=== PATIENT | male | born 1935 | race Caucasian/White ===

== ENCOUNTER 2016-05-17 15:45 | Inpatient (IN) | payer OTHER ==
[2016-05-19] MEDS ORDERED: Nitroglycerin 0.4 MG Tab.SL *PTOM SL PRN (10:35)
[2016-05-19] MEDS ORDERED: HALOPERIDOL 0.5 MG PO PRN (10:50)
[2016-05-19] MEDS ORDERED: Morphine Oral Concentrate 20 MG/ML 30 ML Bottle PO PRN (10:51)
[2016-05-19] MEDS ORDERED: Hyoscyamine 0.125 MG Tab.SL *PTOM PO PRN (10:53)
[2016-05-19] MEDS ORDERED: Scopolamine 1.5 MG Transdermal Patch *PTOM TOP PRN (10:55)
[2016-05-19] MEDS ORDERED: LORAZEPAM 0.5 MG PO PRN (10:56)
[2016-05-19] MEDS ORDERED: Codeine/guaiFENesin 100-10 MG/5 ML Syrup 5 ML Cup PO PRN (11:02)
[2016-05-19] MEDS: GLYBURIDE 5 MG PO SCH ×2 (12:16→18:48)
[2016-05-19] MEDS: Losartan 100 MG Tab *PTOM PO SCH (12:17)
[2016-05-19] MEDS ORDERED: Loperamide 2 MG Cap PO PRN (15:21)
[2016-05-19] MEDS: ACETAMINOPHEN 325 MG PO PRN ×2 (16:26→22:34)
[2016-05-19] MEDS: Simvastatin 20 MG Tab *PTOM PO SCH (20:50)
[2016-05-19] MEDS: ZANTAC 150 MG PO PRN (21:32)
[2016-05-19] MEDS: SIMETHICONE 180 MG PO PRN (21:33)
[2016-05-19] MEDS: ATENOLOL 100 MG PO SCH (21:38)
[2016-05-20] MEDS: Isosorbide Mononitrate 60 MG Tab.ER *PTOM PO SCH (08:48)
[2016-05-20] MEDS: ATROPINE PO SCH (08:48)
[2016-05-20] MEDS: [UNRECOGNIZED DRUG - OTHER] PO SCH (08:48)
[2016-05-20] MEDS: DIPHENOXYLATE PO SCH (08:48)
[2016-05-20] MEDS: LORATADINE 10 MG PO SCH (08:49)
[2016-05-20] MEDS: Furosemide 40 MG Tab *PTOM PO SCH (08:49)
[2016-05-20] MEDS: Clopidogrel 75 MG Tab *PTOM PO SCH (08:50)
[2016-05-20] MEDS ORDERED: ATENOLOL 100 MG PO SCH (09:00)
[2016-05-20] MEDS: Albuterol 8 GM Inhaler *PTOM INH PRN (09:46)
[2016-05-20] MEDS: GLYBURIDE 5 MG PO SCH ×3 (10:33→17:43)
[2016-05-20] MEDS: Losartan 100 MG Tab *PTOM PO SCH ×2 (11:44→11:45)
[2016-05-20] MEDS: ZANTAC 150 MG PO PRN ×2 (13:40→23:44)
[2016-05-20] MEDS: SIMETHICONE 180 MG PO PRN ×2 (13:41→21:20)
[2016-05-20] MEDS: Simvastatin 20 MG Tab *PTOM PO SCH (21:19)
[2016-05-20] MEDS: ATENOLOL 100 MG PO SCH (21:23)
[2016-05-20] MEDS ORDERED: Dicyclomine 20 MG Tab PO PRN (21:50)
[2016-05-20] MEDS: ACETAMINOPHEN 325 MG PO PRN (22:50)
[2016-05-21] MEDS: Albuterol 8 GM Inhaler *PTOM INH PRN (07:54)
[2016-05-21] MEDS ORDERED: Loperamide 2 MG Cap PO PRN (08:42)
[2016-05-21] MEDS: Isosorbide Mononitrate 60 MG Tab.ER *PTOM PO SCH (08:50)
[2016-05-21] MEDS: LORATADINE 10 MG PO SCH (08:50)
[2016-05-21] MEDS: Furosemide 40 MG Tab *PTOM PO SCH (08:51)
[2016-05-21] MEDS: [UNRECOGNIZED DRUG - OTHER] PO SCH (08:51)
[2016-05-21] MEDS: Clopidogrel 75 MG Tab *PTOM PO SCH (08:52)
[2016-05-21] MEDS: ATROPINE PO SCH (08:52)
[2016-05-21] MEDS: DIPHENOXYLATE PO SCH (08:52)
[2016-05-21] MEDS: Losartan 100 MG Tab *PTOM PO SCH (13:11)
[2016-05-21] MEDS: GLYBURIDE 5 MG PO SCH ×2 (13:12→19:38)
[2016-05-21] MEDS: Simvastatin 20 MG Tab *PTOM PO SCH (21:09)
[2016-05-21] MEDS: ATENOLOL 100 MG PO SCH (21:10)
[2016-05-21] MEDS: ZANTAC 150 MG PO PRN (21:21)
[2016-05-21] MEDS: ACETAMINOPHEN 325 MG PO PRN (22:46)
[2016-05-22] MEDS: ZANTAC 150 MG PO PRN (03:03)
[2016-05-22] MEDS: LORATADINE 10 MG PO SCH (09:48)
[2016-05-22] MEDS: Isosorbide Mononitrate 60 MG Tab.ER *PTOM PO SCH (09:49)
[2016-05-22] MEDS: [UNRECOGNIZED DRUG - OTHER] PO SCH (09:49)
[2016-05-22] MEDS: ATROPINE PO SCH (09:50)
[2016-05-22] MEDS: DIPHENOXYLATE PO SCH (09:50)
[2016-05-22] MEDS: Furosemide 40 MG Tab *PTOM PO SCH (09:50)
[2016-05-22] MEDS: Clopidogrel 75 MG Tab *PTOM PO SCH (09:53)
[2016-05-22 10:37] VITALS: BP 146/58
[2016-05-22] MEDS: SIMETHICONE 180 MG PO PRN (11:30)
[2016-05-22] MEDS: GLYBURIDE 5 MG PO SCH (11:31)
[2016-05-22] MEDS: Losartan 100 MG Tab *PTOM PO SCH (11:31)
--- NOTE | 2016-07-09 12:55 | HP ---
ADMISSION DATE: 05/19/2016 Scott Payan is an elderly gentleman, had a recent respite care at [place]. Clinical indications include complicated congestive failure and failure to thrive. Interval care and management was appropriate at time of his discharge, comfortable with improvement and progress. /[id number] DELICIA/FLOYD
== END 2016-05-22 13:00 | disposition hospice, home (50) | DRG 951 ==
LOC: FB.MS 05-19 10:06
PROVIDERS: ADMIT Family Medicine; ATTEND Family Medicine
DX: Z75.5 Holiday relief care (principal); I25.2 Old myocardial infarction; I50.9 Heart failure, unspecified; J44.9 Chronic obstructive pulmonary disease, unspecified; N18.9 Chronic kidney disease, unspecified; Z66 Do not resuscitate; Z51.5 Encounter for palliative care
CPT/HCPCS: 82962; A9270-GY; Q5005

== ENCOUNTER 2016-07-06 10:52 | Inpatient (IN) | payer OTHER ==
[2016-07-06] MEDS ORDERED: Nitroglycerin 0.4 MG Tab.SL *PTOM SL PRN (13:01)
[2016-07-06] MEDS ORDERED: Albuterol 8 GM Inhaler *PTOM INH PRN (13:02)
[2016-07-06] MEDS ORDERED: HALOPERIDOL 0.5 MG PO PRN (13:09)
[2016-07-06] MEDS ORDERED: Morphine Oral Concentrate 20 MG/ML 30 ML Bottle *PTOM PO PRN (13:10)
[2016-07-06] MEDS ORDERED: Hyoscyamine 0.125 MG Tab.SL PO PRN (13:11)
[2016-07-06] MEDS ORDERED: Scopolamine 1.5 MG Transdermal Patch *PTOM TOP PRN (13:12)
[2016-07-06] MEDS ORDERED: LORAZEPAM 0.5 MG PO PRN (13:13)
[2016-07-06] MEDS ORDERED: ACETAMINOPHEN 325 MG PO PRN (13:20)
[2016-07-06] MEDS ORDERED: SIMETHICONE 180 MG PO PRN (13:21)
[2016-07-06] MEDS ORDERED: GUAIFENESIN PO PRN (13:22)
[2016-07-06] MEDS ORDERED: CODEINE PO PRN (13:22)
[2016-07-06] MEDS ORDERED: ZANTAC 150MG PO PRN (13:23)
[2016-07-06] MEDS ORDERED: LORATADINE 10 MG PO PRN (13:24)
[2016-07-06] MEDS ORDERED: Cocoa Butter/Phenylephrine Rectal Supp RECTAL PRN (13:24)
[2016-07-06] MEDS ORDERED: Diclofenac Sodium 1% Gel 100 GM Tube TOP PRN (13:26)
[2016-07-06] MEDS ORDERED: DICYCLOMINE 20 MG PO PRN (13:30)
[2016-07-06] MEDS ORDERED: CALCIUM CARBONATE 750 MG PO PRN (13:32)
[2016-07-06] MEDS ORDERED: Codeine/guaiFENesin 100-10 MG/5 ML Syrup 5 ML Cup PO PRN (13:54)
[2016-07-06] MEDS ORDERED: CALCIUM CARBONATE 1000 MG PO PRN (16:00)
[2016-07-06] MEDS: Sucralfate 1 GM Tab *PTOM PO SCH ×2 (17:36→21:09)
[2016-07-06] MEDS: DICYCLOMINE 20 MG PO SCH (17:37)
[2016-07-06] MEDS: METOCLOPRAMIDE 5 MG PO SCH (17:39)
[2016-07-06] MEDS: ATENOLOL 100 MG PO SCH (18:58)
[2016-07-06] MEDS: GLYBURIDE 5 MG PO SCH (19:02)
[2016-07-06] MEDS: OXAZEPAM 15 MG PO SCH (21:11)
[2016-07-06] MEDS: ACETAMINOPHEN 325 MG PO SCH (21:12)
[2016-07-06] MEDS: Simvastatin 20 MG Tab *PTOM PO SCH (21:13)
[2016-07-07] MEDS: Sucralfate 1 GM Tab *PTOM PO SCH ×4 (08:34→20:40)
[2016-07-07] MEDS: METOCLOPRAMIDE 5 MG PO SCH ×3 (08:34→17:39)
[2016-07-07] MEDS: DICYCLOMINE 20 MG PO SCH ×3 (08:36→17:38)
[2016-07-07] MEDS: Aspirin 81 MG Tab.EC *PTOM PO SCH (08:38)
[2016-07-07] MEDS: Furosemide 40 MG Tab *PTOM PO SCH (08:39)
[2016-07-07] MEDS: Isosorbide Mononitrate 60 MG Tab.ER *PTOM PO SCH (08:40)
[2016-07-07] MEDS: Clopidogrel 75 MG Tab *PTOM PO SCH (08:44)
[2016-07-07] MEDS: ATROPINE PO SCH (08:45)
[2016-07-07] MEDS: DIPHENOXYLATE PO SCH (08:45)
[2016-07-07] MEDS: ASCORBIC ACID 500 MG PO SCH (08:46)
[2016-07-07] MEDS: Losartan 100 MG Tab *PTOM PO SCH (12:07)
[2016-07-07] MEDS: GLYBURIDE 5 MG PO SCH ×2 (12:08→19:27)
[2016-07-07] MEDS: ATENOLOL 100 MG PO SCH (19:27)
[2016-07-07] MEDS: Simvastatin 20 MG Tab *PTOM PO SCH (20:41)
[2016-07-07] MEDS: OXAZEPAM 15 MG PO SCH (23:02)
[2016-07-07] MEDS: ACETAMINOPHEN 325 MG PO SCH (23:02)
[2016-07-08] MEDS: Sucralfate 1 GM Tab *PTOM PO SCH ×4 (07:51→20:53)
[2016-07-08] MEDS: METOCLOPRAMIDE 5 MG PO SCH ×3 (07:52→17:39)
[2016-07-08] MEDS: DICYCLOMINE 20 MG PO SCH ×3 (07:53→17:38)
[2016-07-08] MEDS: ASCORBIC ACID 500 MG PO SCH (08:02)
[2016-07-08] MEDS: Furosemide 40 MG Tab *PTOM PO SCH (08:02)
[2016-07-08] MEDS: Aspirin 81 MG Tab.EC *PTOM PO SCH (08:03)
[2016-07-08] MEDS: Isosorbide Mononitrate 60 MG Tab.ER *PTOM PO SCH (08:03)
[2016-07-08] MEDS: Clopidogrel 75 MG Tab *PTOM PO SCH (08:03)
[2016-07-08] MEDS: ATROPINE PO SCH (08:09)
[2016-07-08] MEDS: DIPHENOXYLATE PO SCH (08:09)
[2016-07-08] MEDS: Losartan 100 MG Tab *PTOM PO SCH (12:09)
[2016-07-08] MEDS: GLYBURIDE 5 MG PO SCH ×2 (12:10→17:38)
[2016-07-08] MEDS: ATENOLOL 100 MG PO SCH (17:40)
[2016-07-08] MEDS: ACETAMINOPHEN 325 MG PO SCH (20:53)
[2016-07-08] MEDS: Simvastatin 20 MG Tab *PTOM PO SCH (20:54)
[2016-07-08] MEDS: OXAZEPAM 15 MG PO SCH (20:56)
[2016-07-09] MEDS: DICYCLOMINE 20 MG PO SCH (07:34)
[2016-07-09] MEDS: METOCLOPRAMIDE 5 MG PO SCH (07:35)
[2016-07-09] MEDS: Sucralfate 1 GM Tab *PTOM PO SCH (07:36)
[2016-07-09] MEDS: ASCORBIC ACID 500 MG PO SCH (07:59)
[2016-07-09] MEDS: DIPHENOXYLATE PO SCH (08:00)
[2016-07-09] MEDS: Aspirin 81 MG Tab.EC *PTOM PO SCH (08:00)
[2016-07-09] MEDS: Clopidogrel 75 MG Tab *PTOM PO SCH (08:00)
[2016-07-09] MEDS: Furosemide 40 MG Tab *PTOM PO SCH (08:00)
[2016-07-09] MEDS: Isosorbide Mononitrate 60 MG Tab.ER *PTOM PO SCH (08:00)
[2016-07-09] MEDS: ATROPINE PO SCH (08:00)
[2016-07-09 08:32] VITALS: BP 191/76
--- NOTE | 2016-07-18 09:31 | PN ---
DATE SEEN: 07/09/2016 Scott Payan is an elderly gentleman admitted through hospice for respite care at [facility]. End-stage cardiovascular disease, congestive heart failure, and poor compensation to his underlying heart disease. Respite care timing appropriate. /[id number] DELICIA/FLOYD
== END 2016-07-09 10:30 | disposition hospice, home (50) | DRG 639 ==
LOC: FB.MS 11:56
PROVIDERS: ADMIT Family Medicine; ATTEND Family Medicine
DX: E11.9 Type 2 diabetes mellitus without complications (principal); Z75.5 Holiday relief care; Z51.5 Encounter for palliative care; Z66 Do not resuscitate; Z88.0 Allergy status to penicillin; Z88.8 Allergy status to other drugs, medicaments and biological substances
CPT/HCPCS: 82962; A9270-GY; Q5005

== ENCOUNTER 2016-08-17 20:59 | Observation (INO) | payer MEDICARE, OTHER ==
[2016-08-17] MEDS ORDERED: Ondansetron 4 MG/2 ML SDV ONE (21:40)
[2016-08-17] MEDS ORDERED: Sodium Chloride 0.9% 1,000 ML IV ONE (21:43)
[2016-08-17] MEDS ORDERED: Ondansetron 4 MG/2 ML SDV IVPUSH ONE (21:44)
[2016-08-18] MEDS: Sodium Chloride 0.9% 1,000 ML IV SCH ×2 (00:25→08:25)
[2016-08-18] MEDS ORDERED: MORPHINE SULFATE PO PRN (08:19)
[2016-08-18] MEDS ORDERED: Non-Formulary Medication 1 Each (Ranitidine Hcl [Zantac] 150 MG) PO PRN (08:19)
[2016-08-18] MEDS ORDERED: NITROGLYCERIN 0.4 MG SL PRN (08:19)
--- NOTE | 2016-08-18 08:26 | PCM.HP ---
H&P History of Present Illness - General Date of Service: 08/18/16 Admit Problem/Dx: Admission Diagnosis/Problem Admission Diagnosis/Problem Diarrhea Source of Information: Patient History Limitations: Reports: No Limitations - History of Present Illness Initial Comments - Free Text/Narative: This is an 80-year-old male patient with multiple medical problems. He started having diarrhea night at 7:30. He states he had a diarrhea stool and it was watery he had a stool every hour for 24 hours. He felt he was getting dehydrated so he was went to the walk-in clinic. He was found to have a creatinine of 2.0 and was admitted. He denies fevers, chills, nausea, vomiting , abdominal pain, melena, hematochezia. He denies any exposures to any gastroenteritis. He does take Lomotil half a pill a day for loose stools. - Related Data Allergies/Adverse Reactions: Allergies Allergy/AdvReac Type Severity Reaction Status Date / Time hydromorphone [From Dilaudid] Allergy Lethargy Verified 08/18/16 03:41 penicillin Allergy Cannot Verified 08/18/16 03:41 Remember Sulfa (Sulfonamide Allergy Cannot Verified 08/18/16 03:41 Antibiotics) Remember Home Medications: Home Meds Albuterol [Ventolin HFA] 2 puff INH Q4H PRN 08/18/16 [History] Ascorbate Calcium [Vitamin C] 500 mg PO DAILY 08/18/16 [History] Aspirin 81 mg PO DAILY 08/18/16 [History] Atenolol 100 mg PO WITHDINNER 08/18/16 [History] Clopidogrel [Plavix] 75 mg PO DAILY 08/18/16 [History] Diphenoxylate HCl/Atropine [Diphenoxylate-Atrop 2.5-0.025] 2 tab PO DAILY [History] Furosemide [Lasix] 40 mg PO DAILY 08/18/16 [History] Isosorbide Mononitrate [Isosorbide Mononitrate ER] 60 mg PO DAILY 08/18/16 [ History] Losartan [Cozaar] 50 mg PO DAILY@1200 08/18/16 [History] Morphine Sulfate [Morphine Sulfate ER] 10 mg PO DAILY PRN 08/18/16 [History] Nitroglycerin 0.4 mg SL Q5M PRN 08/18/16 [History] Oxazepam [Oxazepam] 15 mg PO BEDTIME PRN 08/18/16 [History] Pantoprazole Sodium 40 mg PO DAILY 08/18/16 [History] Ranitidine HCl [Zantac] 150 mg PO BID PRN 08/18/16 [History] Simvastatin [Zocor] 10 mg PO BEDTIME 08/18/16 [History] Sucralfate [Carafate] 1 gm PO QIDACANDBED 08/18/16 [History] glyBURIDE [Glyburide] 10 mg PO BID@12,18 08/18/16 [History] Past Medical History HEENT History: Reports: Impaired Vision Cardiovascular History: Reports: CAD, Heart Failure, High Cholesterol, Hypertension, [place], SOB on Exertion Respiratory History: Reports: COPD, Pneumonia, Recurrent, SOB Gastrointestinal History: Reports: Chronic Diarrhea, Hemorrhoids Genitourinary History: Reports: Prostate Disorder, Renal Calculus Musculoskeletal History: Reports: Amputation, RA Neurological History: Reports: None Psychiatric History: Reports: Anxiety Endocrine/Metabolic History: Reports: Diabetes, Type II Dermatologic History: Reports: Seborrheic Dermatitis - Infectious Disease History Infectious Disease History: Reports: Chicken Pox, Measles, Mumps - Past Surgical History HEENT Surgical History: Reports: Cataract Surgery Male Surgical History: Reports: TURP-Transurethral Resection of Prostate Neurological Surgical History: Reports: None Musculoskeletal Surgical History: Reports: Amputation Dermatological Surgical History: Reports: Skin Biopsy Social & Family History - Family History Family Medical History: Noncontributory - Tobacco Use Smoking Status *Q: Unknown Ever Smoked Years of Tobacco use: 30 Packs/Tins Daily: 1 Used Tobacco, but Quit: No Month Tobacco Last Used: 4-5 yrs Second Hand Smoke Exposure: No - Caffeine Use Caffeine Use: Reports: Coffee Other Caffeine Use: 2 cups a day - Recreational Drug Use Recreational Drug Use: No H&P Review of Systems - Review of Systems: Review Of Systems: See Below General: Reports: No Symptoms HEENT: Reports: No Symptoms Pulmonary: Reports: No Symptoms Cardiovascular: Reports: No Symptoms Gastrointestinal: Reports: Diarrhea. Denies: Abdominal Pain, Bloody Stool, Hematemesis, Hematochezia, Nausea Genitourinary: Reports: No Symptoms Musculoskeletal: Reports: No Symptoms Skin: Reports: No Symptoms Psychiatric: Reports: No Symptoms Neurological: Reports: No Symptoms Hematologic/Lymphatic: Reports: No Symptoms Immunologic: Reports: No Symptoms Exam - Exam Exam: See Below - Vital Signs Vital Signs: Last Vital Signs Temp 98.4 F 08/18/16 06:30 Pulse 60 08/18/16 06:30 Resp 16 08/18/16 06:30 BP 139/66 08/18/16 06:30 Pulse Ox 95 08/18/16 06:30 Weight: 168 lb 11.2 oz - Exam General: Alert, Oriented, Cooperative HEENT: Hearing Intact, Mucosa Moist & [place], Posterior Pharynx Clear, TMs Clear Neck: Supple, Trachea Midline. No: Carotid Bruit Lungs: Clear to Auscultation, Normal Respiratory Effort. No: Crackles, Rales, Rhonchi Cardiovascular: Regular Rate, Regular Rhythm. No: Systolic Murmur Abdomen: Soft, Hyperactive Bowel Sounds. No: Organomegaly, Peritoneal Signs, Distention Back Exam: Normal Inspection Extremities: Other (Left BKA) Skin: Warm, Dry, Intact Neurological: Normal Tone Neuro Extensive - Mental Status: Alert, Oriented x3, Normal Mood/Affect, Normal Cognition Psychiatric: Alert, Normal Affect, Normal Mood - Patient Data Lab Results last 24 hrs: Laboratory Results - last 24 hr 08/18/16 Range/Units 06:30 POC Glucose 74 L (80-116) mg/dL *Q Meaningful Use (ADM) - VTE *Q VTE Criteria *Q: - Stroke *Q Stroke Criteria *Q: - AMI *Q AMI Criteria *Q: - Problem List (1) Gastroenteritis SNOMED Code(s): 18347791 ICD Code: K52.9 - NONINFECTIVE GASTROENTERITIS AND COLITIS, UNSPECIFIED Status: Acute Current Visit: Yes (2) Dehydration SNOMED Code(s): 75779111 ICD Code: E86.0 - DEHYDRATION Status: Acute Current Visit: Yes (3) Chronic renal failure, stage 3 (moderate) SNOMED Code(s): 09697813, 008035471 ICD Code: N18.3 - CHRONIC KIDNEY DISEASE, STAGE 3 (MODERATE) Status: Acute Current Visit: Yes Problem List Initiated/Reviewed/Updated: Yes Orders Last 24hrs: Active Orders 24 hr Category Date Time Status Admission Status [Patient Status] [ADT] Routine ADT 08/17/16 21:05 Active Patient Status [ADT] Routine ADT 08/17/16 21:05 Active Blood Glucose Check, Bedside [RC] QIDACANDBED Care 08/18/16 06:30 Active Oxygen Therapy [RC] PRN Care 08/18/16 00:04 Active Supplemental O2 [Oxygen Therapy] [RC] ASDIRECTED Care 08/18/16 00:18 Active Up ad Nelly [RC] ASDIRECTED Care 08/18/16 08:13 Ordered VTE/DVT Education [RC] Per Unit Routine Care 08/18/16 00:04 Active Vital Signs [RC] 00,04,08,12,16,20 Care 08/18/16 00:04 Active Consistent Carbohydrate Diet [DIET] Diet 08/18/16 Lunch Ordered CBC WITH AUTO DIFF [HEME] Routine Lab 08/18/16 08:11 Ordered COMPREHENSIVE METABOLIC PN,CMP [CHEM] Routine Lab 08/18/16 08:11 Ordered Albuterol [Ventolin HFA] Med 08/18/16 08:19 Ordered 2 puff INH Q4H PRN Aspirin [Aspirin] Med 08/18/16 09:00 Ordered 81 mg PO DAILY Atenolol [Atenolol] Med 08/18/16 18:00 Ordered 100 mg PO WITHDINNER Clopidogrel [Plavix] Med 08/18/16 09:00 Ordered 75 mg PO DAILY Diphenoxylate HCl/Atropine [Diphenoxylate-Atrop 2.5-0. Med 08/18/16 09:00 Ordered 025] 2 tab PO DAILY Furosemide [Lasix] Med 08/18/16 09:00 Ordered 40 mg PO DAILY Isosorbide Mononitrate [Isosorbide Mononitrate ER] Med 08/18/16 09:00 Ordered 60 mg PO DAILY Losartan [Cozaar] Med 08/18/16 12:00 Ordered 50 mg PO DAILY@1200 Morphine Sulfate [Morphine Sulfate ER] Med 08/18/16 08:19 Ordered 1 cap PO DAILY PRN Nitroglycerin [Nitroglycerin] Med 08/18/16 08:19 Ordered 0.4 mg SL Q5M PRN Pantoprazole Sodium [Pantoprazole Sodium] Med 08/18/16 09:00 Ordered 40 mg PO DAILY Ranitidine HCl [Zantac] Med 08/18/16 08:19 Ordered 150 mg PO BID PRN glyBURIDE [Glyburide] Med 08/18/16 12:00 Ordered 10 mg PO BID@12,18 Convert IV to Saline Lock [OM.PC] Routine Oth 08/18/16 08:13 Ordered Resuscitation Status Routine Resus Stat 08/18/16 00:04 Ordered Assessment/Plan Comment:: 1. Admit the patient for rehydration for observation care 2. Discussed resuscitation status. He wants to be DO NOT RESUSCITATE/DO NOT INTUBATE. 3 diabetic diet with Accu-Cheks with each meal and at at bedtime. 4. His home medications will be restarted. He can take his home medications because his observation care. 5. Up ad nelly. and in the chair when necessary. 6. I looked at his chart etc. He does have chronic renal failure.
[2016-08-18] MEDS ORDERED: Atropine/Diphenoxylate 0.025-2.5 MG Tab PO SCH (09:00)
[2016-08-18] MEDS ORDERED: ISOSORBIDE MONONITRATE 60 MG PO SCH (09:00)
[2016-08-18] MEDS ORDERED: PANTOPRAZOLE SODIUM 40 MG PO SCH (09:00)
[2016-08-18] MEDS ORDERED: Non-Formulary Medication 1 Each (Clopidogrel [Plavix] 75 MG) PO SCH (09:00)
[2016-08-18] MEDS ORDERED: Non-Formulary Medication 1 Each (Aspirin [Aspirin] 81 MG) PO SCH (09:00)
[2016-08-18] MEDS ORDERED: Non-Formulary Medication 1 Each (Furosemide [Lasix] 40 MG) PO SCH (09:00)
[2016-08-18] MEDS ORDERED: Sucralfate 1 GM Tab *PTOM PO SCH (11:30)
[2016-08-18] MEDS ORDERED: Losartan 100 MG Tab *PTOM PO SCH (12:00)
[2016-08-18] MEDS ORDERED: GLYBURIDE 5 MG PO SCH (12:00)
[2016-08-18 15:38] VITALS: BP 138/62
--- NOTE | 2016-08-18 16:22 | PCM.SN ---
- Free Text/Narrative Note: Patient did well today. He tolerated 2 meals without nausea, vomiting. One diarrheal stool this morning but none overnight or the rest of the day. Will discharge to home on same medications.
--- NOTE | 2016-08-18 16:26 | PCM.DCSUM1 ---
Discharge Summary - Hospital Course Free Text/Narrative:: Hospital course-patient was given normal saline at 125 mL an hour. He had no stools overnight. He had breakfast in the morning and 1 large diarrhea stool. We observed until the afternoon and he had no further stools. He never had fevers, chills, nausea, vomiting or abdominal pain. His creatinine went from 2.0 to 1.5. We'll discharge him to home. Brief History: This is an 80-year-old male patient with multiple medical problems. He started having diarrhea night at 7:30. He states he had a diarrhea stool and it was watery he had a stool every hour for 24 hours. He felt he was getting dehydrated so he was went to the walk-in clinic. He was found to have a creatinine of 2.0 and was admitted. He denies fevers, chills, nausea, vomiting, abdominal pain, melena, hematochezia. He denies any exposures to any gastroenteritis. He does take Lomotil half a pill a day for loose stools. - Discharge Data Discharge Date: 08/18/16 Discharge Disposition: Home, Self-Care 01 Condition: Good - Discharge Diagnosis/Problem(s) (1) Gastroenteritis SNOMED Code(s): 00982067 ICD Code: K52.9 - NONINFECTIVE GASTROENTERITIS AND COLITIS, UNSPECIFIED Status: Acute Current Visit: Yes (2) Dehydration SNOMED Code(s): 40937959 ICD Code: E86.0 - DEHYDRATION Status: Acute Current Visit: Yes (3) Chronic renal failure, stage 3 (moderate) SNOMED Code(s): 28999238, 021112155 ICD Code: N18.3 - CHRONIC KIDNEY DISEASE, STAGE 3 (MODERATE) Status: Acute Current Visit: Yes - Patient Instructions Diet: Diabetic Diet Activity: As Tolerated Driving: May Drive Today Showering/Bathing: May Shower Notify Provider of: Fever, Increased Pain, Swelling and Redness, Drainage, Nausea and/or Vomiting Other/Special Instructions: 1. Recheck with Dr. Freire 7-10 days. - Discharge Plan Home Medications: Home Meds Acetaminophen [Q-Pap] 650 mg PO Q4H PRN 08/18/16 [History] Acetaminophen [Tylenol] 325 mg PO BEDTIME 08/18/16 [History] Albuterol [Ventolin HFA] 2 puff INH Q4H PRN 08/18/16 [History] Ascorbate Calcium [Vitamin C] 500 mg PO DAILY 08/18/16 [History] Aspirin 81 mg PO DAILY 08/18/16 [History] Atenolol 100 mg PO DAILY@19008/18/16 [History] Clopidogrel [Plavix] 75 mg PO DAILY 08/18/16 [History] Diphenoxylate HCl/Atropine [Diphenoxylate-Atrop 2.5-0.025] 1 tab PO DAILY [History] Ergocalciferol (Vitamin D2) [Vitamin D] 400 unit PO DAILY 08/18/16 [History] Furosemide [Lasix] 40 mg PO DAILY 08/18/16 [History] Isosorbide Mononitrate [Isosorbide Mononitrate ER] 60 mg PO DAILY 08/18/16 [ History] LORazepam 0.5 mg PO Q2H PRN 08/18/16 [History] Loperamide [Imodium AD] 2 mg PO ASDIRECTED PRN 08/18/16 [History] Loratadine [Claritin] 10 mg PO DAILY PRN 08/18/16 [History] Losartan [Cozaar] 50 mg PO DAILY@1200 08/18/16 [History] Morphine Sulfate [Morphine Sulfate ER] 10 mg PO DAILY 08/18/16 [History] Nitroglycerin 0.4 mg SL Q5M PRN 08/18/16 [History] Oxazepam 15 mg PO BEDTIME 08/18/16 [History] Pantoprazole Sodium 40 mg PO DAILY 08/18/16 [History] Ranitidine HCl [Zantac] 300 mg PO BEDTIME PRN 08/18/16 [History] Simethicone 180 mg PO TID PRN 08/18/16 [History] Simvastatin [Zocor] 10 mg PO DAILY@19008/18/16 [History] Sucralfate [Carafate] 1 gm PO QIDACANDBED 08/18/16 [History] glyBURIDE [Glyburide] 10 mg PO BID@12,18 08/18/16 [History] - Discharge Summary/Plan Comment DC Time >30 min.: No - Patient Data Vitals - Most Recent: Last Vital Signs Temp 98.6 F 08/18/16 15:37 Pulse 61 08/18/16 15:37 Resp 16 08/18/16 15:37 BP 138/62 08/18/16 15:37 Pulse Ox 95 08/18/16 15:37 Weight - Most Recent: 168 lb 11.2 oz I&O - Last 24 hours: Intake & Output 08/18/16 08/18/16 08/18/16 06:59 14:59 22:59 Intake Total 1863 1181 Output Total 500 Balance 1363 1181 Lab Results - Last 24 hrs: Laboratory Results - last 24 hr 08/18/16 08/18/16 08/18/16 Range/Units 06:30 08:45 08:45 WBC 5.9 (4.5-12.0) X10-3/uL RBC 4.17 L (4.30-5.75) x10(6)uL Hgb 12.1 (11.5-15.5) g/dL Hct 36.1 (30.0-51.3) % MCV 86.6 (80-96) fL MCH 29.0 (27.7-33.6) pg MCHC 33.5 (32.2-35.4) g/dL RDW 13.8 (11.5-15.5) % Plt Count 157 (125-369) X10(3)uL MPV 9.3 (7.4-10.4) fL Neut % (Auto) 71.1 (46-82) % Lymph % (Auto) 13.9 (13-37) % Warren % (Auto) 7.2 (4-12) % Eos % (Auto) 7 H (1.0-5.0) % Baso % (Auto) 1 (0-2) % Neut # (Auto) 4.3 (1.6-8.3) # Lymph # (Auto) 0.8 (0.6-5.0) # Warren # (Auto) 0.4 (0.0-1.3) # Eos # (Auto) 0.4 (0.0-0.8) # Baso # (Auto) 0.0 (0.0-0.2) # Sodium 140 (135-145) mmol/L Potassium 4.2 (3.5-5.3) mmol/L Chloride 110 D (100-110) mmol/L Carbon Dioxide 24 (23-29) mmol/L BUN 32 H (8-23) mg/dL Creatinine 1.5 H (0.6-1.3) mg/dL Est Cr Clr Drug Dosing 41.14 mL/min Estimated GFR (MDRD) 45 L (>60) BUN/Creatinine Ratio 21.3 H (9-20) Glucose 120 H D (80-116) mg/dL POC Glucose 74 L (80-116) mg/dL Calcium 8.9 (8.6-10.2) mg/dL Total Bilirubin 0.5 (0.1-1.3) mg/dL AST 13 (5-27) IU/L ALT 11 L D (14-26) IU/L Alkaline Phosphatase 77 (56-112) IU/L Total Protein 6.8 (6.0-8.0) g/dL Albumin 3.8 (3.2-4.6) g/dL Globulin 3.0 g/dL Albumin/Globulin Ratio 1.3 06/10/17 Range/Units 12:23 WBC (4.5-12.0) X10-3/uL RBC (4.30-5.75) x10(6)uL Hgb (11.5-15.5) g/dL Hct (30.0-51.3) % MCV (80-96) fL MCH (27.7-33.6) pg MCHC (32.2-35.4) g/dL RDW (11.5-15.5) % Plt Count (125-369) X10(3)uL MPV (7.4-10.4) fL Neut % (Auto) (46-82) % Lymph % (Auto) (13-37) % Warren % (Auto) (4-12) % Eos % (Auto) (1.0-5.0) % Baso % (Auto) (0-2) % Neut # (Auto) (1.6-8.3) # Lymph # (Auto) (0.6-5.0) # Warren # (Auto) (0.0-1.3) # Eos # (Auto) (0.0-0.8) # Baso # (Auto) (0.0-0.2) # Sodium (135-145) mmol/L Potassium (3.5-5.3) mmol/L Chloride (100-110) mmol/L Carbon Dioxide (23-29) mmol/L BUN (8-23) mg/dL Creatinine (0.6-1.3) mg/dL Est Cr Clr Drug Dosing mL/min Estimated GFR (MDRD) (>60) BUN/Creatinine Ratio (9-20) Glucose (80-116) mg/dL POC Glucose 251 H D (80-116) mg/dL Calcium (8.6-10.2) mg/dL Total Bilirubin (0.1-1.3) mg/dL AST (5-27) IU/L ALT (14-26) IU/L Alkaline Phosphatase (56-112) IU/L Total Protein (6.0-8.0) g/dL Albumin (3.2-4.6) g/dL Globulin g/dL Albumin/Globulin Ratio Med Orders - Current: Current Medications Diphenoxylate HCl/Atropine (Lomotil 0.025-2.5 Mg) 2 tab PO DAILY [facility] Last Admin: 08/18/16 13:33 Dose: Not Given Glyburide (Micronase) 10 mg PO DAILY@1200,1900 [facility] Last Admin: 08/18/16 12:27 Dose: 10 mg Losartan Potassium (Cozaar) 50 mg PO DAILY@1200 [facility] Last Admin: 08/18/16 12:26 Dose: 50 mg Non-Formulary Medication (Albuterol [Ventolin Hfa]) 2 puff INH Q4H PRN PRN Reason: Shortness of Breath Non-Formulary Medication (Aspirin [Aspirin]) 81 mg PO DAILY [facility] Non-Formulary Medication (Atenolol [Atenolol]) 100 mg PO WITHDINNER [facility] Non-Formulary Medication (Clopidogrel [Plavix]) 75 mg PO DAILY [facility] Non-Formulary Medication (Furosemide [Lasix]) 40 mg PO DAILY [facility] Non-Formulary Medication (Isosorbide Mononitrate [Isosorbide Mononitrate Er]) 60 mg PO DAILY [facility] Non-Formulary Medication (Morphine Sulfate [Morphine Sulfate Er]) 1 cap PO DAILY PRN PRN Reason: Pain Non-Formulary Medication (Nitroglycerin [Nitroglycerin]) 0.4 mg SL Q5M PRN PRN Reason: Chest Pain Non-Formulary Medication (Pantoprazole Sodium [Pantoprazole Sodium]) 40 mg PO DAILY [facility] Non-Formulary Medication (Ranitidine Hcl [Zantac]) 150 mg PO BID PRN PRN Reason: Heartburn Sucralfate (Carafate) 1 gm PO QIDACANDBED [facility] Last Admin: 08/18/16 12:26 Dose: 1 gm Discontinued Medications Sodium Chloride (Normal Saline) 1,000 mls @ 999 mls/hr IV .BOLUS ONE Stop: 08/17/16 22:43 Last Admin: 08/17/16 22:00 Dose: 999 mls/hr Sodium Chloride (Normal Saline) 1,000 mls @ 125 mls/hr IV ASDIRECTED [facility] Last Infusion: 08/18/16 08:25 Dose: 125 mls/hr Ondansetron HCl (Zofran) Confirm Administered Dose 4 mg .ROUTE .STK-MED ONE Stop: 08/17/16 21:41 Last Admin: 08/17/16 22:43 Dose: Not Given Ondansetron HCl (Zofran) 4 mg IVPUSH ONETIME ONE Stop: 08/17/16 21:45 Last Admin: 08/17/16 22:43 Dose: Not Given *Q Meaningful Use (DIS) - VTE *Q VTE Criteria *Q: - Stroke *Q Stroke Criteria *Q: - AMI *Q AMI Criteria *Q:
[2016-08-18] MEDS ORDERED: Non-Formulary Medication 1 Each (Atenolol [Atenolol] 100 MG) PO SCH (18:00)
--- NOTE | 2016-08-20 13:34 | ER ---
DATE SEEN: HISTORY OF PRESENT ILLNESS: The patient is an 80-year-old gentleman who saw the nurse practitioner for diarrhea he has had for the last couple of days. He was concerned because he had elevated creatinine which is new for him that he might be dehydrated. The patient states he has no abdominal pain. Mild nausea. No fever. States his diarrhea is watery. MEDICATIONS: Please see nurse's note. ALLERGIES: Dilaudid, penicillin and sulfa. PAST MEDICAL HISTORY: A hospice patient recently. REVIEW OF SYSTEMS: CONSTITUTIONAL: No fever. RESPIRATORY: No shortness of breath. PHYSICAL EXAMINATION: VITALS: He is afebrile. Vitally stable. LUNGS: Clear to auscultation bilaterally. HEART: Regular rhythm. ABDOMEN: Soft. Positive bowel sounds. No guarding. No rebounding. No costovertebral angle tenderness. EXTREMITIES: No cyanosis, clubbing or edema. DERMATOLOGIC: No rashes. LABORATORY DATA: His creatinine was 2.1 CBC within normal limits. ASSESSMENT: 1. Diarrhea. 2. Dehydration. PLAN: We will admit him for observation, rehydrate him. Give him Zofran as needed for nausea. /[id number] TYLER/FLOYD
== END 2016-08-18 17:00 | disposition home or self-care (01) ==
LOC: FB.MS 20:59
PROVIDERS: ADMIT Physical Medicine & Rehabilitation Sports Medicine; ATTEND Physical Medicine & Rehabilitation Sports Medicine
DX: K52.9 Noninfective gastroenteritis and colitis, unspecified (principal); E86.0 Dehydration; N18.3 Chronic kidney disease, stage 3 (moderate); Z79.82 Long term (current) use of aspirin; Z79.899 Other long term (current) drug therapy; Z88.0 Allergy status to penicillin; Z88.2 Allergy status to sulfonamides; Z88.8 Allergy status to other drugs, medicaments and biological substances; R19.7 Diarrhea, unspecified
CPT/HCPCS: 36415; 80053; 82962; 85025; 96360; 96361; A9270; G0378; G0379; J7040; 99217; 99219

== ENCOUNTER 2019-04-11 16:57 | Emergency (ER) | payer MEDICARE, OTHER ==
[2019-04-11] MEDS ORDERED: Ondansetron 4 MG/2 ML SDV IVPUSH ONE (17:45)
[2019-04-11] MEDS ORDERED: Pantoprazole 40 MG Vial IVPUSH ONE (17:45)
[2019-04-11] MEDS ORDERED: Ketorolac 30 MG/ML SDV IVPUSH ONE (17:45)
[2019-04-11] MEDS ORDERED: Sodium Chloride 0.9% 10 ML Syringe FLUSH PRN (17:45)
--- NOTE | 2019-04-11 17:54 | EDM.PDOC ---
ED HPI GENERAL MEDICAL PROBLEM - General Chief Complaint: Abdominal Pain Stated Complaint: DIZZY, DEHYDRATED Time Seen by Provider: 04/11/19 17:50 Source of Information: Reports: Patient History Limitations: Reports: No Limitations - History of Present Illness INITIAL COMMENTS - FREE TEXT/NARRATIVE: Scott is a 83 yo male with diarrhea,dyspepsia for 1.5 weeks. Has been seen 3 times in that period of time. Also complains of diffuse abdominal pain,poorly localized. Has had this episodes before,with no definitive diagnosis. He is currently on Cipro/Flagyl for a presumptive diagnosis of Acute Diverticulitis.Scott has a h/o HTN,CHF,CKD,previously all well controlled. - Related Data Allergies Allergy/AdvReac Type Severity Reaction Status Date / Time hydromorphone [From Dilaudid] Allergy Lethargy Verified 08/18/16 03:41 penicillin Allergy Cannot Verified 08/18/16 03:41 Remember Sulfa (Sulfonamide Allergy Cannot Verified 08/18/16 03:41 Antibiotics) Remember Home Meds: Home Meds Acetaminophen [Q-Pap] 650 mg PO Q4H PRN 08/18/16 [History] Acetaminophen [Tylenol] 325 mg PO BEDTIME 08/18/16 [History] Albuterol [Ventolin HFA] 2 puff INH Q4H PRN 08/18/16 [History] Ascorbate Calcium [Vitamin C] 500 mg PO DAILY 08/18/16 [History] Aspirin 81 mg PO DAILY 08/18/16 [History] Clopidogrel [Plavix] 75 mg PO DAILY 08/18/16 [History] Diphenoxylate HCl/Atropine [Diphenoxylate-Atrop 2.5-0.025] 1 tab PO DAILY [History] Ergocalciferol (Vitamin D2) [Vitamin D] 400 unit PO DAILY 08/18/16 [History] Furosemide [Lasix] 40 mg PO DAILY 08/18/16 [History] Isosorbide Mononitrate [Isosorbide Mononitrate ER] 60 mg PO DAILY 08/18/16 [ History] LORazepam 0.5 mg PO Q2H PRN 08/18/16 [History] Loperamide [Imodium AD] 2 mg PO ASDIRECTED PRN 08/18/16 [History] Loratadine [Claritin] 10 mg PO DAILY PRN 08/18/16 [History] Losartan [Cozaar] 50 mg PO DAILY@1200 08/18/16 [History] Morphine Sulfate [Morphine Sulfate ER] 10 mg PO DAILY 08/18/16 [History] Nitroglycerin 0.4 mg SL Q5M PRN 08/18/16 [History] Oxazepam 15 mg PO BEDTIME 08/18/16 [History] Pantoprazole Sodium 40 mg PO DAILY 08/18/16 [History] Ranitidine HCl [Zantac] 300 mg PO BEDTIME PRN 08/18/16 [History] Simethicone 180 mg PO TID PRN 08/18/16 [History] Simvastatin [Zocor] 10 mg PO DAILY@19008/18/16 [History] Sucralfate [Carafate] 1 gm PO QIDACANDBED 08/18/16 [History] atenoloL [Atenolol] 100 mg PO DAILY@189908/18/16 [History] glyBURIDE [Glyburide] 10 mg PO BID@,18 08/18/16 [History] Past Medical History HEENT History: Reports: Impaired Vision Cardiovascular History: Reports: CAD, Heart Failure, High Cholesterol, Hypertension, [place], SOB on Exertion Respiratory History: Reports: COPD, Pneumonia, Recurrent, SOB Gastrointestinal History: Reports: Chronic Diarrhea, Hemorrhoids Genitourinary History: Reports: Prostate Disorder, Renal Calculus Musculoskeletal History: Reports: Amputation, RA Neurological History: Reports: None Psychiatric History: Reports: Anxiety Endocrine/Metabolic History: Reports: Diabetes, Type II Dermatologic History: Reports: Seborrheic Dermatitis - Infectious Disease History Infectious Disease History: Reports: Chicken Pox, Measles, Mumps - Past Surgical History HEENT Surgical History: Reports: Cataract Surgery Male Surgical History: Reports: TURP-Transurethral Resection of Prostate Neurological Surgical History: Reports: None Musculoskeletal Surgical History: Reports: Amputation Dermatological Surgical History: Reports: Skin Biopsy Social & Family History - Family History Family Medical History: Noncontributory - Caffeine Use Caffeine Use: Reports: Coffee Other Caffeine Use: 2 cups a day ED ROS GENERAL - Review of Systems Review Of Systems: Comprehensive ROS is negative, except as noted in HPI. ED EXAM, GI/ABD - Physical Exam Exam: See Below Exam Limited By: No Limitations General Appearance: Alert, WD/WN Eyes: Bilateral: Normal Appearance, EOMI Ears: Normal External Exam, Normal Canal, Hearing Grossly Normal, Normal TMs Nose: Normal Inspection, Normal Mucosa, No Blood Throat/Mouth: Normal Inspection, Normal Lips, Normal Teeth, Normal Gums, Normal Oropharynx, Normal Voice, No Airway Compromise Neck: Normal Inspection, Supple, Non-Tender, Full Range of Motion Respiratory/Chest: No Respiratory Distress, Lungs Clear Cardiovascular: Normal Peripheral Pulses GI/Abdominal Exam: Normal Bowel Sounds, Soft, Non-Tender, No Organomegaly Extremities: Normal Inspection Neurological: Alert, Oriented, CN II-XII Intact Psychiatric: Anxious Skin Exam: Dry Course - Vital Signs Last Recorded V/S: Last Vital Signs Temp 97.2 F 04/11/19 16:57 Pulse 68 04/11/19 20:30 Resp 18 04/11/19 20:30 BP 175/60 H 04/11/19 20:30 Pulse Ox 98 04/11/19 20:30 - Orders/Labs/Meds Orders: Active Orders 24 hr Category Date Time Status EKG Documentation Completion [RC] ASDIRECTED Care 04/11/19 17:46 Active Abdomen Pelvis w Cont [CT] Stat Exams 04/11/19 17:45 Taken C DIFFICILE AG/TOXIN W/REFLEX [RM] Stat Lab 04/11/19 17:47 Ordered UA W/MICROSCOPIC [URIN] Stat Lab 04/11/19 17:48 Ordered Sodium Chloride 0.9% [Normal Saline] 1,000 ml Med 04/11/19 18:00 Active IV ASDIRECTED Sodium Chloride 0.9% [Saline Flush] Med 04/11/19 17:45 Active 10 ml FLUSH ASDIRECTED PRN Peripheral IV Insertion Adult [OM.PC] Routine Oth 04/11/19 17:45 Ordered EKG 12 Lead [EK] Routine Ther 04/11/19 17:45 Ordered Medication Orders Sodium Chloride (Normal Saline) 1,000 mls @ 75 mls/hr IV ASDIRECTED JAVON Last Admin: 04/11/19 17:54 Dose: 75 mls/hr Sodium Chloride (Saline Flush) 10 ml FLUSH ASDIRECTED PRN PRN Reason: Keep Vein Open Labs: Laboratory Tests 04/11/19 04/11/19 04/11/19 Range/Units 17:40 17:40 17:40 WBC 7.0 (4.5-12.0) X10-3/uL RBC 4.53 (4.30-5.75) x10(6)uL Hgb 13.6 (13.5-17.8) g/dL Hct 41.3 (30.0-51.3) % MCV 91.1 (80-96) fL MCH 30.0 (27.7-33.6) pg MCHC 32.9 (32.2-35.4) g/dL RDW 15.0 (11.5-15.5) % Plt Count 189 (125-369) X10(3)uL MPV 8.5 (7.4-10.4) fL Neut % (Auto) 76.5 (46-82) % Lymph % (Auto) 11.4 L (13-37) % [place] % (Auto) 7.0 (4-12) % Eos % (Auto) 5 (1.0-5.0) % Baso % (Auto) 1 (0-2) % Neut # (Auto) 5.4 (1.6-8.3) # Lymph # (Auto) 0.8 (0.6-5.0) # [place] # (Auto) 0.5 (0.0-1.3) # Eos # (Auto) 0.3 (0.0-0.8) # Baso # (Auto) 0.0 (0.0-0.2) # Sodium 142 (135-145) mmol/L Potassium 3.8 (3.5-5.3) mmol/L Chloride 105 (100-110) mmol/L Carbon Dioxide 29 (21-32) mmol/L BUN 24 H (7-18) mg/dL Creatinine 1.5 H (0.70-1.30) mg/dL Est Cr Clr Drug Dosing 37.63 mL/min Estimated GFR (MDRD) 45 L (>60) BUN/Creatinine Ratio 16.0 (9-20) Glucose 176 H (80-116) mg/dL Calcium 9.1 (8.6-10.2) mg/dL Total Bilirubin 0.4 (0.1-1.3) mg/dL AST 31 H (5-25) IU/L ALT 26 (12-36) U/L Alkaline Phosphatase 72 (56-112) IU/L Troponin I 22.0 (4.0-60.3) pg/mL C-Reactive Protein (0.5-0.9) mg/dL Total Protein 6.8 (6.0-8.0) g/dL Albumin 3.7 (3.2-4.6) g/dL Globulin 3.1 g/dL Albumin/Globulin Ratio 1.2 Amylase 54 (25-115) U/L 04/11/19 Range/Units 18:54 WBC (4.5-12.0) X10-3/uL RBC (4.30-5.75) x10(6)uL Hgb (13.5-17.8) g/dL Hct (30.0-51.3) % MCV (80-96) fL MCH (27.7-33.6) pg MCHC (32.2-35.4) g/dL RDW (11.5-15.5) % Plt Count (125-369) X10(3)uL MPV (7.4-10.4) fL Neut % (Auto) (46-82) % Lymph % (Auto) (13-37) % [place] % (Auto) (4-12) % Eos % (Auto) (1.0-5.0) % Baso % (Auto) (0-2) % Neut # (Auto) (1.6-8.3) # Lymph # (Auto) (0.6-5.0) # [place] # (Auto) (0.0-1.3) # Eos # (Auto) (0.0-0.8) # Baso # (Auto) (0.0-0.2) # Sodium (135-145) mmol/L Potassium (3.5-5.3) mmol/L Chloride (100-110) mmol/L Carbon Dioxide (21-32) mmol/L BUN (7-18) mg/dL Creatinine (0.70-1.30) mg/dL Est Cr Clr Drug Dosing mL/min Estimated GFR (MDRD) (>60) BUN/Creatinine Ratio (9-20) Glucose (80-116) mg/dL Calcium (8.6-10.2) mg/dL Total Bilirubin (0.1-1.3) mg/dL AST (5-25) IU/L ALT (12-36) U/L Alkaline Phosphatase (56-112) IU/L Troponin I (4.0-60.3) pg/mL C-Reactive Protein 0.2 L (0.5-0.9) mg/dL Total Protein (6.0-8.0) g/dL Albumin (3.2-4.6) g/dL Globulin g/dL Albumin/Globulin Ratio Amylase (25-115) U/L Meds: Medications Generic Name Dose Route Start Last Admin Trade Name Freq PRN Reason Stop Dose Admin Sodium Chloride 1,000 mls @ 75 mls/hr 04/11/19 18:00 04/11/19 17:54 Normal Saline IV 75 mls/hr ASDIRECTED JAVON Administration Sodium Chloride 10 ml 04/11/19 17:45 Saline Flush FLUSH ASDIRECTED PRN Keep Vein Open Discontinued Medications Generic Name Dose Route Start Last Admin Trade Name Freq PRN Reason Stop Dose Admin Diatrizoate Meglum/Diatrizoate Sod 30 ml 04/11/19 18:17 04/11/19 19:28 Gastrografin 37% PO 04/11/19 18:18 30 ml . DIRECTED ONE Administration Iopamidol 100 ml 04/11/19 18:17 04/11/19 19:28 Isovue-370 (76%) IV 04/11/19 18:18 80 ml . DIRECTED ONE Administration Ketorolac Tromethamine 15 mg 04/11/19 17:45 04/11/19 17:54 Toradol IVPUSH 04/11/19 17:46 15 mg ONETIME ONE Administration Ondansetron HCl 4 mg 04/11/19 17:45 04/11/19 17:59 Zofran IVPUSH 04/11/19 17:46 4 mg ONETIME ONE Administration Pantoprazole Sodium 40 mg 04/11/19 17:45 04/11/19 17:58 Protonix Iv IVPUSH 04/11/19 17:46 40 mg ONETIME ONE Administration Departure - Departure Time of Disposition: 21:22 Disposition: Home, Self-Care 01 Condition: Good Clinical Impression: Pancreatic cancer - Discharge Information Referrals: Brandyn Freire MD [Primary Care Provider] - Forms: ED Department Discharge Sepsis Event Note - Evaluation Sepsis Screening Result: No Definite Risk - Focused Exam Vital Signs: Vital Signs Temp Pulse Resp BP Pulse Ox 04/11/19 20:30 68 18 175/60 H 98 04/11/19 16:57 97.2 F 72 16 197/68 H 98 Date Exam was Performed: 04/11/19 Time Exam was Performed: 21:20 - Problem List & Annotations (1) Dyspepsia SNOMED Code(s): 834477738 Code(s): R10.13 - EPIGASTRIC PAIN Status: Acute Current Visit: Yes (2) CKD (chronic kidney disease) SNOMED Code(s): 445203397 Code(s): N18.9 - CHRONIC KIDNEY DISEASE, UNSPECIFIED Status: Acute Current Visit: Yes (3) Diarrhea SNOMED Code(s): 71095172 Code(s): R19.7 - DIARRHEA, UNSPECIFIED Status: Acute Current Visit: Yes (4) Anxiety SNOMED Code(s): 76673917 Code(s): F41.9 - ANXIETY DISORDER, UNSPECIFIED Status: Acute Current Visit: Yes (5) Colon adenocarcinoma SNOMED Code(s): 314425730 Code(s): C18.9 - MALIGNANT NEOPLASM OF COLON, UNSPECIFIED Status: Acute Current Visit: Yes (6) Pancreatic cancer SNOMED Code(s): 356119118 Code(s): C25.9 - MALIGNANT NEOPLASM OF PANCREAS, UNSPECIFIED Status: Acute Current Visit: Yes Qualifiers: Pancreatic malignancy location: unspecified Qualified Code(s): C25.9 - Malignant neoplasm of pancreas, unspecified - Problem List Review Problem List Initiated/Reviewed/Updated: Yes - My Orders Last 24 Hours: My Active Orders 04/11/19 17:45 Abdomen Pelvis w Cont [CT] Stat Sodium Chloride 0.9% [Saline Flush] 10 ml FLUSH ASDIRECTED PRN Peripheral IV Insertion Adult [OM.PC] Routine EKG 12 Lead [EK] Routine 04/11/19 17:46 EKG Documentation Completion [RC] ASDIRECTED 04/11/19 17:47 C DIFFICILE AG/TOXIN W/REFLEX [RM] Stat 04/11/19 17:48 UA W/MICROSCOPIC [URIN] Stat 04/11/19 18:00 Sodium Chloride 0.9% [Normal Saline] 1,000 ml IV ASDIRECTED - Assessment/Plan Last 24 Hours: My Active Orders 04/11/19 17:45 Abdomen Pelvis w Cont [CT] Stat Sodium Chloride 0.9% [Saline Flush] 10 ml FLUSH ASDIRECTED PRN Peripheral IV Insertion Adult [OM.PC] Routine EKG 12 Lead [EK] Routine 04/11/19 17:46 EKG Documentation Completion [RC] ASDIRECTED 04/11/19 17:47 C DIFFICILE AG/TOXIN W/REFLEX [RM] Stat 04/11/19 17:48 UA W/MICROSCOPIC [URIN] Stat 04/11/19 18:00 Sodium Chloride 0.9% [Normal Saline] 1,000 ml IV ASDIRECTED Plan: CT showed malignancy of the Colon and Pancreas. I discussed options,offered admission and he declined. Will go to the office to discuss with PCP on options of treatment,if any.
[2019-04-11] MEDS ORDERED: Sodium Chloride 0.9% 1,000 ML IV SCH (18:00)
[2019-04-11] MEDS ORDERED: Iopamidol 755 Mg/ML 100 ML Bottle IV ONE (18:17)
[2019-04-11] MEDS ORDERED: Diatrizoate Meglumine/Diatrizoate Sodium 37% 30 ML Bottle PO ONE (18:17)
[2019-04-12 03:23] VITALS: BP 195/96; PULSE 72
== END 2019-04-11 21:35 | disposition home or self-care (01) ==
LOC: FB.ED 16:57
DX: C25.9 Malignant neoplasm of pancreas, unspecified (principal); I11.0 Hypertensive heart disease with heart failure; I50.9 Heart failure, unspecified; E78.00 Pure hypercholesterolemia, unspecified; I25.2 Old myocardial infarction; I25.10 Atherosclerotic heart disease of native coronary artery without angina pectoris; J44.9 Chronic obstructive pulmonary disease, unspecified; E11.9 Type 2 diabetes mellitus without complications; Z88.0 Allergy status to penicillin; Z88.2 Allergy status to sulfonamides; Z88.5 Allergy status to narcotic agent; Z79.82 Long term (current) use of aspirin; Z79.899 Other long term (current) drug therapy; Z79.02 Long term (current) use of antithrombotics/antiplatelets
CPT/HCPCS: 36415; 74177; 80053; 82150; 84484; 85025; 93005; 96361; 96374; 96375; 99284; 99284-25; C9113; J1885; J2405; J7030; Q9963; Q9967

== ENCOUNTER 2019-06-09 16:00 | Emergency (ER) | payer MEDICARE, OTHER ==
[2019-06-09] MEDS ORDERED: Sodium Chloride 0.9% 10 ML Syringe FLUSH PRN (17:33)
[2019-06-09] MEDS ORDERED: Acetaminophen/HYDROcodone 325-5 MG Tab PO ONE (17:33)
--- NOTE | 2019-06-09 17:40 | EDM.PDOC ---
ED HPI GENERAL MEDICAL PROBLEM - General Chief Complaint: Abdominal Pain Stated Complaint: UPPER ABDOMINAL PAIN Time Seen by Provider: 06/09/19 16:35 Source of Information: Reports: Patient, Old Records History Limitations: Reports: No Limitations - History of Present Illness INITIAL COMMENTS - FREE TEXT/NARRATIVE: Scott comes into [facility] ED with a 26 hr hx of upper abdominal pains, intermittent, and nonradiating. There is no abdominal distention, nausea, vomiting, diarrhea, or constipation. There is no cough, chest pain, SOB, fever, chills, or voiding sxs. He was diagnosed with pancreatic CA and colon CA earlier this month, and is awaiting further diagnostic testing this Spring. He does not want surgery, further diagnositic imaging, or chemotherapy. He has Hydrocodone at home, and took some last pm and this early am with some improvement. left side abd Pain Score (Numeric/FACES): 7 - Related Data Allergies Allergy/AdvReac Type Severity Reaction Status Date / Time hydromorphone [From Dilaudid] Allergy Lethargy Verified 06/09/19 16:59 penicillin Allergy Cannot Verified 06/09/19 16:59 Remember Sulfa (Sulfonamide Allergy Cannot Verified 06/09/19 16:59 Antibiotics) Remember Home Meds: Home Meds Nitroglycerin 0.4 mg SL Q5M PRN 08/18/16 [History] Oxazepam 15 mg PO BEDTIME 08/18/16 [History] Omeprazole 20 mg PO DAILY 06/09/19 [History] guaiFENesin/Codeine Phosphate [Guaiatussin AC Liquid] 5 ml PO Q4H PRN 06/09/19 [ History] Past Medical History HEENT History: Reports: Impaired Vision Cardiovascular History: Reports: CAD, Heart Failure, High Cholesterol, Hypertension, [place], SOB on Exertion Respiratory History: Reports: COPD, Pneumonia, Recurrent, SOB Gastrointestinal History: Reports: Chronic Diarrhea, Hemorrhoids Genitourinary History: Reports: Prostate Disorder, Renal Calculus Musculoskeletal History: Reports: Amputation, RA Neurological History: Reports: None Psychiatric History: Reports: Anxiety Endocrine/Metabolic History: Reports: Diabetes, Type II Oncologic (Cancer) History: Reports: Colon, Pancreatic Dermatologic History: Reports: Seborrheic Dermatitis - Infectious Disease History Infectious Disease History: Reports: Chicken Pox, Measles, Mumps - Past Surgical History HEENT Surgical History: Reports: Cataract Surgery Male Surgical History: Reports: TURP-Transurethral Resection of Prostate Neurological Surgical History: Reports: None Musculoskeletal Surgical History: Reports: Amputation Dermatological Surgical History: Reports: Skin Biopsy Social & Family History - Family History Family Medical History: Noncontributory - Tobacco Use Smoking Status *Q: Never Smoker - Caffeine Use Caffeine Use: Reports: Coffee, Tea Other Caffeine Use: 2 cups a day - Recreational Drug Use Recreational Drug Use: No ED ROS GENERAL - Review of Systems Review Of Systems: See Below Constitutional: Reports: Malaise, Weakness, Fatigue, Decreased Appetite, Weight Loss HEENT: Reports: No Symptoms, Vertigo Cardiovascular: Reports: No Symptoms Endocrine: Reports: No Symptoms GI/Abdominal: Reports: Abdominal Pain, Decreased Appetite : Reports: No Symptoms Musculoskeletal: Reports: No Symptoms Skin: Reports: No Symptoms Neurological: Reports: No Symptoms Psychiatric: Reports: No Symptoms Hematologic/Lymphatic: Reports: No Symptoms Immunologic: Reports: No Symptoms ED EXAM, GI/ABD - Physical Exam Exam: See Below Exam Limited By: No Limitations General Appearance: Alert, WD/WN, No Apparent Distress, Anxious Eyes: Bilateral: Normal Appearance, EOMI Ears: Normal External Exam Nose: Normal Inspection Throat/Mouth: Normal Inspection, Normal Oropharynx Head: Normocephalic Neck: Normal Inspection Respiratory/Chest: Lungs Clear Cardiovascular: Regular Rate, Rhythm GI/Abdominal Exam: Normal Bowel Sounds, Soft, Non-Tender, No Organomegaly, No Distention, No Mass (Male) Exam: Deferred Rectal (Males) Exam: Deferred Back Exam: Normal Inspection Extremities: Normal Inspection Neurological: Alert, Oriented, CN II-XII Intact, Normal Cognition, No Motor/ Sensory Deficits Psychiatric: Normal Affect, Anxious Skin Exam: Warm, Dry, Intact, Normal Color, No Rash Lymphatic: No Adenopathy Course - Vital Signs Text/Narrative:: Following assessment, I started an IV in the LUE and administered 2L D5LR and Hydrocodone 5/325 tab for sxs relief. He was clinically improved at time of discharge. Last Recorded V/S: Last Vital Signs Temp 36.3 C 06/09/19 16:00 Pulse 64 06/09/19 16:00 Resp 18 06/09/19 16:00 BP 115/45 L 06/09/19 16:00 Pulse Ox 97 06/09/19 16:00 - Orders/Labs/Meds Orders: Active Orders 24 hr Category Date Time Status Dextrose 5%-Lactated Ringers 2,000 ml Med 06/09/19 17:45 Active IV ASDIRECTED Sodium Chloride 0.9% [Saline Flush] Med 06/09/19 17:33 Active 10 ml FLUSH ASDIRECTED PRN Peripheral IV Insertion Adult [OM.PC] Routine Oth 06/09/19 17:33 Ordered Medication Orders Dextrose/Lactated Ringer's (Dextrose 5%-Lactated Ringers) 2,000 mls @ 999 mls/ hr IV ASDIRECTED JAVON Last Admin: 06/09/19 17:56 Dose: 999 mls/hr Sodium Chloride (Saline Flush) 10 ml FLUSH ASDIRECTED PRN PRN Reason: Keep Vein Open Last Admin: 06/09/19 17:57 Dose: 10 ml Labs: Laboratory Tests 06/09/19 06/09/19 06/09/19 Range/Units 16:40 16:40 16:40 WBC 10.9 (4.5-12.0) X10-3/uL RBC 4.87 (4.30-5.75) x10(6)uL Hgb 14.6 (13.5-17.8) g/dL Hct 44.2 (30.0-51.3) % MCV 90.7 (80-96) fL MCH 30.0 (27.7-33.6) pg MCHC 33.1 (32.2-35.4) g/dL RDW 15.0 (11.5-15.5) % Plt Count 196 (125-369) X10(3)uL MPV 9.0 (7.4-10.4) fL Neut % (Auto) 84.8 H (46-82) % Lymph % (Auto) 7.6 L (13-37) % [place] % (Auto) 5.1 (4-12) % Eos % (Auto) 2 (1.0-5.0) % Baso % (Auto) 1 (0-2) % Neut # (Auto) 9.2 H (1.6-8.3) # Lymph # (Auto) 0.8 (0.6-5.0) # [place] # (Auto) 0.6 (0.0-1.3) # Eos # (Auto) 0.2 (0.0-0.8) # Baso # (Auto) 0.1 (0.0-0.2) # Sodium 139 (135-145) mmol/L Potassium 5.5 H D (3.5-5.3) mmol/L Chloride 101 (100-110) mmol/L Carbon Dioxide 30 (21-32) mmol/L BUN 33 H (7-18) mg/dL Creatinine 1.9 H (0.70-1.30) mg/dL Est Cr Clr Drug Dosing 27.30 mL/min Estimated GFR (MDRD) 34 L (>60) BUN/Creatinine Ratio 17.4 (9-20) Glucose 286 H D (80-116) mg/dL Lactic Acid 1.0 (0.4-2.0) mmol/L Calcium 9.1 (8.6-10.2) mg/dL Total Bilirubin 0.6 (0.1-1.3) mg/dL AST 14 D (5-25) IU/L ALT 12 D (12-36) U/L Alkaline Phosphatase 89 (56-112) IU/L Total Protein 7.1 (6.0-8.0) g/dL Albumin 3.5 (3.2-4.6) g/dL Globulin 3.6 g/dL Albumin/Globulin Ratio 1.0 Amylase 43 (25-115) U/L Urine Color (YELLOW) Urine Appearance (CLEAR) Urine pH (5.0-6.5) Ur Specific [place] (1.010-1.025) Urine Protein (NEGATIVE) mg/dL Urine Glucose (UA) (NORMAL) mg/dL Urine Ketones (NEGATIVE) mg/dL Urine Occult Blood (NEGATIVE) Urine Nitrite (NEGATIVE) Urine Bilirubin (NEGATIVE) Urine Urobilinogen (NEGATIVE) mg/dL Ur Leukocyte Esterase (NEGATIVE) Urine RBC (0-5) Urine WBC (0-5) Ur Squamous Epith Cells (NS,R,O) Urine Bacteria (NS) 06/09/19 Range/Units 16:47 WBC (4.5-12.0) X10-3/uL RBC (4.30-5.75) x10(6)uL Hgb (13.5-17.8) g/dL Hct (30.0-51.3) % MCV (80-96) fL MCH (27.7-33.6) pg MCHC (32.2-35.4) g/dL RDW (11.5-15.5) % Plt Count (125-369) X10(3)uL MPV (7.4-10.4) fL Neut % (Auto) (46-82) % Lymph % (Auto) (13-37) % [place] % (Auto) (4-12) % Eos % (Auto) (1.0-5.0) % Baso % (Auto) (0-2) % Neut # (Auto) (1.6-8.3) # Lymph # (Auto) (0.6-5.0) # [place] # (Auto) (0.0-1.3) # Eos # (Auto) (0.0-0.8) # Baso # (Auto) (0.0-0.2) # Sodium (135-145) mmol/L Potassium (3.5-5.3) mmol/L Chloride (100-110) mmol/L Carbon Dioxide (21-32) mmol/L BUN (7-18) mg/dL Creatinine (0.70-1.30) mg/dL Est Cr Clr Drug Dosing mL/min Estimated GFR (MDRD) (>60) BUN/Creatinine Ratio (9-20) Glucose (80-116) mg/dL Lactic Acid (0.4-2.0) mmol/L Calcium (8.6-10.2) mg/dL Total Bilirubin (0.1-1.3) mg/dL AST (5-25) IU/L ALT (12-36) U/L Alkaline Phosphatase (56-112) IU/L Total Protein (6.0-8.0) g/dL Albumin (3.2-4.6) g/dL Globulin g/dL Albumin/Globulin Ratio Amylase (25-115) U/L Urine Color Yellow (YELLOW) Urine Appearance Clear (CLEAR) Urine pH 6.0 (5.0-6.5) Ur Specific [place] 1.020 (1.010-1.025) Urine Protein 30 H (NEGATIVE) mg/dL Urine Glucose (UA) 50 H (NORMAL) mg/dL Urine Ketones Negative (NEGATIVE) mg/dL Urine Occult Blood Negative (NEGATIVE) Urine Nitrite Negative (NEGATIVE) Urine Bilirubin Negative (NEGATIVE) Urine Urobilinogen Normal (NEGATIVE) mg/dL Ur Leukocyte Esterase Negative (NEGATIVE) Urine RBC 0-5 (0-5) Urine WBC 0-5 (0-5) Ur Squamous Epith Cells Occasional (NS,R,O) Urine Bacteria Few H (NS) Meds: Medications Generic Name Dose Route Start Last Admin Trade Name Freq PRN Reason Stop Dose Admin Dextrose/Lactated Ringer's 2,000 mls @ 999 mls/hr 06/09/19 17:45 06/09/19 17: 56 Dextrose 5%-Lactated Ringers IV 999 mls/hr ASDIRECTED JAVON Administration Sodium Chloride 10 ml 06/09/19 17:33 06/09/19 17:57 Saline Flush FLUSH 10 ml ASDIRECTED PRN Administration Keep Vein Open Discontinued Medications Generic Name Dose Route Start Last Admin Trade Name Freq PRN Reason Stop Dose Admin Hydrocodone Bitart/Acetaminophen 1 tab 06/09/19 17:33 06/09/19 17:39 [place] 325-5 Mg PO 06/09/19 17:34 1 tab ONETIME ONE Administration Departure - Departure Time of Disposition: 19:51 Disposition: Home, Self-Care 01 Condition: Fair Clinical Impression: Abdominal pain Qualifiers: Abdominal location: generalized Qualified Code(s): R10.84 - Generalized abdominal pain - Discharge Information *PRESCRIPTION DRUG MONITORING PROGRAM REVIEWED*: Not Applicable *COPY OF PRESCRIPTION DRUG MONITORING REPORT IN PATIENT [place]: Not Applicable Referrals: Brandyn Freire MD [Primary Care Provider] - Forms: ED Department Discharge Additional Instructions: Follw up as planned. You had a pain pill at 6 pm you may have another at 10 pm Sepsis Event Note - Evaluation Sepsis Screening Result: No Definite Risk - Focused Exam Vital Signs: Vital Signs Temp Pulse Resp BP Pulse Ox 06/09/19 16:00 36.3 C 64 18 115/45 L 97 Date Exam was Performed: 06/09/19 Time Exam was Performed: 19:51 - Problem List & Annotations (1) Abdominal pain SNOMED Code(s): 72964674 Code(s): R10.9 - UNSPECIFIED ABDOMINAL PAIN Status: Acute Current Visit: Yes Annotation/Comment:: Abdominal pain related to Gi malignancies, without clinical evidence of infection, bleeding or obstruction. He is clinically improved. He did experience some angina near discharge, improved with Nitrostat SL. Qualifiers: Abdominal location: generalized Qualified Code(s): R10.84 - Generalized abdominal pain - Problem List Review Problem List Initiated/Reviewed/Updated: Yes - My Orders Last 24 Hours: My Active Orders 06/09/19 17:33 Sodium Chloride 0.9% [Saline Flush] 10 ml FLUSH ASDIRECTED PRN Peripheral IV Insertion Adult [OM.PC] Routine 06/09/19 17:45 Dextrose 5%-Lactated Ringers 2,000 ml IV ASDIRECTED - Assessment/Plan Last 24 Hours: My Active Orders 06/09/19 17:33 Sodium Chloride 0.9% [Saline Flush] 10 ml FLUSH ASDIRECTED PRN Peripheral IV Insertion Adult [OM.PC] Routine 06/09/19 17:45 Dextrose 5%-Lactated Ringers 2,000 ml IV ASDIRECTED Plan: Follow up with PCP.
[2019-06-09 20:11] VITALS: BP 136/75; PULSE 80
== END 2019-06-09 20:00 | disposition home or self-care (01) ==
LOC: FB.ED 16:00
DX: R10.10 Upper abdominal pain, unspecified (principal); I25.10 Atherosclerotic heart disease of native coronary artery without angina pectoris; I50.9 Heart failure, unspecified; I11.0 Hypertensive heart disease with heart failure; I25.2 Old myocardial infarction; J44.9 Chronic obstructive pulmonary disease, unspecified; E11.9 Type 2 diabetes mellitus without complications; Z88.5 Allergy status to narcotic agent; Z88.0 Allergy status to penicillin; Z88.2 Allergy status to sulfonamides; Z79.899 Other long term (current) drug therapy; Z85.07 Personal history of malignant neoplasm of pancreas; Z85.038 Personal history of other malignant neoplasm of large intestine
CPT/HCPCS: 36415; 80053; 81001; 82150; 83605; 85025; 96360; 96361; 99283; 99284; A9270; J7121

== ENCOUNTER 2019-06-10 | Observation (INO) | payer MEDICARE, OTHER ==
[2019-06-10] MEDS ORDERED: Sodium Chloride 0.9% 10 ML Syringe FLUSH PRN (00:19)
[2019-06-10] MEDS: Sodium Chloride 0.9% 1,000 ML IV SCH ×4 (00:20→20:30)
--- NOTE | 2019-06-10 00:25 | EDM.PDOC ---
ED HPI GENERAL MEDICAL PROBLEM - General Chief Complaint: General Stated Complaint: Vomiting, Abd Pain Time Seen by Provider: 06/10/19 00:05 Source of Information: Reports: Patient, Family, Old Records History Limitations: Reports: No Limitations - History of Present Illness INITIAL COMMENTS - FREE TEXT/NARRATIVE: Scott returns to [facility] ED with recurrent emesis at home, abdominal pain, and malaise. He was seen earlier at the ED for pain managment and IV rehydration, having refused diagnostic imaging. He now consents to imaging to further clarify current GI issues. There is no fever, chills, sweats, diarrhea or voiding sxs. He had emesis x 2 of gastric appearing fluid. His pain improved upon arrrival to the ED. His daughter is in attendance. - Related Data Allergies Allergy/AdvReac Type Severity Reaction Status Date / Time hydromorphone [From Dilaudid] Allergy Lethargy Verified 06/09/19 16:59 penicillin Allergy Cannot Verified 06/09/19 16:59 Remember Sulfa (Sulfonamide Allergy Cannot Verified 06/09/19 16:59 Antibiotics) Remember Home Meds: Home Meds Nitroglycerin 0.4 mg SL Q5M PRN 08/18/16 [History] Oxazepam 15 mg PO BEDTIME 08/18/16 [History] Cholecalciferol (Vitamin D3) [Vitamin D3] 25 mg PO DAILY 06/09/19 [History] Furosemide 80 mg PO DAILY 06/09/19 [History] Hydrocodone/Acetaminophen [Hydrocodon-Acetaminophen 5-325] 1 each PO Q6HR PRN [History] Omeprazole 20 mg PO DAILY 06/09/19 [History] atenoloL [Tenormin] 100 mg PO DAILY 06/09/19 [History] fentaNYL [Duragesic] 12 mcg TOP Q72H 06/09/19 [History] glyBURIDE [Micronase] 5 mg PO BID 06/09/19 [History] guaiFENesin/Codeine Phosphate [Guaiatussin AC Liquid] 5 ml PO Q4H PRN 06/09/19 [ History] Past Medical History HEENT History: Reports: Impaired Vision Cardiovascular History: Reports: CAD, Heart Failure, High Cholesterol, Hypertension, [place], SOB on Exertion Respiratory History: Reports: COPD, Pneumonia, Recurrent, SOB Gastrointestinal History: Reports: Chronic Diarrhea, Hemorrhoids Genitourinary History: Reports: Prostate Disorder, Renal Calculus Musculoskeletal History: Reports: Amputation, RA Neurological History: Reports: None Psychiatric History: Reports: Anxiety Endocrine/Metabolic History: Reports: Diabetes, Type II Oncologic (Cancer) History: Reports: Colon, Pancreatic Dermatologic History: Reports: Seborrheic Dermatitis - Infectious Disease History Infectious Disease History: Reports: Chicken Pox, Measles, Mumps - Past Surgical History HEENT Surgical History: Reports: Cataract Surgery Male Surgical History: Reports: TURP-Transurethral Resection of Prostate Neurological Surgical History: Reports: None Musculoskeletal Surgical History: Reports: Amputation Dermatological Surgical History: Reports: Skin Biopsy Social & Family History - Family History Family Medical History: Noncontributory - Caffeine Use Caffeine Use: Reports: Coffee, Tea Other Caffeine Use: 2 cups a day ED ROS GENERAL - Review of Systems Review Of Systems: Comprehensive ROS is negative, except as noted in HPI. ED EXAM, GENERAL - Physical Exam Exam: See Below Exam Limited By: No Limitations General Appearance: Alert, WD/WN, Anxious, Mild Distress Head: Normocephalic Neck: Normal Inspection Respiratory/Chest: Lungs Clear Cardiovascular: Regular Rate, Rhythm, No Edema, No JVD, No Murmur GI/Abdominal: Normal Bowel Sounds, Soft, Non-Tender, No Organomegaly, No Distention, No Mass (Male) Exam: Deferred Rectal (Males) Exam: Deferred Back Exam: Normal Inspection Extremities: Normal Inspection Neurological: Alert, Oriented, CN II-XII Intact, Normal Cognition, No Motor/ Sensory Deficits Psychiatric: Normal Affect, Anxious Skin Exam: Warm, Dry, Intact Lymphatic: No Adenopathy Course - Vital Signs Text/Narrative:: Following assessment, Scott underwent an Abd-Pelvic CT wo contrast, which revealed a small bowel obstruction at the level of the ileocecal valve, in addition to distention of the pancreatric duct. He will be admitted to Observation. - Orders/Labs/Meds Orders: Active Orders 24 hr Category Date Time Status Abdomen Pelvis wo Cont [CT] Stat Exams 06/10/19 00:19 Taken Sodium Chloride 0.9% [Normal Saline] 1,000 ml Med 06/10/19 00:30 Active IV ASDIRECTED Sodium Chloride 0.9% [Saline Flush] Med 06/10/19 00:19 Active 10 ml FLUSH ASDIRECTED PRN Peripheral IV Insertion Adult [OM.PC] Routine Oth 06/10/19 00:19 Ordered Medication Orders Sodium Chloride (Normal Saline) 1,000 mls @ 150 mls/hr IV ASDIRECTED JAVON Last Admin: 06/10/19 00:20 Dose: 150 mls/hr Sodium Chloride (Saline Flush) 10 ml FLUSH ASDIRECTED PRN PRN Reason: Keep Vein Open Last Admin: 06/10/19 00:20 Dose: 10 ml Labs: Laboratory Tests 06/10/19 06/10/19 Range/Units 00:27 00:27 WBC 11.7 (4.5-12.0) X10-3/uL RBC 4.66 (4.30-5.75) x10(6)uL Hgb 13.8 (13.5-17.8) g/dL Hct 42.4 (30.0-51.3) % MCV 91.1 (80-96) fL MCH 29.7 (27.7-33.6) pg MCHC 32.6 (32.2-35.4) g/dL RDW 14.9 (11.5-15.5) % Plt Count 175 (125-369) X10(3)uL MPV 9.8 (7.4-10.4) fL Add Manual Diff Yes Neutrophils % (Manual) 92 H (46-82) % Band Neutrophils % 1 (0-6) % Lymphocytes % (Manual) 5 L (13-37) % Monocytes % (Manual) 1 L (4-12) % Eosinophils % (Manual) 1 (0-5) % Sodium 137 (135-145) mmol/L Potassium 4.9 (3.5-5.3) mmol/L Chloride 100 (100-110) mmol/L Carbon Dioxide 31 (21-32) mmol/L BUN 34 H (7-18) mg/dL Creatinine 1.8 H (0.70-1.30) mg/dL Est Cr Clr Drug Dosing TNP Estimated GFR (MDRD) 36 L (>60) BUN/Creatinine Ratio 18.9 (9-20) Glucose 459 H* D (80-116) mg/dL Calcium 8.9 (8.6-10.2) mg/dL Meds: Medications Generic Name Dose Route Start Last Admin Trade Name Freq PRN Reason Stop Dose Admin Sodium Chloride 1,000 mls @ 150 mls/hr 06/10/19 00:30 06/10/19 00:20 Normal Saline IV 150 mls/hr ASDIRECTED JAVON Administration Sodium Chloride 10 ml 06/10/19 00:19 06/10/19 00:20 Saline Flush FLUSH 10 ml ASDIRECTED PRN Administration Keep Vein Open Discontinued Medications Generic Name Dose Route Start Last Admin Trade Name Freq PRN Reason Stop Dose Admin Insulin Human Regular 1 unit 06/10/19 01:25 06/10/19 01:10 Humulin R IV 06/10/19 01:26 10 units ONETIME ONE Administration Departure - Departure Time of Disposition: 02:23 Disposition: Refer to Observation Condition: Poor Clinical Impression: Small bowel obstruction - Discharge Information *PRESCRIPTION DRUG MONITORING PROGRAM REVIEWED*: Not Applicable *COPY OF PRESCRIPTION DRUG MONITORING REPORT IN PATIENT [place]: Not Applicable Referrals: Brandyn Freire MD [Primary Care Provider] - Forms: ED Department Discharge Sepsis Event Note - Focused Exam Date Exam was Performed: 06/10/19 Time Exam was Performed: :20 - Problem List & Annotations (1) Colon adenocarcinoma SNOMED Code(s): 606308612 Code(s): C18.9 - MALIGNANT NEOPLASM OF COLON, UNSPECIFIED Status: Acute Current Visit: No Annotation/Comment:: admit to observation. (2) Pancreatic cancer SNOMED Code(s): 696584510 Code(s): C25.9 - MALIGNANT NEOPLASM OF PANCREAS, UNSPECIFIED Status: Acute Current Visit: No Annotation/Comment:: admit to observation. Qualifiers: Pancreatic malignancy location: unspecified Qualified Code(s): C25.9 - Malignant neoplasm of pancreas, unspecified (3) Small bowel obstruction SNOMED Code(s): 002075848 Code(s): K56.609 - UNSP INTESTNL OBST, UNSP TO PARTIAL VERSUS COMPLETE OBST Status: Acute Current Visit: Yes Annotation/Comment:: admit to observation, general surgery to see in am. - Problem List Review Problem List Initiated/Reviewed/Updated: Yes - My Orders Last 24 Hours: My Active Orders 06/10/19 00:19 Abdomen Pelvis wo Cont [CT] Stat Sodium Chloride 0.9% [Saline Flush] 10 ml FLUSH ASDIRECTED PRN Peripheral IV Insertion Adult [OM.PC] Routine 06/10/19 00:30 Sodium Chloride 0.9% [Normal Saline] 1,000 ml IV ASDIRECTED - Assessment/Plan Last 24 Hours: My Active Orders 06/10/19 00:19 Abdomen Pelvis wo Cont [CT] Stat Sodium Chloride 0.9% [Saline Flush] 10 ml FLUSH ASDIRECTED PRN Peripheral IV Insertion Adult [OM.PC] Routine 06/10/19 00:30 Sodium Chloride 0.9% [Normal Saline] 1,000 ml IV ASDIRECTED Plan: admit to Observation, hospitalist to see in am.
[2019-06-10] MEDS ORDERED: Insulin Regular, Human 100 Units/ML 3 ML Vial IV ONE (01:25)
[2019-06-10] MEDS ORDERED: HYDROmorphone 2 MG/ML SDV IVPUSH PRN (09:57)
[2019-06-10] MEDS ORDERED: Nitroglycerin 0.4 MG Tab.SL SL PRN (10:00)
[2019-06-10] MEDS ORDERED: fentaNYL 25 MCG/HR Transdermal Patch TRDERM SCH (10:15)
[2019-06-10] MEDS ORDERED: Ketorolac 15 MG/ML SDV IVPUSH PRN (10:36)
--- NOTE | 2019-06-10 13:05 | HP ---
ADMISSION DATE: 06/10/2019 CHIEF COMPLAINT: Abdominal pain, suspect bowel obstruction. HISTORY OF PRESENT ILLNESS: Scott Payan is an 83-year-old male admitted through [facility] ER. Presented back in March with some vague, but problematic abdominal pain. CT revealed a measurably sized lesion in the mid to tail of the pancreas, and a definable lesion in the proximal cecum area. C antigen was greater than 50, and suspicion for cancer. Had been scheduled for an upper endoscopy and biopsy of his pancreatic lesion and colonoscopy, but deferred due to COVID testing and delay in nondiagnostic study. Scheduled for sometime in June. Increasing pains and vomiting. CT without contrast suggested bowel obstruction. He was admitted to the hospital for treatment and intervention. DAILY MEDICATIONS: Include: 1. Atenolol 100 mg 1 p.o. daily, blood pressure. 2. Vitamin D3 one p.o. daily, nutrition. 3. Fentanyl 12 mcg patch q.72 hours. 4. Furosemide 80 mg daily, edema, CHF. 5. Glyburide 5 mg 1 p.o. daily, diabetes. 6. Hydrocodone 5/325 one q.i.d. p.r.n. for pain. 7. Prilosec 20 mg 1 p.o. daily, GERD. 8. P.r.n. nitroglycerin. 9. Oxazepam 15 mg at bedtime, sleep enhancement. ALLERGIES: Hydromorphone due to lethargy, penicillin, and sulfa. PAST MEDICAL HISTORY: Significant for longstanding coronary artery disease, congestive heart failure, and hypertension. PAST SURGICAL HISTORY: He has had a previous bilateral cataract surgery, transurethral prostate resection for benign disease. No other major operative procedures, hospitalizations, unusual childhood diseases, major injuries, or fractures. SOCIAL HISTORY: Lives alone, but with the assistance of family. Retired. Previous smoker. No alcohol. No illicit drug use. FAMILY HISTORY: Negative for early heart disease, diabetes mellitus, or inheritable cancer. REVIEW OF SYSTEMS: CONSTITUTIONAL: Feeling poorly. EYES: Sees well. EARS: Difficulty in crowds. Poor hearing. OROPHARYNX: Eats well generally. GI: Please see HPI. : Please see HPI. CV: No chest pain. No chest pain this morning. RESPIRATORY: Chronic cough. PHYSICAL EXAMINATION: VITAL SIGNS: 66.8 kg, 36.7, 166/83, 18, 95% on room air, pulse 80. GENERAL: Appears comfortable. Pain 4/10. Speech is fluent. Thought content appropriate. Oriented. HEENT: Funduscopic benign. Bright TMs. Clear nasal discharge. Mouth and oropharynx clear, dry. NECK: Benign. Thyroid small. No adenopathy. No JVD. No carotid bruits. CHEST: Decreased breath sounds. Coarse rhonchi. HEART: Sounds distant with occasional ectopy. ABDOMEN: Benign. No hepatomegaly. It is a little tender diffusely in lower abdomen with mild distention. Decreased bowel sounds. GENITOURINARY: Normal male genitalia. RECTAL: Deferred. EXTREMITIES: Unremarkable and well perfused. NEUROMUSCULAR: Intact. LABORATORY STUDIES: On admission, white count 11,100, repeat 10,300; hemoglobin 13.8 and 13.3; electrolytes satisfactory; BUN 34 and 32; creatinine 1.8 and 1.5; GFR 36 and 45; glucose elevated at 495, 319, and 219.. ASSESSMENT: Suspect bowel obstruction, major pathology, pancreas and colon cancer. PLAN: Bowel rest, pain control, intervention, and treatment. Surgical consultation to be considered. /[id number] DELICIA/FLOYD NGUYEN
[2019-06-11] MEDS: Sodium Chloride 0.9% 1,000 ML IV SCH (03:08)
[2019-06-11] MEDS ORDERED: Sodium Chloride 0.9% 1,000 ML IV SCH (09:30)
--- NOTE | 2019-06-11 10:58 | PN ---
DATE SEEN: 06/11/2019 SUBJECTIVE: Scott Payan is an 83-year-old male, admitted with small bowel obstruction. Radiographically CT proven. Had a good day yesterday. Pain effervescent, passing gas throughout the day, had a good quality, incontinence stool today. Feeling much better. LABORATORY STUDIES: Not indicated. OBJECTIVE: GENERAL: Appears comfortable. NECK: Benign. Thyroid small. CHEST: Clear in all lung cornejo. HEART: No ectopy or murmur. ABDOMEN: Benign. ASSESSMENT: Resolving small bowel obstruction. PLAN: We will increase diet slowly, wean IV fluids if comfortable. Discharge home this evening. Expectation and plan. /[id number] DELICIA/FLOYD
[2019-06-11 17:28] VITALS: BP 168/79; PULSE 77
--- NOTE | 2019-06-11 19:01 | DISCH ---
DISCHARGE DATE: 06/11/2019 HISTORY OF PRESENT ILLNESS: Scott Payan is an 83-year-old male, admitted with complicated abdominal pain. CT revealed small bowel obstruction. Origin uncertain. Has undiagnosed suspicion for cancer of pancreas and colon. On admission, he was found to be in significant pain. He was placed on IV fluids, analgesics for pain, and bowel rest. GI system; awakened, began to pass flatus, had good quality of stool in the morning of 06/11/2019. Diet was advanced. Pain resolved. He is otherwise in good spirits. LABORATORY STUDIES: CT report noted, electrolytes were satisfactory. OBJECTIVE: VITAL SIGNS: 36.1, 168/79, 20, and 94. GENERAL: Appears comfortable in good spirits. NECK: Benign. Thyroid small. No JVD. CHEST: Clear in all lung cornejo. HEART: No ectopy or murmur. ABDOMEN: Perfectly benign. Good bowel sounds. ASSESSMENT: Small bowel obstruction, resolved. PLAN: Discharged home, care and intervention as appropriate. We will follow up on a timely basis. Endoscopic evaluation of the pancreas and colonoscopy have been deferred due to the COVID issues till middle or end of June. DISCHARGE MEDICATIONS: Please see med recon list. /[id number] DELICIA/FLOYD
== END 2019-06-11 18:15 | disposition home or self-care (01) ==
LOC: FB.ED → FB.MS 02:30
PROVIDERS: ADMIT Family Medicine; ATTEND Family Medicine
DX: K56.609 Unspecified intestinal obstruction, unspecified as to partial versus complete obstruction (principal); C18.9 Malignant neoplasm of colon, unspecified; C25.9 Malignant neoplasm of pancreas, unspecified; E78.00 Pure hypercholesterolemia, unspecified; I11.0 Hypertensive heart disease with heart failure; I50.9 Heart failure, unspecified; J44.9 Chronic obstructive pulmonary disease, unspecified; E11.9 Type 2 diabetes mellitus without complications; F41.9 Anxiety disorder, unspecified; Z88.0 Allergy status to penicillin; Z88.2 Allergy status to sulfonamides; Z88.6 Allergy status to analgesic agent; Z79.84 Long term (current) use of oral hypoglycemic drugs; Z87.891 Personal history of nicotine dependence
CPT/HCPCS: 36415; 74176; 80048; 82962; 85025; 85027; 99285; A9270; J1885; J7030; 96360; 96361; 96374; 99217; 99218; 99284; G0378; J1815-GY

== ENCOUNTER 2019-06-18 22:21 | Inpatient (IN) | payer MEDICARE, OTHER ==
[2019-06-18] MEDS ORDERED: HYDROmorphone 2 MG/ML SDV IVPUSH ONE ×2 (22:31→23:53)
[2019-06-18] MEDS ORDERED: Simethicone Drops 40 MG/0.6 ML 30 ML Bottle PO ONE (22:31)
[2019-06-18] MEDS ORDERED: Sodium Chloride 0.9% 1,000 ML IV SCH (22:45)
[2019-06-18] MEDS: Sodium Chloride 0.9% 10 ML Syringe FLUSH PRN (22:51)
[2019-06-18] MEDS ORDERED: Simethicone 80 MG Tab.Chew ONE (22:56)
[2019-06-18] MEDS: Simethicone 80 MG Tab.Chew PO SCH (23:06)
[2019-06-18] MEDS ORDERED: Ondansetron 4 MG/2 ML SDV IVPUSH ONE (23:22)
[2019-06-18] MEDS ORDERED: Naloxone 0.4 MG/ML SDV IVPUSH STA (23:40)
[2019-06-19] MEDS ORDERED: Metoclopramide 10 MG/2 ML SDV IV STA (00:23)
[2019-06-19] MEDS ORDERED: Ondansetron 4 MG/2 ML SDV IVPUSH ONE ×2 (00:23→00:58)
--- NOTE | 2019-06-19 00:39 | EDM.PDOC ---
ED HPI GENERAL MEDICAL PROBLEM - General Chief Complaint: Abdominal Pain Stated Complaint: Abdominal Pain Time Seen by Provider: 06/18/19 23:00 Source of Information: Reports: Patient History Limitations: Reports: No Limitations - History of Present Illness INITIAL COMMENTS - FREE TEXT/NARRATIVE: Patient presented to the ED because of increasing abdominal pain and nausea. 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 Endoscopy and biopsy will be done on July 14, 2019 due to the covid pandemic. His pain is treated with duragesic patch and norco which usually brings his abdominal pain down to a tolerable level but tonight it didn't. The pain is sharp and cramping, intermittent with associated nausea but no vomiting. He had a normal bowel movement yesterday. There is no urinary symptoms. No cough or cold,fever or chills. - Related Data Allergies Allergy/AdvReac Type Severity Reaction Status Date / Time hydromorphone [From Dilaudid] Allergy Lethargy Verified 06/18/19 23:18 penicillin Allergy Cannot Verified 06/18/19 23:18 Remember Sulfa (Sulfonamide Allergy Cannot Verified 06/18/19 23:18 Antibiotics) Remember Home Meds: Home Meds Nitroglycerin 0.4 mg SL Q5M PRN 08/18/16 [History] Oxazepam 15 mg PO BEDTIME 08/18/16 [History] Cholecalciferol (Vitamin D3) [Vitamin D3] 25 mg PO DAILY 06/09/19 [History] Omeprazole 20 mg PO DAILY 06/09/19 [History] atenoloL [Tenormin] 100 mg PO BEDTIME 06/09/19 [History] fentaNYL [Duragesic] 12 mcg TOP Q72H 06/09/19 [History] glyBURIDE [Micronase] 10 mg PO BID 06/09/19 [History] Acetaminophen [Tylenol] 325 mg PO Q6H PRN 06/10/19 [History] Ascorbate Calcium [Vitamin C] 500 mg PO DAILY 06/10/19 [History] Aspirin [Halfprin] 81 mg PO DAILY 06/10/19 [History] Clopidogrel [Plavix] 75 mg PO DAILY 06/10/19 [History] Furosemide [Lasix] 40 mg PO DAILY 06/10/19 [History] LORazepam [Lorazepam] 0.5 mg PO DAILY PRN 06/10/19 [History] Loperamide [Imodium] 2 mg PO ASDIRECTED PRN 06/10/19 [History] Losartan [Cozaar] 50 mg PO DAILY 06/10/19 [History] [place]-3/DHA/Epa/Fish Oil [[place] 3 500 Softgel] 520 mg PO DAILY 06/10/19 [History ] Simethicone [Anti-Gas] 180 mg PO ASDIRECTED PRN 06/10/19 [History] Simvastatin [Zocor] 10 mg PO BEDTIME 06/10/19 [History] SitaGLIPtin [Januvia] 50 mg PO DAILY 06/10/19 [History] fentaNYL [Duragesic] 25 mcg TRDERM Q72H patch 06/11/19 [Rx] Albuterol Sulfate [Proair Hfa] 2 puff INH Q6H PRN 06/19/19 [History] Isosorbide Mononitrate [Imdur] 30 mg PO BEDTIME 06/19/19 [History] Isosorbide Mononitrate [Imdur] 60 mg PO DAILY 06/19/19 [History] Past Medical History HEENT History: Reports: Impaired Vision Cardiovascular History: Reports: CAD, Heart Failure, High Cholesterol, Hypertension, [place], SOB on Exertion Respiratory History: Reports: COPD, Pneumonia, Recurrent, SOB Gastrointestinal History: Reports: Chronic Diarrhea, Hemorrhoids Genitourinary History: Reports: Prostate Disorder, Renal Calculus Musculoskeletal History: Reports: Amputation, RA Neurological History: Reports: None Psychiatric History: Reports: Anxiety Endocrine/Metabolic History: Reports: Diabetes, Type II Oncologic (Cancer) History: Reports: Colon, Pancreatic Dermatologic History: Reports: Seborrheic Dermatitis - Infectious Disease History Infectious Disease History: Reports: Chicken Pox, Measles, Mumps - Past Surgical History HEENT Surgical History: Reports: Cataract Surgery Male Surgical History: Reports: TURP-Transurethral Resection of Prostate Musculoskeletal Surgical History: Reports: Amputation Dermatological Surgical History: Reports: Skin Biopsy Social & Family History - Family History Family Medical History: Noncontributory - Caffeine Use Caffeine Use: Reports: Coffee Other Caffeine Use: one or two cups daily ED ROS GENERAL - Review of Systems Review Of Systems: See Below Constitutional: Reports: No Symptoms HEENT: Reports: No Symptoms Respiratory: Reports: No Symptoms Cardiovascular: Reports: No Symptoms Endocrine: Reports: No Symptoms GI/Abdominal: Reports: Abdominal Pain, Nausea, Vomiting Musculoskeletal: Reports: No Symptoms Skin: Reports: No Symptoms Neurological: Reports: No Symptoms Psychiatric: Reports: No Symptoms Hematologic/Lymphatic: Reports: No Symptoms ED EXAM, GI/ABD - Physical Exam Exam: See Below Exam Limited By: No Limitations General Appearance: Alert, No Apparent Distress Ears: Normal External Exam, Normal Canal Nose: Normal Inspection, Normal Mucosa Throat/Mouth: Normal Inspection, Normal Lips Head: Atraumatic, Normocephalic Neck: Normal Inspection, Supple Respiratory/Chest: No Respiratory Distress, Lungs Clear Cardiovascular: Normal Peripheral Pulses, Regular Rate, Rhythm, No Edema GI/Abdominal Exam: Normal Bowel Sounds, Soft, No Organomegaly, Other ( tenderness over the RLQ and suprapubic acrea) Back Exam: Normal Inspection, Full Range of Motion Extremities: Normal Inspection, Normal Range of Motion, Non-Tender, No Pedal Edema, Normal Capillary Refill Neurological: Alert, Oriented, CN II-XII Intact, Normal Cognition Course - Vital Signs Text/Narrative:: Labs reviewed and discussed with patient and verbalized understanding NS 1 L bolus dilaudid 1 mg x2 doses narcan 0.2 mg iv to revere the opioid because he became drowsy and feels dizzy zofran 4 mg IV x1 reglan 5 mg IV x1 patient refused to have any xray and ct scan done tonight Last Recorded V/S: Last Vital Signs Temp 36.6 C 06/18/19 22:55 Pulse 69 06/18/19 22:55 Resp 20 06/18/19 22:55 BP 143/57 H 06/18/19 22:55 Pulse Ox 91 L 06/18/19 22:55 - Orders/Labs/Meds Orders: Active Orders 24 hr Category Date Time Status Abdomen 2V AP Flat Upright [CR] Stat Exams 06/18/19 22:32 Ordered UA W/MICROSCOPIC [URIN] Stat Lab 06/18/19 22:30 Ordered Simethicone Med 06/19/19 09:00 Active 80 mg PO TIDPC Sodium Chloride 0.9% [Normal Saline] 1,000 ml Med 06/18/19 22:45 Active IV ASDIRECTED Sodium Chloride 0.9% [Normal Saline] 1,000 ml Med 06/19/19 00:30 Active IV ASDIRECTED Sodium Chloride 0.9% [Saline Flush] Med 06/18/19 22:30 Active 10 ml FLUSH ASDIRECTED PRN Saline Lock Insert [OM.PC] Routine Oth 06/18/19 22:30 Ordered Medication Orders Sodium Chloride (Normal Saline) 1,000 mls @ 999 mls/hr IV ASDIRECTED JAVON Last Admin: 06/18/19 23:00 Dose: 999 mls/hr Sodium Chloride (Normal Saline) 1,000 mls @ 100 mls/hr IV ASDIRECTED JAVON Simethicone (Simethicone) 80 mg PO TIDPC JAVON Last Admin: 06/18/19 23:06 Dose: 80 mg Sodium Chloride (Saline Flush) 10 ml FLUSH ASDIRECTED PRN PRN Reason: Keep Vein Open Last Admin: 06/18/19 22:51 Dose: 10 ml Labs: Laboratory Tests 06/18/19 06/18/19 06/18/19 Range/Units 22:36 22:36 22:36 WBC 10.0 (4.5-12.0) X10-3/uL RBC 4.80 (4.30-5.75) x10(6)uL Hgb 14.3 (13.5-17.8) g/dL Hct 43.3 (30.0-51.3) % MCV 90.2 (80-96) fL MCH 29.8 (27.7-33.6) pg MCHC 33.1 (32.2-35.4) g/dL RDW 14.9 (11.5-15.5) % Plt Count 179 (125-369) X10(3)uL MPV 8.9 (7.4-10.4) fL Neut % (Auto) 81.4 (46-82) % Lymph % (Auto) 8.3 L (13-37) % Stephens % (Auto) 6.3 (4-12) % Eos % (Auto) 3 (1.0-5.0) % Baso % (Auto) 1 (0-2) % Neut # (Auto) 8.1 (1.6-8.3) # Lymph # (Auto) 0.8 (0.6-5.0) # Stephens # (Auto) 0.6 (0.0-1.3) # Eos # (Auto) 0.3 (0.0-0.8) # Baso # (Auto) 0.1 (0.0-0.2) # Sodium 139 (135-145) mmol/L Potassium 4.4 (3.5-5.3) mmol/L Chloride 100 (100-110) mmol/L Carbon Dioxide 33 H (21-32) mmol/L BUN 24 H (7-18) mg/dL Creatinine 1.8 H (0.70-1.30) mg/dL Est Cr Clr Drug Dosing TNP Estimated GFR (MDRD) 36 L (>60) BUN/Creatinine Ratio 13.3 (9-20) Glucose 384 H (80-116) mg/dL Calcium 8.9 (8.6-10.2) mg/dL Total Bilirubin 0.4 (0.1-1.3) mg/dL AST 15 (5-25) IU/L ALT 16 D (12-36) U/L Alkaline Phosphatase 91 (56-112) IU/L Total Protein 7.4 (6.0-8.0) g/dL Albumin 3.6 (3.2-4.6) g/dL Globulin 3.8 g/dL Albumin/Globulin Ratio 1.0 Amylase 39 (25-115) U/L Lipase 263 (73-393) U/L Meds: Medications Generic Name Dose Route Start Last Admin Trade Name Freq PRN Reason Stop Dose Admin Sodium Chloride 1,000 mls @ 999 mls/hr 06/18/19 22:45 06/18/19 23:00 Normal Saline IV 999 mls/hr ASDIRECTED JAVON Administration Sodium Chloride 1,000 mls @ 100 mls/hr 06/19/19 00:30 Normal Saline IV ASDIRECTED JAVON Simethicone 80 mg 06/19/19 09:00 06/18/19 23:06 Simethicone PO 80 mg TIDPC JAVON Administration Sodium Chloride 10 ml 06/18/19 22:30 06/18/19 22:51 Saline Flush FLUSH 10 ml ASDIRECTED PRN Administration Keep Vein Open Discontinued Medications Generic Name Dose Route Start Last Admin Trade Name Freq PRN Reason Stop Dose Admin Hydromorphone HCl 2 mg 06/18/19 22:31 06/18/19 22:50 Dilaudid IVPUSH 06/18/19 22:32 2 mg ONETIME ONE Administration Hydromorphone HCl 1 mg 06/18/19 23:53 06/18/19 23:56 Dilaudid IVPUSH 06/18/19 23:54 1 mg ONETIME ONE Administration Metoclopramide HCl 5 mg 06/19/19 00:23 Reglan IV 06/19/19 00:24 NOW STA Naloxone HCl 0.2 mg 06/18/19 23:40 06/18/19 23:44 Narcan IVPUSH 06/18/19 23:41 0.2 mg NOW STA Administration Ondansetron HCl 4 mg 06/18/19 23:22 06/18/19 23:30 Zofran IVPUSH 06/18/19 23:23 4 mg ONETIME ONE Administration Ondansetron HCl 4 mg 06/19/19 00:23 Zofran IVPUSH 06/19/19 00:24 ONETIME ONE Simethicone 80 mg 06/18/19 22:31 06/18/19 23:11 Infants' Gas Relief PO 06/18/19 22:32 Not Given ONETIME ONE Simethicone Confirm 06/18/19 22:56 06/18/19 23:07 Simethicone Administered 06/18/19 22:57 Not Given Dose 80 mg .ROUTE .STK-MED ONE Departure - Departure Time of Disposition: 23:00 Disposition: Refer to Observation Condition: Good Clinical Impression: Abdominal pain Qualifiers: Abdominal location: generalized Qualified Code(s): R10.84 - Generalized abdominal pain - Discharge Information Referrals: Brandyn Freire MD [Primary Care Provider] - Forms: ED Department Discharge Sepsis Event Note - Evaluation Sepsis Screening Result: No Definite Risk - Focused Exam Vital Signs: Vital Signs Temp Pulse Resp BP Pulse Ox 06/18/19 22:55 36.6 C 69 20 143/57 H 91 L Date Exam was Performed: 06/19/19 Time Exam was Performed: 00:41 - My Orders Last 24 Hours: My Active Orders 06/18/19 22:30 UA W/MICROSCOPIC [URIN] Stat Sodium Chloride 0.9% [Saline Flush] 10 ml FLUSH ASDIRECTED PRN Saline Lock Insert [OM.PC] Routine 06/18/19 22:32 Abdomen 2V AP Flat Upright [CR] Stat 06/18/19 22:45 Sodium Chloride 0.9% [Normal Saline] 1,000 ml IV ASDIRECTED 06/19/19 00:30 Sodium Chloride 0.9% [Normal Saline] 1,000 ml IV ASDIRECTED 06/19/19 09:00 Simethicone 80 mg PO TIDPC - Assessment/Plan Last 24 Hours: My Active Orders 06/18/19 22:30 UA W/MICROSCOPIC [URIN] Stat Sodium Chloride 0.9% [Saline Flush] 10 ml FLUSH ASDIRECTED PRN Saline Lock Insert [OM.PC] Routine 06/18/19 22:32 Abdomen 2V AP Flat Upright [CR] Stat 06/18/19 22:45 Sodium Chloride 0.9% [Normal Saline] 1,000 ml IV ASDIRECTED 06/19/19 00:30 Sodium Chloride 0.9% [Normal Saline] 1,000 ml IV ASDIRECTED 06/19/19 09:00 Simethicone 80 mg PO TIDPC
[2019-06-19] MEDS ORDERED: Enoxaparin 30 MG/0.3 ML Syringe SUBCUT SCH (01:00)
[2019-06-19] MEDS: Sodium Chloride 0.9% 1,000 ML IV SCH ×3 (01:12→23:42)
[2019-06-19] MEDS: LORazepam 2 MG/ML SDV IVPUSH PRN ×2 (03:42→19:24)
[2019-06-19] MEDS ORDERED: Ondansetron 4 MG/2 ML SDV IVPUSH PRN (09:33)
[2019-06-19] MEDS: Simethicone 80 MG Tab.Chew PO SCH ×3 (09:46→19:15)
[2019-06-19] MEDS: HYDROmorphone 2 MG/ML SDV IVPUSH PRN (11:18)
[2019-06-19] MEDS ORDERED: Diatrizoate Meglumine/Diatrizoate Sodium 37% 30 ML Bottle PO ONE (12:12)
--- NOTE | 2019-06-19 13:44 | CT ---
INDICATION: Abnormal findings on CT of the abdomen and pelvis, history of pancreatic and colon CA. CT CHEST WITHOUT CONTRAST: Spiral 3.75 mm axial sections were obtained through the chest without contrast due to creatinine of 2.0. Calcifications are noted in brachiocephalic vessels, the arch of the aorta, descending aorta, and coronary arteries. The heart did not appear grossly enlarged. No pericardial effusion was seen. Relatively minimal mediastinal lymphadenopathy is noted which is nonspecific. No mediastinal mass was seen. A 9.2 mm well-defined rounded nodule is noted in the left upper lobe axial image #15. Several areas of focal ground-glass infiltration are noted in the superior segment of the right lower lobe beginning on axial image 36 through axial image 46. Additional ground-glass areas of infiltration are noted extending into the posterior basilar segment of the right lower lobe. A nodular density is seen anterior to the major fissure in the right upper lobe, axial image #47 which measured approximately 24 mm. This relatively low- density mass may represent a pseudotumor of the fissure - fluid collection that is loculated or possibly an abscess formation. Additional more tiny nodularity is noted in the right upper lobe on axial image 44. Additional nodularity and minimal infiltration is noted in the middle lobe just above the diaphragm on axial images 50 through 56. These changes in the basilar lung cornejo are new compared with 06/10/19 and subsequently are felt to be most likely to be on the basis of inflammatory disease rather than neoplasia. No gross consolidating pneumonia or significant effusion could be identified although there does appear to be some pleural reaction in the areas of subpulmonic infiltration most notable in the right lower lobe. IMPRESSION: 1. Findings are felt to be most compatible with areas of pneumonia and possibly focal abscess formation, followup is recommended to clearing. 2. ASHD/ASD. INDICATION: Diffuse abdominal pain. CT ABDOMEN AND PELVIS WITHOUT CONTRAST: Spiral 3.75 mm axial sections were obtained through the abdomen and pelvis without contrast with sagittal and coronal reconstructions 06/19/19 and compared with 06/10/19. Total exam DLP was 694.50 mGy-cm. Small gallstones were noted of small to moderate number, gallbladder was mildly distended, no wall thickening or pericholecystic fluid was seen. No liver lesions were identified. The spleen appeared normal except to note some very minimal fluid extending into the paracolic gutter below it which did not appear to be present to the same extent on the previous study - is slightly increased. There also appears to be a small amount of free fluid along the anterior aspect of the liver at the lung base which may represent a focal area of ascites appearing to be partially present on the previous study. There is a low-density abnormality at the tail of the pancreas which remains suspicious for other than benign disease. The common bile duct most likely is normal in caliber. However, at the pancreatic head there is a low-density area which was present previously and may represent a pancreatic cyst, possibly a pseudocyst but should be correlated clinically, other than benign disease is difficult to entirely exclude without IV contrast. The pancreas was otherwise unremarkable. The adrenal glands appeared normal. Renal cortical scarring is noted with several renal calculi suggested in the lower middle pole of the left kidney. A calculus is noted in the upper pole area of the right kidney which could actually be arterial calcification. There is also a calcification in the upper pole of the left kidney which could represent renal calcinosis. No significant obstructive nephropathy was identified. No definite retroperitoneal mass was otherwise suggested. Fairly extensive arterial calcifications were noted in the abdominal aorta, renal arteries, gastric and splenic arteries, superior mesenteric artery, inferior mesenteric artery, iliac and femoral arteries. Minimal calcification is noted in the prostate. Urinary bladder was grossly normal. A minimal amount of pelvic fluid present on the previous study is not visualized on today's exam. The appendix is not definitely visualized. There is, however, noted thickening of the wall of the cecum seen previously with dilatation of small bowel loops which appears to be more prominent on today 's examination compatible with a partial small bowel obstruction or possibly an early complete obstruction, since there is gas and stool in the more distant colon including the sigmoid and rectosigmoid and rectum. The obstructive process may be at the level of the terminal ileum and cecum - neoplastic process difficult to exclude in the cecum with this appearance, as previously. No evidence of free air was identified. There may be some thickening of the gastric antral wall which could be on the basis of peptic ulcer disease, but should be correlated clinically, it did not appear to be present previously, a contraction could also perhaps produce this appearance. No additional organomegaly, mass lesions or free fluid collections were identified in the abdomen or pelvis. No definite hernia is identified. Evidence of subcutaneous injection noted in the left upper pelvis area. IMPRESSION: 1. Increasing distention of small bowel loops which may be on the basis of a mechanically obstructive process at the level of the cecum - terminal ileum. There does appear to e loop of distal ileum that is normal in caliber suggesting that the obstruction lies in the distal small bowel - distal ileum. 2. Cholelithiasis. 3. ASD. 4. Renal calcinosis and renal scarring. 5. Bulbous area with low density at the tail of the pancreas raising question of neoplasia - correlate clinically - MRI may be helpful for further evaluation. 6. Thickening of the wall of the cecum could be on the basis of neoplastic process and should be correlated clinically. 7. Sclerotic lesion in the acetabular area on the right is stable - may represent a bone infarct. 8. Low-density abnormality in the area of the head of the pancreas of questionable significance, could represent a focal dilatation of the pancreatic duct - MRI may be helpful in that regard as well as the tail of the pancreas. 9. Increase in minimal fluid along the anterior lateral aspect of the right lobe of the liver and inferior to the spleen in the left paracolic gutter - minimal areas of fluid, etiology indeterminate. Report was called to the voice mail of Dr. Bowen at approximately [address] [facility]
[2019-06-19] MEDS: cefTRIAXone 1 GM Vial IVPUSH SCH (16:26)
[2019-06-19] MEDS: Azithromycin 500 MG in Sodium Chloride 0.9% 250 ML IV SCH (16:31)
--- NOTE | 2019-06-19 18:50 | PCM.HP.2 ---
H&P History of Present Illness - General Date of Service: 06/19/19 Admit Problem/Dx: Admission Diagnosis/Problem Admission Diagnosis/Problem Abdominal pain Source of Information: Patient, Family, Provider - History of Present Illness Initial Comments - Free Text/Narative: ER NOTE: Patient presented to the ED because of increasing abdominal pain and nausea. 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 Endoscopy and biopsy will be done on July 14, 2019 due to the covid pandemic. His pain is treated with Duragesic patch and [place] which usually brings his abdominal pain down to a tolerable level but tonight it didn't. The pain is sharp and cramping, intermittent with associated nausea but no vomiting. He had a normal bowel movement yesterday. There is no urinary symptoms. No cough or cold,fever or chills Scott this morning developed cough, which he usually has in the morning due to his COPD but daughter Екатерина states that he was not coughing when she brought him into the ER last night. He states that he didn't sleep very well last night and is tired this morning. Complaining of dry mouth. Denies any chest pain, shortness of breath or wheezing. No sinus symptoms. Passing gas, nausea but no vomiting or diarrhea. Pain located in RUQ is the worst area but diffuse. No trouble urinating though has not given a sample yet. Family had contacted Hospice for consult but has not met with them yet. Patient does not want any surgeries, is willing to try bowel rest and pain control. Has living will and desires to be a DNR/DNI. - Related Data Allergies/Adverse Reactions: Allergies Allergy/AdvReac Type Severity Reaction Status Date / Time hydromorphone [From Dilaudid] Allergy Lethargy Verified 06/18/19 23:18 penicillin Allergy Cannot Verified 06/18/19 23:18 Remember Sulfa (Sulfonamide Allergy Cannot Verified 06/18/19 23:18 Antibiotics) Remember Home Medications: Home Meds Nitroglycerin 0.4 mg SL Q5M PRN 08/18/16 [History] Oxazepam 15 mg PO BEDTIME 08/18/16 [History] atenoloL [Tenormin] 100 mg PO BEDTIME 06/09/19 [History] fentaNYL [Duragesic] 2 patch TOP Q72H 06/09/19 [History] glyBURIDE [Micronase] 10 mg PO BID 06/09/19 [History] Acetaminophen [Tylenol] 650 mg PO Q6H PRN 06/10/19 [History] Ascorbate Calcium [Vitamin C] 500 mg PO DAILY 06/10/19 [History] Aspirin [Halfprin] 81 mg PO DAILY 06/10/19 [History] Clopidogrel [Plavix] 75 mg PO DAILY 06/10/19 [History] Furosemide [Lasix] 40 mg PO DAILY 06/10/19 [History] LORazepam [Lorazepam] 0.5 mg PO DAILY PRN 06/10/19 [History] Loperamide [Imodium] 2 mg PO ASDIRECTED PRN 06/10/19 [History] Losartan [Cozaar] 50 mg PO DAILY 06/10/19 [History] [place]-3/DHA/Epa/Fish Oil [[place] 3 500 Softgel] 520 mg PO DAILY 06/10/19 [History ] Simethicone [Anti-Gas] 180 mg PO DAILY 06/10/19 [History] Simvastatin [Zocor] 10 mg PO BEDTIME 06/10/19 [History] SitaGLIPtin [Januvia] 50 mg PO DAILY 06/10/19 [History] .Calcium Carbimide Citrated 2 - 3 tab CHEW DAILY PRN 06/19/19 [History] Acetaminophen/HYDROcodone [[place] 325-5 MG] 1 - 2 tab PO Q6H PRN 06/19/19 [ History] Albuterol Sulfate [Proair Hfa] 2 puff INH Q6H PRN 06/19/19 [History] Cholecalciferol (Vitamin D3) [Vitamin D3] 1,000 unit PO DAILY 06/19/19 [History] Isosorbide Mononitrate [Imdur] 30 mg PO BEDTIME 06/19/19 [History] Isosorbide Mononitrate [Imdur] 60 mg PO DAILY 06/19/19 [History] Ranitidine HCl [Ranitidine] 300 mg PO BID 06/19/19 [History] Past Medical History HEENT History: Reports: Impaired Vision Cardiovascular History: Reports: CAD, Heart Failure, High Cholesterol, Hypertension, CA, SOB on Exertion Respiratory History: Reports: COPD, Pneumonia, Recurrent, SOB Gastrointestinal History: Reports: Chronic Diarrhea, Hemorrhoids Genitourinary History: Reports: Prostate Disorder, Renal Calculus Musculoskeletal History: Reports: Amputation, RA Neurological History: Reports: None Psychiatric History: Reports: Anxiety Endocrine/Metabolic History: Reports: Diabetes, Type II Oncologic (Cancer) History: Reports: Colon, Pancreatic Dermatologic History: Reports: Seborrheic Dermatitis - Infectious Disease History Infectious Disease History: Reports: Chicken Pox, Measles, Mumps - Past Surgical History Head Surgeries/Procedures: Reports: None HEENT Surgical History: Reports: Cataract Surgery Cardiovascular Surgical History: Reports: None Respiratory Surgical History: Reports: None GI Surgical History: Reports: None Male Surgical History: Reports: None, TURP-Transurethral Resection of Prostate Musculoskeletal Surgical History: Reports: Amputation Oncologic Surgical History: Reports: None Dermatological Surgical History: Reports: Skin Biopsy Social & Family History - Family History Family Medical History: Noncontributory - Tobacco Use Smoking Status *Q: Never Smoker Used Tobacco, but Quit: No Second Hand Smoke Exposure: No - Caffeine Use Caffeine Use: Reports: Coffee Other Caffeine Use: one or two cups daily - Recreational Drug Use Recreational Drug Use: No H&P Review of Systems - Review of Systems: Review Of Systems: Comprehensive ROS is negative, except as noted in HPI. Exam - Exam Exam: See Below - Vital Signs Vital Signs: Last Vital Signs Temp 98.3 F 06/19/19 16:00 Pulse 90 06/19/19 16:00 Resp 18 06/19/19 16:00 BP 110/55 L 06/19/19 16:00 Pulse Ox 95 06/19/19 16:00 Weight: 147 lb 12.8 oz - Exam General: Alert, Oriented, Cooperative, Mild Distress HEENT: PERRLA, Conjunctiva Clear, Other (MM are dry) Neck: Supple, Trachea Midline Lungs: Clear to Auscultation, Normal Respiratory Effort, Decreased Breath Sounds (bibasilar). No: Crackles, Wheezing Cardiovascular: Regular Rate, Regular Rhythm GI/Abdominal Exam: Soft, No Distention, Guarding, Tender (throughout, most tender in RUQ), Abnormal Bowel Sounds (hypoactive x 4.). No: Rigid, Rebound (Male) Exam: Deferred Rectal (Males) Exam: Deferred Extremities: No Pedal Edema Skin: Warm, Dry, Intact Neuro Extensive - Mental Status: Alert, Oriented x3, Normal Mood/Affect - Patient Data Lab Results Last 24 hrs: Laboratory Results - last 24 hr 06/18/19 06/18/19 06/18/19 Range/Units 22:36 22:36 22:36 WBC 10.0 (4.5-12.0) X10-3/uL RBC 4.80 (4.30-5.75) x10(6)uL Hgb 14.3 (13.5-17.8) g/dL Hct 43.3 (30.0-51.3) % MCV 90.2 (80-96) fL MCH 29.8 (27.7-33.6) pg MCHC 33.1 (32.2-35.4) g/dL RDW 14.9 (11.5-15.5) % Plt Count 179 (125-369) X10(3)uL MPV 8.9 (7.4-10.4) fL Neut % (Auto) 81.4 (46-82) % Lymph % (Auto) 8.3 L (13-37) % [place] % (Auto) 6.3 (4-12) % Eos % (Auto) 3 (1.0-5.0) % Baso % (Auto) 1 (0-2) % Neut # (Auto) 8.1 (1.6-8.3) # Lymph # (Auto) 0.8 (0.6-5.0) # [place] # (Auto) 0.6 (0.0-1.3) # Eos # (Auto) 0.3 (0.0-0.8) # Baso # (Auto) 0.1 (0.0-0.2) # Add Manual Diff Neutrophils % (Manual) (46-82) % Band Neutrophils % (0-6) % Lymphocytes % (Manual) (13-37) % Monocytes % (Manual) (4-12) % Sodium 139 (135-145) mmol/L Potassium 4.4 (3.5-5.3) mmol/L Chloride 100 (100-110) mmol/L Carbon Dioxide 33 H (21-32) mmol/L BUN 24 H (7-18) mg/dL Creatinine 1.8 H (0.70-1.30) mg/dL Est Cr Clr Drug Dosing TNP Estimated GFR (MDRD) 36 L (>60) BUN/Creatinine Ratio 13.3 (9-20) Glucose 384 H (80-116) mg/dL Calcium 8.9 (8.6-10.2) mg/dL Total Bilirubin 0.4 (0.1-1.3) mg/dL AST 15 (5-25) IU/L ALT 16 D (12-36) U/L Alkaline Phosphatase 91 (56-112) IU/L Total Protein 7.4 (6.0-8.0) g/dL Albumin 3.6 (3.2-4.6) g/dL Globulin 3.8 g/dL Albumin/Globulin Ratio 1.0 Amylase 39 (25-115) U/L Lipase 263 (73-393) U/L Urine Color (YELLOW) Urine Appearance (CLEAR) Urine pH (5.0-6.5) Ur Specific [place] (1.010-1.025) Urine Protein (NEGATIVE) mg/dL Urine Glucose (UA) (NORMAL) mg/dL Urine Ketones (NEGATIVE) mg/dL Urine Occult Blood (NEGATIVE) Urine Nitrite (NEGATIVE) Urine Bilirubin (NEGATIVE) Urine Urobilinogen (NEGATIVE) mg/dL Ur Leukocyte Esterase (NEGATIVE) Urine RBC (0-5) Urine WBC (0-5) Ur Squamous Epith Cells (NS,R,O) Urine Bacteria (NS) Coarse Granular Casts (NS) 06/19/19 06/19/19 06/19/19 Range/Units 06:40 06:40 16:00 WBC 9.9 (4.5-12.0) X10-3/uL RBC 4.95 (4.30-5.75) x10(6)uL Hgb 14.9 (13.5-17.8) g/dL Hct 44.7 (30.0-51.3) % MCV 90.4 (80-96) fL MCH 30.2 (27.7-33.6) pg MCHC 33.4 (32.2-35.4) g/dL RDW 15.0 (11.5-15.5) % Plt Count 180 (125-369) X10(3)uL MPV 9.3 (7.4-10.4) fL Neut % (Auto) (46-82) % Lymph % (Auto) (13-37) % [place] % (Auto) (4-12) % Eos % (Auto) (1.0-5.0) % Baso % (Auto) (0-2) % Neut # (Auto) (1.6-8.3) # Lymph # (Auto) (0.6-5.0) # [place] # (Auto) (0.0-1.3) # Eos # (Auto) (0.0-0.8) # Baso # (Auto) (0.0-0.2) # Add Manual Diff Yes Neutrophils % (Manual) 70 (46-82) % Band Neutrophils % 20 H* (0-6) % Lymphocytes % (Manual) 6 L (13-37) % Monocytes % (Manual) 4 (4-12) % Sodium 141 (135-145) mmol/L Potassium 4.7 (3.5-5.3) mmol/L Chloride 103 (100-110) mmol/L Carbon Dioxide 30 (21-32) mmol/L BUN 30 H (7-18) mg/dL Creatinine 2.0 H* (0.70-1.30) mg/dL Est Cr Clr Drug Dosing 26.07 Estimated GFR (MDRD) 32 L (>60) BUN/Creatinine Ratio 15.0 (9-20) Glucose 346 H (80-116) mg/dL Calcium 8.4 L (8.6-10.2) mg/dL Total Bilirubin (0.1-1.3) mg/dL AST (5-25) IU/L ALT (12-36) U/L Alkaline Phosphatase (56-112) IU/L Total Protein (6.0-8.0) g/dL Albumin (3.2-4.6) g/dL Globulin g/dL Albumin/Globulin Ratio Amylase (25-115) U/L Lipase (73-393) U/L Urine Color Yellow (YELLOW) Urine Appearance Clear (CLEAR) Urine pH 5.0 (5.0-6.5) Ur Specific [place] 1.025 (1.010-1.025) Urine Protein 100 H (NEGATIVE) mg/dL Urine Glucose (UA) >1000 H (NORMAL) mg/dL Urine Ketones Negative (NEGATIVE) mg/dL Urine Occult Blood Moderate H (NEGATIVE) Urine Nitrite Negative (NEGATIVE) Urine Bilirubin Negative (NEGATIVE) Urine Urobilinogen Normal (NEGATIVE) mg/dL Ur Leukocyte Esterase Negative (NEGATIVE) Urine RBC 0-5 (0-5) Urine WBC 0-5 (0-5) Ur Squamous Epith Cells Occasional (NS,R,O) Urine Bacteria Few H (NS) Coarse Granular Casts Few H (NS) Result Diagrams: 06/19/19 06:40 06/19/19 06:40 Sepsis Event Note - Evaluation Sepsis Screening Result: No Definite Risk - Focused Exam Vital Signs: Vital Signs Temp Pulse Resp BP Pulse Ox 06/19/19 16:00 98.3 F 90 18 110/55 L 95 06/19/19 12:00 98.6 F 94 17 121/64 96 06/19/19 08:00 98.5 F 100 18 137/77 97 Date Exam was Performed: 06/19/19 Time Exam was Performed: 18:45 - Problem List (1) Partial bowel obstruction SNOMED Code(s): 11692580306347788 ICD Code: K56.600 - PARTIAL INTESTINAL OBSTRUCTION, UNSPECIFIED TO CAUSE Status: Acute Current Visit: Yes Problem Details: distal ileum (2) Pneumonia SNOMED Code(s): 081609329 ICD Code: J18.9 - PNEUMONIA, UNSPECIFIED ORGANISM Status: Acute Current Visit: Yes Problem Details: bilateral, bases, upper lobes with questionable abscess nodules. (3) Pancreatic mass Status: Acute Current Visit: Yes (4) Cecum mass SNOMED Code(s): 396707061, 304148364 ICD Code: K63.89 - OTHER SPECIFIED DISEASES OF INTESTINE Status: Acute Current Visit: Yes (5) Abdominal pain SNOMED Code(s): 07352309 ICD Code: R10.9 - UNSPECIFIED ABDOMINAL PAIN Status: Acute Current Visit : Yes Problem Details: Abdominal pain related to Gi malignancies, without clinical evidence of infection, bleeding or obstruction. He is clinically improved. He did experience some angina near discharge, improved with Nitrostat SL. Qualifiers: Abdominal location: generalized Qualified Code(s): R10.84 - Generalized abdominal pain (6) CKD (chronic kidney disease) SNOMED Code(s): 519087134 ICD Code: N18.9 - CHRONIC KIDNEY DISEASE, UNSPECIFIED Status: Acute Current Visit: No (7) Congestive heart failure (CHF) SNOMED Code(s): 71856040 ICD Code: I50.9 - HEART FAILURE, UNSPECIFIED Status: Acute Current Visit : No Qualifiers: Qualified Code(s): I50.21 - Acute systolic (congestive) heart failure Problem List Initiated/Reviewed/Updated: Yes Orders Last 24hrs: Active Orders 24 hr Category Date Time Status Patient Status [ADT] Routine ADT 06/19/19 15:40 Active Intake and Output [RC] QSHIFT Care 06/19/19 00:52 Active Oxygen Therapy [RC] 02 Care 06/19/19 00:49 Active Pulse Oximetry [RC] CONTINUOUS Care 06/19/19 00:54 Active Up With Assistance [RC] ASDIRECTED Care 06/19/19 00:49 Active VTE/DVT Education [RC] 08 Care 06/19/19 00:49 Active Vital Signs [RC] 08,12,16,20,00,04 Care 06/19/19 00:49 Active Nothing per Oral Now Diet [DIET] Diet 06/19/19 Breakfast Ordered BASIC METABOLIC PANEL,BMP [CHEM] Routine Lab 06/20/19 06:00 Ordered Albuterol [Ventolin HFA] Med 06/19/19 02:19 Active 0 gm INH Q6H PRN Azithromycin [Zithromax] 500 mg Med 06/19/19 16:30 Active Sodium Chloride 0.9% [Normal Saline] 250 ml IV Q24H Enoxaparin [Lovenox] Med 06/20/19 08:00 Active 30 mg SUBCUT Q24H HYDROmorphone [Dilaudid] Med 06/19/19 01:01 Active 1 mg IVPUSH Q4H PRN LORazepam [Ativan] Med 06/19/19 02:21 Active 1 mg IVPUSH Q8H PRN Metoclopramide [Reglan] Med 06/19/19 11:54 Active 5 mg PO Q8H PRN Simethicone Med 06/19/19 09:00 Active 80 mg PO TIDPC Sodium Chloride 0.9% [Normal Saline] 1,000 ml Med 06/19/19 00:30 Active IV ASDIRECTED Sodium Chloride 0.9% [Saline Flush] Med 06/18/19 22:30 Active 10 ml FLUSH ASDIRECTED PRN cefTRIAXone [Rocephin] Med 06/19/19 16:00 Active 1 gm IVPUSH Q24H fentaNYL [Duragesic] Med 06/21/19 16:00 Active 25 mcg TRDERM Q72H Saline Lock Insert [OM.PC] Routine Oth 06/18/19 22:30 Ordered Code Status [Resuscitation Status] Routine Resus Stat 06/19/19 15:45 Ordered Medication Orders Albuterol (Ventolin Hfa) 0 gm INH Q6H PRN PRN Reason: difficulty breathing Ceftriaxone Sodium (Rocephin) 1 gm IVPUSH Q24H [facility] Last Admin: 06/19/19 16:26 Dose: 1 gm Enoxaparin Sodium (Lovenox) 30 mg SUBCUT Q24H JAVON Fentanyl (Duragesic) 25 mcg TRDERM Q72H JAVON Hydromorphone HCl (Dilaudid) 1 mg IVPUSH Q4H PRN PRN Reason: Pain Last Admin: 06/19/19 11:18 Dose: 1 mg Sodium Chloride (Normal Saline) 1,000 mls @ 100 mls/hr IV ASDIRECTED [facility] Last Infusion: 06/19/19 11:30 Dose: 75 mls/hr Admin: 06/19/19 11:16 Dose: 100 mls/hr Infusion: 06/19/19 11:12 Dose: 100 mls/hr Admin: 06/19/19 01:12 Dose: 100 mls/hr Azithromycin 500 mg/ Sodium (Chloride) 250 mls @ 250 mls/hr IV Q24H [facility] Last Admin: 06/19/19 16:31 Dose: 250 mls/hr Lorazepam (Ativan) 1 mg IVPUSH Q8H PRN PRN Reason: Anxiety Last Admin: 06/19/19 03:42 Dose: 1 mg Metoclopramide HCl (Reglan) 5 mg PO Q8H PRN PRN Reason: Nausea Simethicone (Simethicone) 80 mg PO TIDPC [facility] Last Admin: 06/19/19 13:42 Dose: 80 mg Admin: 06/19/19 09:46 Dose: 80 mg Admin: 06/18/19 23:06 Dose: 80 mg Sodium Chloride (Saline Flush) 10 ml FLUSH ASDIRECTED PRN PRN Reason: Keep Vein Open Last Admin: 06/18/19 22:51 Dose: 10 ml Assessment/Plan Comment:: 1. Admit for abdominal pain, partial bowel obstruction secondary to cecal mass, pneumonia with questionable abscess nodules. 2. Rocephin 1 G IV q24 and Azithromycin 500 mg IV q24h, Florastor 250 mg bid. 3. Dilaudid 1 mg IV as needed, Ativan as needed anxiety, Fentanyl patch change to 25 mcg instead of 2 patches of 12 mcg q72hrs. 4. NPO with water/ice chips. 5. Simethicone as needed gas. 6. DVT prophylaxis: Lovenox 40 mg daily. 7. CODE STATUS: DNR/DNI per his living will. He does not want surgery, willing to treat pneumonia and try bowel rest, possible NG tube for decompression if needed. Family has already contacted Hospice, will continue to reassess over the weekend. If we can not get him to point where he can eat, then would need to make him comfort measures. Will keep daughter Екатерина updated at to his progress. - Mortality Measure Prognosis:: Poor
[2019-06-19] MEDS: Nitroglycerin 2% Oint 1 GM UD Packet TOP SCH (21:36)
[2019-06-20] MEDS: Nitroglycerin 2% Oint 1 GM UD Packet TOP SCH ×2 (00:25→03:45)
[2019-06-20] MEDS: Albuterol 8 GM Inhaler INH PRN (01:07)
[2019-06-20] MEDS: HYDROmorphone 2 MG/ML SDV IVPUSH PRN ×2 (05:34→16:58)
[2019-06-20] MEDS: Simethicone 80 MG Tab.Chew PO SCH ×3 (08:02→19:35)
[2019-06-20] MEDS: Enoxaparin 30 MG/0.3 ML Syringe SUBCUT SCH (08:02)
[2019-06-20] MEDS ORDERED: Isosorbide Mononitrate 60 MG Tab.ER PO SCH (09:00)
--- NOTE | 2019-06-20 10:36 | PCM.PN ---
- General Info Date of Service: 06/20/19 Admission Dx/Problem (Free Text): Scott had some loose stools overnight, had one incontinent stool. Urinating better. Pain is better controlled today. Belching and passing gas distally. No coughing or difficulty breathing today. Tolerated Nitro paste overnight. - Patient Data Vitals - Most Recent: Last Vital Signs Temp 97.8 F 06/20/19 05:00 Pulse 92 06/20/19 05:00 Resp 18 06/20/19 05:00 BP 112/63 06/20/19 05:00 Pulse Ox 99 06/20/19 05:00 Weight - Most Recent: 147 lb 12.8 oz I&O - Last 24 Hours: Intake & Output 06/19/19 06/20/19 06/20/19 22:59 06:59 14:59 Intake Total 2010 580 Output Total 350 Balance 2010 230 Lab Results Last 24 Hours: Laboratory Results - last 24 hr 06/19/19 06/20/19 Range/Units 16:00 06:10 Sodium 145 (135-145) mmol/L Potassium 4.1 (3.5-5.3) mmol/L Chloride 107 (100-110) mmol/L Carbon Dioxide 31 (21-32) mmol/L BUN 45 H D (7-18) mg/dL Creatinine 2.0 H* (0.70-1.30) mg/dL Est Cr Clr Drug Dosing 26.07 mL/min Estimated GFR (MDRD) 32 L (>60) BUN/Creatinine Ratio 22.5 H (9-20) Glucose 200 H D (80-116) mg/dL Calcium 7.5 L (8.6-10.2) mg/dL Urine Color Yellow (YELLOW) Urine Appearance Clear (CLEAR) Urine pH 5.0 (5.0-6.5) Ur Specific [place] 1.025 (1.010-1.025) Urine Protein 100 H (NEGATIVE) mg/dL Urine Glucose (UA) >1000 H (NORMAL) mg/dL Urine Ketones Negative (NEGATIVE) mg/dL Urine Occult Blood Moderate H (NEGATIVE) Urine Nitrite Negative (NEGATIVE) Urine Bilirubin Negative (NEGATIVE) Urine Urobilinogen Normal (NEGATIVE) mg/dL Ur Leukocyte Esterase Negative (NEGATIVE) Urine RBC 0-5 (0-5) Urine WBC 0-5 (0-5) Ur Squamous Epith Cells Occasional (NS,R,O) Urine Bacteria Few H (NS) Coarse Granular Casts Few H (NS) Med Orders - Current: Current Medications Albuterol (Ventolin Hfa) 0 gm INH Q6H PRN PRN Reason: difficulty breathing Last Admin: 06/20/19 01:07 Dose: 2 puff Ceftriaxone Sodium (Rocephin) 1 gm IVPUSH Q24H [facility] Last Admin: 06/19/19 16:26 Dose: 1 gm Enoxaparin Sodium (Lovenox) 30 mg SUBCUT Q24H [facility] Last Admin: 06/20/19 08:02 Dose: 30 mg Fentanyl (Duragesic) 25 mcg TRDERM Q72H [facility] Hydromorphone HCl (Dilaudid) 1 mg IVPUSH Q4H PRN PRN Reason: Pain Last Admin: 06/20/19 05:34 Dose: 1 mg Sodium Chloride (Normal Saline) 1,000 mls @ 75 mls/hr IV ASDIRECTED [facility] Last Admin: 06/19/19 23:42 Dose: 75 mls/hr Azithromycin 500 mg/ Sodium (Chloride) 250 mls @ 250 mls/hr IV Q24H [facility] Last Admin: 06/19/19 16:31 Dose: 250 mls/hr Isosorbide Mononitrate (Imdur) 60 mg PO DAILY [facility] Isosorbide Mononitrate (Imdur) 30 mg PO BEDTIME [facility] Lorazepam (Ativan) 1 mg IVPUSH Q8H PRN PRN Reason: Anxiety Last Admin: 06/19/19 19:24 Dose: 1 mg Lorazepam (Ativan) 1 mg PO Q4H PRN PRN Reason: air hunger Metoclopramide HCl (Reglan) 5 mg PO Q8H PRN PRN Reason: Nausea Simethicone (Simethicone) 80 mg PO TIDPC [facility] Last Admin: 06/20/19 08:02 Dose: 80 mg Sodium Chloride (Saline Flush) 10 ml FLUSH ASDIRECTED PRN PRN Reason: Keep Vein Open Last Admin: 06/18/19 22:51 Dose: 10 ml Discontinued Medications Diatrizoate Meglum/Diatrizoate Sod (Gastrografin 37%) 30 ml PO . DIRECTED ONE Stop: 06/19/19 12:13 Last Admin: 06/19/19 12:21 Dose: 30 ml Enoxaparin Sodium (Lovenox) 30 mg SUBCUT Q24H [facility] Last Admin: 06/19/19 02:20 Dose: 30 mg Hydromorphone HCl (Dilaudid) 2 mg IVPUSH ONETIME ONE Stop: 06/18/19 22:32 Last Admin: 06/18/19 22:50 Dose: 2 mg Hydromorphone HCl (Dilaudid) 1 mg IVPUSH ONETIME ONE Stop: 06/18/19 23:54 Last Admin: 06/18/19 23:56 Dose: 1 mg Sodium Chloride (Normal Saline) 1,000 mls @ 999 mls/hr IV ASDIRECTED [facility] Last Admin: 06/18/19 23:00 Dose: 999 mls/hr Metoclopramide HCl (Reglan) 5 mg IV NOW STA Stop: 06/19/19 00:24 Last Admin: 06/19/19 01:16 Dose: 5 mg Naloxone HCl (Narcan) 0.2 mg IVPUSH NOW STA Stop: 06/18/19 23:41 Last Admin: 06/18/19 23:44 Dose: 0.2 mg Nitroglycerin (Nitro-Bid 2%) 1 gm TOP Q8H [facility] Last Admin: 06/20/19 03:45 Dose: Not Given Ondansetron HCl (Zofran) 4 mg IVPUSH ONETIME ONE Stop: 06/18/19 23:23 Last Admin: 06/18/19 23:30 Dose: 4 mg Ondansetron HCl (Zofran) 4 mg IVPUSH ONETIME ONE Stop: 06/19/19 00:24 Last Admin: 06/19/19 01:16 Dose: 4 mg Ondansetron HCl (Zofran) 4 mg IVPUSH ONETIME ONE Stop: 06/19/19 00:59 Last Admin: 06/19/19 01:35 Dose: Not Given Ondansetron HCl (Zofran) 4 mg IVPUSH Q6H PRN PRN Reason: NAUSEA Last Admin: 06/19/19 09:46 Dose: 4 mg Simethicone (Infants' Gas Relief) 80 mg PO ONETIME ONE Stop: 06/18/19 22:32 Last Admin: 06/18/19 23:11 Dose: Not Given Simethicone (Simethicone) Confirm Administered Dose 80 mg .ROUTE .STK-MED ONE Stop: 06/18/19 22:57 Last Admin: 06/18/19 23:07 Dose: Not Given - Exam General: Alert, Oriented, Cooperative, No Acute Distress Lungs: Clear to Auscultation, Normal Respiratory Effort, Decreased Breath Sounds (LLL). No: Crackles, Wheezing Cardiovascular: Regular Rate, Irregular Rhythm GI/Abdominal Exam: Soft, Non-Tender, No Distention, Abnormal Bowel Sounds ( hyperactive BS X 3, hypoactive BS x 1(LLQ)). No: Guarding, Rigid, Rebound Extremities: No Pedal Edema Skin: Warm, Dry Wound/Incisions: No Drainage, Other (Scab on RLE came off in shower this morning , superficial ulcer present 1 cm on Right spencer). No: Erythema Psy/Mental Status: Alert, Normal Affect, Normal Mood Sepsis Event Note - Evaluation Sepsis Screening Result: No Definite Risk - Focused Exam Vital Signs: Vital Signs Temp Pulse Resp BP Pulse Ox 06/20/19 05:00 97.8 F 92 18 112/63 99 06/20/19 04:00 99 06/20/19 00:15 107/60 06/20/19 00:00 96 06/19/19 23:30 98.6 F 83 18 93/52 L 96 Date Exam was Performed: 06/20/19 Time Exam was Performed: 10:30 - Problem List & Annotations (1) Partial bowel obstruction SNOMED Code(s): 53797106651045947 Code(s): K56.600 - PARTIAL INTESTINAL OBSTRUCTION, UNSPECIFIED TO CAUSE Status: Acute Current Visit: Yes Annotation/Comment:: distal ileum, improving. (2) Pneumonia SNOMED Code(s): 790459421 Code(s): J18.9 - PNEUMONIA, UNSPECIFIED ORGANISM Status: Acute Current Visit: Yes Annotation/Comment:: bilateral, bases, upper lobes with questionable abscess nodules. (3) Pancreatic mass Status: Acute Current Visit: Yes (4) Cecum mass SNOMED Code(s): 577236083, 368531533 Code(s): K63.89 - OTHER SPECIFIED DISEASES OF INTESTINE Status: Acute Current Visit: Yes (5) Abdominal pain SNOMED Code(s): 41810343 Code(s): R10.9 - UNSPECIFIED ABDOMINAL PAIN Status: Acute Current Visit: Yes Qualifiers: Abdominal location: generalized Qualified Code(s): R10.84 - Generalized abdominal pain Annotation/Comment:: Improved with bowel rest and had some loose stools overnight. Continue pain management. Advance diet to clears, if tolerates will advance to bland diet. (6) CKD (chronic kidney disease) SNOMED Code(s): 200324489 Code(s): N18.9 - CHRONIC KIDNEY DISEASE, UNSPECIFIED Status: Acute Current Visit: No (7) Congestive heart failure (CHF) SNOMED Code(s): 77976116 Code(s): I50.9 - HEART FAILURE, UNSPECIFIED Status: Acute Current Visit: No Qualifiers: Qualified Code(s): I50.21 - Acute systolic (congestive) heart failure - Problem List Review Problem List Initiated/Reviewed/Updated: Yes - My Orders Last 24 Hours: My Active Orders 06/19/19 11:54 Metoclopramide [Reglan] 5 mg PO Q8H PRN 06/19/19 15:40 Patient Status [ADT] Routine 06/19/19 15:45 Code Status [Resuscitation Status] Routine 06/19/19 16:00 cefTRIAXone [Rocephin] 1 gm IVPUSH Q24H 06/19/19 16:30 Azithromycin [Zithromax] 500 mg Sodium Chloride 0.9% [Normal Saline] 250 ml IV Q24H 06/20/19 08:56 LORazepam [Ativan] 1 mg PO Q4H PRN 06/20/19 09:00 Isosorbide Mononitrate [Imdur] 60 mg PO DAILY 06/20/19 21:00 Isosorbide Mononitrate [Imdur] 30 mg PO BEDTIME 06/20/19 Lunch Clear Liquid Diet [DIET] 06/21/19 06:00 CBC WITH AUTO DIFF [HEME] Routine RENAL FUNCTION PANEL,RFP [CHEM] Routine - Plan Plan:: 1. Rocephin and Azithromycin day 2, Florastor 250 mg bid. 2. Dilaudid 1 mg IV as needed, Ativan as needed anxiety, Fentanyl patch change to 25 mcg instead of 2 patches of 12 mcg q72hrs. 3. Hydrogel, 4x4 gauze, with Kerlix to Right spencer daily. 4. Advance diet to clears, change Ativan to po and restart Imdur. If he tolerates will restart his home medications and advance to bland diet. 5. Simethicone as needed gas. 6. DVT prophylaxis: Lovenox 40 mg daily. 7. CODE STATUS: DNR/DNI per his living will. He does not want surgery, willing to treat pneumonia and try bowel rest, family has already contacted Hospice, will continue to reassess over the weekend. Will keep daughter Екатерина updated at to his progress.
[2019-06-20] MEDS: Metoclopramide 5 MG Tab PO PRN (11:12)
[2019-06-20] MEDS ORDERED: Isosorbide Mononitrate 30 MG Tab.ER PO ONE (11:15)
[2019-06-20] MEDS: Sodium Chloride 0.9% 1,000 ML IV SCH (13:02)
[2019-06-20] MEDS: cefTRIAXone 1 GM Vial IVPUSH SCH (16:12)
[2019-06-20] MEDS: Azithromycin 500 MG in Sodium Chloride 0.9% 250 ML IV SCH (16:21)
[2019-06-20] MEDS: Isosorbide Mononitrate 30 MG Tab.ER PO SCH (20:23)
[2019-06-20] MEDS: LORazepam 1 MG Tab PO PRN (22:58)
[2019-06-21] MEDS: HYDROmorphone 2 MG/ML SDV IVPUSH PRN ×2 (01:56→13:35)
[2019-06-21] MEDS: Sodium Chloride 0.9% 10 ML Syringe FLUSH PRN ×3 (02:00→18:09)
[2019-06-21] MEDS: Enoxaparin 30 MG/0.3 ML Syringe SUBCUT SCH (08:19)
[2019-06-21] MEDS: Simethicone 80 MG Tab.Chew PO SCH ×3 (08:26→19:31)
[2019-06-21] MEDS ORDERED: Isosorbide Mononitrate 30 MG Tab.ER PO SCH (09:00)
--- NOTE | 2019-06-21 10:04 | PCM.PN ---
- General Info Date of Service: 06/21/19 Admission Dx/Problem (Free Text): Had more bowel movements yesterday. Had some chest tightness last night, was given Dilaudid and Ativan last night, with resolution of symptoms. Tolerated supper and breakfast this morning with no worsening of pain. Tolerated taking Imdur and Ativan oral. - Patient Data Vitals - Most Recent: Last Vital Signs Temp 97.8 F 06/21/19 08:00 Pulse 90 06/21/19 08:00 Resp 17 06/21/19 08:00 BP 125/62 06/21/19 08:25 Pulse Ox 97 06/21/19 08:00 Weight - Most Recent: 147 lb 12.8 oz I&O - Last 24 Hours: Intake & Output 06/20/19 06/21/19 06/21/19 22:59 06:59 14:59 Intake Total 1000 Output Total 100 200 Balance 900 -200 Lab Results Last 24 Hours: Laboratory Results - last 24 hr 06/21/19 06/21/19 Range/Units 06:35 06:35 WBC 10.1 (4.5-12.0) X10-3/uL RBC 3.58 L (4.30-5.75) x10(6)uL Hgb 10.9 L D (13.5-17.8) g/dL Hct 32.8 D (30.0-51.3) % MCV 91.8 (80-96) fL MCH 30.5 (27.7-33.6) pg MCHC 33.2 (32.2-35.4) g/dL RDW 15.2 (11.5-15.5) % Plt Count 128 (125-369) X10(3)uL MPV 9.5 (7.4-10.4) fL Add Manual Diff Yes Neutrophils % (Manual) 75 (46-82) % Band Neutrophils % 3 (0-6) % Lymphocytes % (Manual) 15 (13-37) % Monocytes % (Manual) 6 (4-12) % Eosinophils % (Manual) 1 (0-5) % Sodium 142 (135-145) mmol/L Potassium 4.0 (3.5-5.3) mmol/L Chloride 106 (100-110) mmol/L Carbon Dioxide 29 (21-32) mmol/L BUN 43 H (7-18) mg/dL Creatinine 1.7 H (0.70-1.30) mg/dL Est Cr Clr Drug Dosing 30.67 mL/min Estimated GFR (MDRD) 39 L (>60) BUN/Creatinine Ratio 25.3 H (9-20) Glucose 168 H (80-116) mg/dL Calcium 7.4 L (8.6-10.2) mg/dL Phosphorus 2.7 (2.6-4.6) mg/dL Albumin 2.1 L (3.2-4.6) g/dL Med Orders - Current: Current Medications Albuterol (Ventolin Hfa) 0 gm INH Q6H PRN PRN Reason: difficulty breathing Last Admin: 06/20/19 01:07 Dose: 2 puff Ceftriaxone Sodium (Rocephin) 1 gm IVPUSH Q24H [facility] Last Admin: 06/20/19 16:12 Dose: 1 gm Enoxaparin Sodium (Lovenox) 30 mg SUBCUT Q24H [facility] Last Admin: 06/21/19 08:19 Dose: 30 mg Fentanyl (Duragesic) 25 mcg TRDERM Q72H [facility] Hydromorphone HCl (Dilaudid) 1 mg IVPUSH Q4H PRN PRN Reason: Pain Last Admin: 06/21/19 01:56 Dose: 1 mg Sodium Chloride (Normal Saline) 1,000 mls @ 50 mls/hr IV ASDIRECTED [facility] Last Admin: 06/20/19 13:02 Dose: 75 mls/hr Azithromycin 500 mg/ Sodium (Chloride) 250 mls @ 250 mls/hr IV Q24H [facility] Last Admin: 06/20/19 16:21 Dose: 250 mls/hr Isosorbide Mononitrate (Imdur) 30 mg PO BEDTIME [facility] Last Admin: 06/20/19 20:23 Dose: 30 mg Isosorbide Mononitrate (Imdur) 60 mg PO DAILY [facility] Last Admin: 06/21/19 08:25 Dose: 60 mg Lorazepam (Ativan) 1 mg IVPUSH Q8H PRN PRN Reason: Anxiety Last Admin: 06/19/19 19:24 Dose: 1 mg Lorazepam (Ativan) 1 mg PO Q4H PRN PRN Reason: air hunger Last Admin: 06/20/19 22:58 Dose: 1 mg Metoclopramide HCl (Reglan) 5 mg PO Q8H PRN PRN Reason: Nausea Last Admin: 06/20/19 11:12 Dose: 5 mg Nitroglycerin (Nitrostat) 0.4 mg SL Q5M PRN PRN Reason: Chest Pain Simethicone (Simethicone) 80 mg PO TIDPC [facility] Last Admin: 06/21/19 08:26 Dose: 80 mg Sodium Chloride (Saline Flush) 10 ml FLUSH ASDIRECTED PRN PRN Reason: Keep Vein Open Last Admin: 06/21/19 02:00 Dose: 10 ml Discontinued Medications Diatrizoate Meglum/Diatrizoate Sod (Gastrografin 37%) 30 ml PO . DIRECTED ONE Stop: 06/19/19 12:13 Last Admin: 06/19/19 12:21 Dose: 30 ml Enoxaparin Sodium (Lovenox) 30 mg SUBCUT Q24H [facility] Last Admin: 06/19/19 02:20 Dose: 30 mg Hydromorphone HCl (Dilaudid) 2 mg IVPUSH ONETIME ONE Stop: 06/18/19 22:32 Last Admin: 06/18/19 22:50 Dose: 2 mg Hydromorphone HCl (Dilaudid) 1 mg IVPUSH ONETIME ONE Stop: 06/18/19 23:54 Last Admin: 06/18/19 23:56 Dose: 1 mg Sodium Chloride (Normal Saline) 1,000 mls @ 999 mls/hr IV ASDIRECTED [facility] Last Admin: 06/18/19 23:00 Dose: 999 mls/hr Isosorbide Mononitrate (Imdur) 60 mg PO DAILY [facility] Last Admin: 06/20/19 11:45 Dose: Not Given Isosorbide Mononitrate (Imdur) 60 mg PO ONETIME ONE Stop: 06/20/19 11:16 Last Admin: 06/20/19 11:34 Dose: 60 mg Metoclopramide HCl (Reglan) 5 mg IV NOW STA Stop: 06/19/19 00:24 Last Admin: 06/19/19 01:16 Dose: 5 mg Naloxone HCl (Narcan) 0.2 mg IVPUSH NOW STA Stop: 06/18/19 23:41 Last Admin: 06/18/19 23:44 Dose: 0.2 mg Nitroglycerin (Nitro-Bid 2%) 1 gm TOP Q8H [facility] Last Admin: 06/20/19 03:45 Dose: Not Given Ondansetron HCl (Zofran) 4 mg IVPUSH ONETIME ONE Stop: 06/18/19 23:23 Last Admin: 06/18/19 23:30 Dose: 4 mg Ondansetron HCl (Zofran) 4 mg IVPUSH ONETIME ONE Stop: 06/19/19 00:24 Last Admin: 06/19/19 01:16 Dose: 4 mg Ondansetron HCl (Zofran) 4 mg IVPUSH ONETIME ONE Stop: 06/19/19 00:59 Last Admin: 06/19/19 01:35 Dose: Not Given Ondansetron HCl (Zofran) 4 mg IVPUSH Q6H PRN PRN Reason: NAUSEA Last Admin: 06/19/19 09:46 Dose: 4 mg Simethicone (Infants' Gas Relief) 80 mg PO ONETIME ONE Stop: 06/18/19 22:32 Last Admin: 06/18/19 23:11 Dose: Not Given Simethicone (Simethicone) Confirm Administered Dose 80 mg .ROUTE .STK-MED ONE Stop: 06/18/19 22:57 Last Admin: 06/18/19 23:07 Dose: Not Given - Exam General: Alert, Oriented, Cooperative, No Acute Distress Lungs: Clear to Auscultation, Normal Respiratory Effort, Decreased Breath Sounds (bibasilar) Cardiovascular: Regular Rate, Regular Rhythm GI/Abdominal Exam: Normal Bowel Sounds, Soft, No Distention, Tender (RLQ) Extremities: No Pedal Edema (RLE, 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.) Sepsis Event Note - Evaluation Sepsis Screening Result: No Definite Risk - Focused Exam Vital Signs: Vital Signs Temp Pulse Resp BP BP Pulse Ox Pulse Ox 06/21/19 08:25 125/62 06/21/19 08:00 97.8 F 90 17 125/62 97 06/21/19 02:00 113 H 20 126/68 94 L 06/21/19 01:31 95 06/20/19 23:30 84 20 104/60 95 Date Exam was Performed: 06/21/19 Time Exam was Performed: 09:59 - Problem List & Annotations (1) Partial bowel obstruction SNOMED Code(s): 14610180972980327 Code(s): K56.600 - PARTIAL INTESTINAL OBSTRUCTION, UNSPECIFIED TO CAUSE Status: Acute Current Visit: Yes Annotation/Comment:: distal ileum, improving. (2) Pneumonia SNOMED Code(s): 879448764 Code(s): J18.9 - PNEUMONIA, UNSPECIFIED ORGANISM Status: Acute Current Visit: Yes Annotation/Comment:: bilateral, bases, upper lobes with questionable abscess nodules. (3) Pancreatic mass Status: Acute Current Visit: Yes (4) Cecum mass SNOMED Code(s): 221184577, 931399835 Code(s): K63.89 - OTHER SPECIFIED DISEASES OF INTESTINE Status: Acute Current Visit: Yes (5) Abdominal pain SNOMED Code(s): 94926521 Code(s): R10.9 - UNSPECIFIED ABDOMINAL PAIN Status: Acute Current Visit: Yes Qualifiers: Abdominal location: generalized Qualified Code(s): R10.84 - Generalized abdominal pain Annotation/Comment:: Improved with bowel rest and had some loose stools overnight. Continue pain management. Advance to bland diet. (6) CKD (chronic kidney disease) SNOMED Code(s): 830534360 Code(s): N18.9 - CHRONIC KIDNEY DISEASE, UNSPECIFIED Status: Acute Current Visit: No (7) Congestive heart failure (CHF) SNOMED Code(s): 58703438 Code(s): I50.9 - HEART FAILURE, UNSPECIFIED Status: Acute Current Visit: No Qualifiers: Qualified Code(s): I50.21 - Acute systolic (congestive) heart failure - Problem List Review Problem List Initiated/Reviewed/Updated: Yes - My Orders Last 24 Hours: My Active Orders 06/20/19 21:00 Isosorbide Mononitrate [Imdur] 30 mg PO BEDTIME 06/20/19 Lunch Clear Liquid Diet [DIET] 06/21/19 08:23 Nitroglycerin [Nitrostat] 0.4 mg SL Q5M PRN 06/21/19 09:00 Isosorbide Mononitrate [Imdur] 60 mg PO DAILY - Plan Plan:: 1. Rocephin and Azithromycin day 3, Florastor 250 mg bid. 2. Dilaudid 1 mg IV as needed, Ativan as needed anxiety, Fentanyl patch change to 25 mcg. 3. Hydrogel, 4x4 gauze, with Kerlix to Right spencer daily. 4. Advance diet to bland diet, restart Nitro SL. 5. Simethicone as needed gas. 6. DVT prophylaxis: Lovenox 40 mg daily. 7. CODE STATUS: DNR/DNI per his living will. He does not want surgery, willing to treat pneumonia and try bowel rest, family has already contacted Hospice, will continue to reassess over the weekend. Will keep daughter Екатерина updated at to his progress.
[2019-06-21] MEDS: Famotidine 20 MG Tab PO SCH ×2 (11:45→20:34)
[2019-06-21] MEDS: fentaNYL 25 MCG/HR Transdermal Patch TRDERM SCH (16:51)
[2019-06-21] MEDS: Azithromycin 500 MG in Sodium Chloride 0.9% 250 ML IV SCH (16:57)
[2019-06-21] MEDS: cefTRIAXone 1 GM Vial IVPUSH SCH (16:57)
[2019-06-21] MEDS: Isosorbide Mononitrate 30 MG Tab.ER PO SCH (20:33)
[2019-06-21] MEDS: LORazepam 1 MG Tab PO PRN (21:37)
[2019-06-21] MEDS: Metoclopramide 5 MG Tab PO PRN (21:37)
[2019-06-22] MEDS: Albuterol 8 GM Inhaler INH PRN ×2 (01:11→16:15)
[2019-06-22] MEDS: Nitroglycerin 0.4 MG Tab.SL SL PRN ×2 (01:13→16:43)
[2019-06-22] MEDS: LORazepam 1 MG Tab PO PRN ×2 (02:31→16:11)
[2019-06-22] MEDS: Acetaminophen 325 MG Tab PO PRN ×2 (04:08→16:12)
[2019-06-22] MEDS: Furosemide 40 MG Tab PO SCH (08:22)
[2019-06-22] MEDS: Enoxaparin 30 MG/0.3 ML Syringe SUBCUT SCH (08:22)
[2019-06-22] MEDS: Simethicone 80 MG Tab.Chew PO SCH ×3 (08:22→18:47)
[2019-06-22] MEDS: Isosorbide Mononitrate 60 MG Tab.ER PO SCH (08:22)
[2019-06-22] MEDS: Famotidine 20 MG Tab PO SCH ×2 (08:22→20:21)
[2019-06-22] MEDS ORDERED: Morphine 10 MG/0.5 ML Oral Syringe PO PRN (09:37)
[2019-06-22] MEDS: Saccharomyces Boulardii (Probiotic) 250 MG Cap PO SCH ×2 (09:48→20:21)
--- NOTE | 2019-06-22 12:41 | PCM.PN ---
- General Info Date of Service: 06/22/19 Admission Dx/Problem (Free Text): Patient very tired this morning, states he didn't sleep much, gets so anxious at night. Екатерина his daughter stated that he takes his Nitro like "candy" at home and gets anxious if he can't have it. She also said this morning that they don' t have family capable to be with him at nights and Renee who is his caregiver also cannot stay with him at night. Екатерина states that everyone is burnt out and feel he needs to go to NH. Lisa, logistics planner is looking into NH placement for him, will have to do Covid screen prior to placement. - Patient Data Vitals - Most Recent: Last Vital Signs Temp 98.4 F 06/22/19 08:00 Pulse 111 H 06/22/19 08:00 Resp 18 06/22/19 08:00 BP 140/84 06/22/19 08:00 Pulse Ox 96 06/22/19 08:00 Weight - Most Recent: 147 lb 12.8 oz I&O - Last 24 Hours: Intake & Output 06/21/19 06/22/19 06/22/19 22:59 06:59 14:59 Intake Total 246 300 Output Total 250 Balance 246 -250 300 Lab Results Last 24 Hours: Laboratory Results - last 24 hr 06/22/19 Range/Units 06:40 Sodium 138 (135-145) mmol/L Potassium 4.0 (3.5-5.3) mmol/L Chloride 104 (100-110) mmol/L Carbon Dioxide 27 (21-32) mmol/L BUN 39 H (7-18) mg/dL Creatinine 1.7 H (0.70-1.30) mg/dL Est Cr Clr Drug Dosing 30.67 mL/min Estimated GFR (MDRD) 39 L (>60) BUN/Creatinine Ratio 22.9 H (9-20) Glucose 287 H D (80-116) mg/dL Calcium 7.9 L (8.6-10.2) mg/dL Med Orders - Current: Current Medications Acetaminophen (Tylenol) 650 mg PO Q4H PRN PRN Reason: Pain/Fever Last Admin: 06/22/19 04:08 Dose: 650 mg Albuterol (Ventolin Hfa) 0 gm INH Q6H PRN PRN Reason: difficulty breathing Last Admin: 06/22/19 01:11 Dose: 2 puff Azithromycin (Zithromax) 500 mg PO Q24H [facility] Stop: 06/23/19 12:46 Ceftriaxone Sodium (Rocephin) 1 gm IM Q24H [facility] Enoxaparin Sodium (Lovenox) 30 mg SUBCUT Q24H [facility] Last Admin: 06/22/19 08:22 Dose: 30 mg Famotidine (Pepcid) 20 mg PO BID [facility] Last Admin: 06/22/19 08:22 Dose: 20 mg Fentanyl (Duragesic) 25 mcg TRDERM Q72H [facility] Last Admin: 06/21/19 16:51 Dose: 25 mcg Furosemide (Lasix) 40 mg PO DAILY [facility] Last Admin: 06/22/19 08:22 Dose: 40 mg Isosorbide Mononitrate (Imdur) 30 mg PO BEDTIME [facility] Last Admin: 06/21/19 20:33 Dose: 30 mg Isosorbide Mononitrate (Imdur) 60 mg PO DAILY [facility] Last Admin: 06/22/19 08:22 Dose: 60 mg Lorazepam (Ativan) 1 mg PO Q4H PRN PRN Reason: air hunger Last Admin: 06/22/19 02:31 Dose: 1 mg Metoclopramide HCl (Reglan) 5 mg PO Q8H PRN PRN Reason: Nausea Last Admin: 06/21/19 21:37 Dose: 5 mg Morphine Sulfate (Morphine 10 Mg/0.5 Ml Oral Syringe) 5 mg SL Q30M PRN PRN Reason: PAIN/SHORTNESS OF BREATH Nitroglycerin (Nitrostat) 0.4 mg SL Q5M PRN PRN Reason: Chest Pain Last Admin: 06/22/19 01:13 Dose: 0.4 mg Oxazepam (Serax) 15 mg PO BEDTIME [facility] Last Admin: 06/21/19 20:35 Dose: 15 mg Saccharomyces Boulardii (Florastor) 250 mg PO BID [facility] Last Admin: 06/22/19 09:48 Dose: 250 mg Simethicone (Simethicone) 80 mg PO TIDPC [facility] Last Admin: 06/22/19 08:22 Dose: 80 mg Discontinued Medications Ceftriaxone Sodium (Rocephin) 1 gm IVPUSH Q24H [facility] Last Admin: 06/21/19 16:57 Dose: 1 gm Diatrizoate Meglum/Diatrizoate Sod (Gastrografin 37%) 30 ml PO . DIRECTED ONE Stop: 06/19/19 12:13 Last Admin: 06/19/19 12:21 Dose: 30 ml Enoxaparin Sodium (Lovenox) 30 mg SUBCUT Q24H [facility] Last Admin: 06/19/19 02:20 Dose: 30 mg Hydromorphone HCl (Dilaudid) 2 mg IVPUSH ONETIME ONE Stop: 06/18/19 22:32 Last Admin: 06/18/19 22:50 Dose: 2 mg Hydromorphone HCl (Dilaudid) 1 mg IVPUSH ONETIME ONE Stop: 06/18/19 23:54 Last Admin: 06/18/19 23:56 Dose: 1 mg Hydromorphone HCl (Dilaudid) 1 mg IVPUSH Q4H PRN PRN Reason: Pain Last Admin: 06/21/19 13:35 Dose: 1 mg Sodium Chloride (Normal Saline) 1,000 mls @ 999 mls/hr IV ASDIRECTED [facility] Last Admin: 06/18/19 23:00 Dose: 999 mls/hr Sodium Chloride (Normal Saline) 1,000 mls @ 50 mls/hr IV ASDIRECTED [facility] Last Admin: 06/20/19 13:02 Dose: 75 mls/hr Azithromycin 500 mg/ Sodium (Chloride) 250 mls @ 250 mls/hr IV Q24H [facility] Last Admin: 06/21/19 16:57 Dose: 250 mls/hr Isosorbide Mononitrate (Imdur) 60 mg PO DAILY [facility] Last Admin: 06/20/19 11:45 Dose: Not Given Isosorbide Mononitrate (Imdur) 60 mg PO DAILY [facility] Last Admin: 06/21/19 08:25 Dose: 60 mg Isosorbide Mononitrate (Imdur) 60 mg PO ONETIME ONE Stop: 06/20/19 11:16 Last Admin: 06/20/19 11:34 Dose: 60 mg Lorazepam (Ativan) 1 mg IVPUSH Q8H PRN PRN Reason: Anxiety Last Admin: 06/19/19 19:24 Dose: 1 mg Metoclopramide HCl (Reglan) 5 mg IV NOW STA Stop: 06/19/19 00:24 Last Admin: 06/19/19 01:16 Dose: 5 mg Morphine Sulfate (Morphine 10 Mg/0.5 Ml Oral Syringe) 5 mg PO Q30M PRN PRN Reason: PAIN/SHORTNESS OF BREATH Naloxone HCl (Narcan) 0.2 mg IVPUSH NOW STA Stop: 06/18/19 23:41 Last Admin: 06/18/19 23:44 Dose: 0.2 mg Nitroglycerin (Nitro-Bid 2%) 1 gm TOP Q8H [facility] Last Admin: 06/20/19 03:45 Dose: Not Given Ondansetron HCl (Zofran) 4 mg IVPUSH ONETIME ONE Stop: 06/18/19 23:23 Last Admin: 06/18/19 23:30 Dose: 4 mg Ondansetron HCl (Zofran) 4 mg IVPUSH ONETIME ONE Stop: 06/19/19 00:24 Last Admin: 06/19/19 01:16 Dose: 4 mg Ondansetron HCl (Zofran) 4 mg IVPUSH ONETIME ONE Stop: 06/19/19 00:59 Last Admin: 06/19/19 01:35 Dose: Not Given Ondansetron HCl (Zofran) 4 mg IVPUSH Q6H PRN PRN Reason: NAUSEA Last Admin: 06/19/19 09:46 Dose: 4 mg Simethicone (Infants' Gas Relief) 80 mg PO ONETIME ONE Stop: 06/18/19 22:32 Last Admin: 06/18/19 23:11 Dose: Not Given Simethicone (Simethicone) Confirm Administered Dose 80 mg .ROUTE .STK-MED ONE Stop: 06/18/19 22:57 Last Admin: 06/18/19 23:07 Dose: Not Given Sodium Chloride (Saline Flush) 10 ml FLUSH ASDIRECTED PRN PRN Reason: Keep Vein Open Last Admin: 06/21/19 18:09 Dose: 10 ml - Exam General: Alert, Cooperative, No Acute Distress Lungs: Clear to Auscultation, Normal Respiratory Effort, Decreased Breath Sounds (bibasilar). No: Crackles, Wheezing Cardiovascular: Regular Rate, Regular Rhythm GI/Abdominal Exam: Soft, No Distention, Tender (RLQ), Abnormal Bowel Sounds ( hyperactive BUQ, hypoactive BLQ) Extremities: No Pedal Edema (RLE) Sepsis Event Note - Evaluation Sepsis Screening Result: No Definite Risk - Focused Exam Vital Signs: Vital Signs Temp Pulse Resp BP BP Pulse Ox 06/22/19 08:00 98.4 F 111 H 18 140/84 96 06/22/19 01:13 128/70 06/22/19 01:00 98.4 F 97 20 128/70 92 L Date Exam was Performed: 06/22/19 Time Exam was Performed: 12:36 - Problem List & Annotations (1) Partial bowel obstruction SNOMED Code(s): 02382738573256827 Code(s): K56.600 - PARTIAL INTESTINAL OBSTRUCTION, UNSPECIFIED TO CAUSE Status: Acute Current Visit: Yes Annotation/Comment:: distal ileum, stable. Tolerating a bland diet. (2) Pneumonia SNOMED Code(s): 451652022 Code(s): J18.9 - PNEUMONIA, UNSPECIFIED ORGANISM Status: Acute Current Visit: Yes Annotation/Comment:: bilateral, bases, upper lobes with questionable abscess nodules. (3) Pancreatic mass Status: Acute Current Visit: Yes (4) Cecum mass SNOMED Code(s): 200536686, 463956575 Code(s): K63.89 - OTHER SPECIFIED DISEASES OF INTESTINE Status: Acute Current Visit: Yes (5) Abdominal pain SNOMED Code(s): 43786006 Code(s): R10.9 - UNSPECIFIED ABDOMINAL PAIN Status: Acute Current Visit: Yes Qualifiers: Abdominal location: generalized Qualified Code(s): R10.84 - Generalized abdominal pain Annotation/Comment:: Improved with bowel rest and had some loose stools overnight. Continue pain management. Advance to bland diet. (6) CKD (chronic kidney disease) SNOMED Code(s): 185457662 Code(s): N18.9 - CHRONIC KIDNEY DISEASE, UNSPECIFIED Status: Acute Current Visit: No (7) Congestive heart failure (CHF) SNOMED Code(s): 68910836 Code(s): I50.9 - HEART FAILURE, UNSPECIFIED Status: Acute Current Visit: No Qualifiers: Qualified Code(s): I50.21 - Acute systolic (congestive) heart failure - Problem List Review Problem List Initiated/Reviewed/Updated: Yes - My Orders Last 24 Hours: My Active Orders 06/21/19 21:00 Oxazepam [Serax] 15 mg PO BEDTIME 06/22/19 03:26 Acetaminophen [Tylenol] 650 mg PO Q4H PRN 06/22/19 09:00 Furosemide [Lasix] 40 mg PO DAILY Isosorbide Mononitrate [Imdur] 60 mg PO DAILY Saccharomyces Boulardii [Florastor] 250 mg PO BID 06/22/19 10:07 Morphine [Morphine 10 MG/0.5 ML Oral Syringe] 5 mg SL Q30M PRN 06/22/19 11:32 CORONAVIRUS COVID-19, ARABELLA Routine INPATIENT Routine 06/22/19 12:33 cefTRIAXone [Rocephin] 1 gm IM Q24H 06/22/19 12:45 Azithromycin [Zithromax] 500 mg PO Q24H - Plan Plan:: 1. Rocephin IM and Azithromycin 500 mg day 4, Florastor 250 mg bid. 2. Change to Morphine SL & Ativan oral as needed anxiety, Fentanyl patch change to 25 mcg. 3. Hydrogel, 4x4 gauze, with Kerlix to Right spencer daily. 4. Advance diet to bland diet, Nitro SL. 5. Simethicone as needed gas. 6. DVT prophylaxis: Lovenox 40 mg daily. 7. CODE STATUS: DNR/DNI per his living will. He does not want surgery, willing to treat the pneumonia, pulled out his IV so medications changed to oral equivalents, Family is now desiring NH with hospice. Covid screen ordered for NH placement.
[2019-06-22] MEDS ORDERED: cefTRIAXone 1 GM Vial IM SCH (16:00)
[2019-06-22] MEDS: Azithromycin 500 MG Tab PO SCH (16:11)
[2019-06-22] MEDS: Morphine 10 MG/0.5 ML Oral Syringe SL PRN ×4 (17:28→19:38)
[2019-06-22] MEDS: Isosorbide Mononitrate 30 MG Tab.ER PO SCH (20:21)
[2019-06-23] MEDS: Saccharomyces Boulardii (Probiotic) 250 MG Cap PO SCH ×2 (08:13→20:54)
[2019-06-23] MEDS: Enoxaparin 30 MG/0.3 ML Syringe SUBCUT SCH (08:13)
[2019-06-23] MEDS: Isosorbide Mononitrate 60 MG Tab.ER PO SCH (08:14)
[2019-06-23] MEDS: Furosemide 40 MG Tab PO SCH (08:14)
[2019-06-23] MEDS: Famotidine 20 MG Tab PO SCH ×2 (08:14→20:55)
[2019-06-23] MEDS: Simethicone 80 MG Tab.Chew PO SCH ×3 (08:14→18:45)
[2019-06-23] MEDS: LORazepam 1 MG Tab PO PRN (08:29)
[2019-06-23] MEDS: Losartan 50 MG Tab PO SCH (09:40)
[2019-06-23] MEDS: Cefdinir 300 MG Cap PO SCH ×2 (09:40→20:54)
[2019-06-23] MEDS ORDERED: Melatonin 3 MG Tab PO PRN (10:01)
--- NOTE | 2019-06-23 12:05 | PCM.PN ---
- General Info Date of Service: 06/23/19 Admission Dx/Problem (Free Text): Scott has declined since yesterday, he is not eating or drinking much. Not complaining of pain, more anxious. Breathing is more shallow, wheezing. He states he didn't sleep well. Екатерина his daughter will be coming in this afternoon to see him due to his decline. He is being screened for Covid for NH placement for end of life care, should have back tomorrow. He also only urinated about 100 ml this morning, bladder scan showed 500 ml. Functional Status: Reports: Pain Controlled - Patient Data Vitals - Most Recent: Last Vital Signs Temp 97.1 F 06/23/19 08:00 Pulse 109 H 06/23/19 10:00 Resp 20 06/23/19 10:00 BP 160/92 H 06/23/19 09:40 Pulse Ox 96 06/23/19 10:00 Weight - Most Recent: 147 lb 12.8 oz I&O - Last 24 Hours: Intake & Output 06/22/19 06/23/19 06/23/19 22:59 06:59 14:59 Intake Total 70 25 Output Total 0 Balance 70 25 Med Orders - Current: Current Medications Acetaminophen (Tylenol) 650 mg PO Q4H PRN PRN Reason: Pain/Fever Last Admin: 06/22/19 16:12 Dose: 650 mg Albuterol (Ventolin Hfa) 0 gm INH Q6H PRN PRN Reason: difficulty breathing Last Admin: 06/22/19 16:15 Dose: 2 puff Atenolol (Tenormin) 100 mg PO BEDTIME [facility] Azithromycin (Zithromax) 500 mg PO Q24H [facility] Stop: 06/23/19 16:31 Last Admin: 06/22/19 16:11 Dose: 500 mg Cefdinir (Omnicef) 300 mg PO BID [facility] Stop: 06/26/19 09:01 Last Admin: 06/23/19 09:40 Dose: 300 mg Enoxaparin Sodium (Lovenox) 30 mg SUBCUT Q24H [facility] Last Admin: 06/23/19 08:13 Dose: 30 mg Famotidine (Pepcid) 20 mg PO BID [facility] Last Admin: 06/23/19 08:14 Dose: 20 mg Fentanyl (Duragesic) 25 mcg TRDERM Q72H [facility] Last Admin: 06/21/19 16:51 Dose: 25 mcg Furosemide (Lasix) 40 mg PO DAILY [facility] Last Admin: 06/23/19 08:14 Dose: 40 mg Isosorbide Mononitrate (Imdur) 30 mg PO BEDTIME [facility] Last Admin: 06/22/19 20:21 Dose: 30 mg Isosorbide Mononitrate (Imdur) 60 mg PO DAILY [facility] Last Admin: 06/23/19 08:14 Dose: 60 mg Lorazepam (Ativan) 1 mg PO Q4H PRN PRN Reason: air hunger Last Admin: 06/23/19 08:29 Dose: 1 mg Losartan Potassium (Cozaar) 50 mg PO DAILY [facility] Last Admin: 06/23/19 09:40 Dose: 50 mg Melatonin (Melatonin) 6 mg PO BEDTIME PRN PRN Reason: Insomnia Metoclopramide HCl (Reglan) 5 mg PO Q8H PRN PRN Reason: Nausea Last Admin: 06/21/19 21:37 Dose: 5 mg Morphine Sulfate (Morphine 10 Mg/0.5 Ml Oral Syringe) 5 mg SL Q30M PRN PRN Reason: PAIN/SHORTNESS OF BREATH Last Admin: 06/22/19 19:38 Dose: 5 mg Nitroglycerin (Nitrostat) 0.4 mg SL Q5M PRN PRN Reason: Chest Pain Last Admin: 06/22/19 16:43 Dose: 0.4 mg Oxazepam (Serax) 15 mg PO BEDTIME [facility] Last Admin: 06/22/19 20:22 Dose: 15 mg Saccharomyces Boulardii (Florastor) 250 mg PO BID [facility] Last Admin: 06/23/19 08:13 Dose: 250 mg Simethicone (Simethicone) 80 mg PO TIDPC [facility] Last Admin: 06/23/19 08:14 Dose: 80 mg Discontinued Medications Ceftriaxone Sodium (Rocephin) 1 gm IVPUSH Q24H [facility] Last Admin: 06/21/19 16:57 Dose: 1 gm Ceftriaxone Sodium (Rocephin) 1 gm IM Q24H [facility] Last Admin: 06/22/19 16:37 Dose: 1 gm Diatrizoate Meglum/Diatrizoate Sod (Gastrografin 37%) 30 ml PO . DIRECTED ONE Stop: 06/19/19 12:13 Last Admin: 06/19/19 12:21 Dose: 30 ml Enoxaparin Sodium (Lovenox) 30 mg SUBCUT Q24H [facility] Last Admin: 06/19/19 02:20 Dose: 30 mg Hydromorphone HCl (Dilaudid) 2 mg IVPUSH ONETIME ONE Stop: 06/18/19 22:32 Last Admin: 06/18/19 22:50 Dose: 2 mg Hydromorphone HCl (Dilaudid) 1 mg IVPUSH ONETIME ONE Stop: 06/18/19 23:54 Last Admin: 06/18/19 23:56 Dose: 1 mg Hydromorphone HCl (Dilaudid) 1 mg IVPUSH Q4H PRN PRN Reason: Pain Last Admin: 06/21/19 13:35 Dose: 1 mg Sodium Chloride (Normal Saline) 1,000 mls @ 999 mls/hr IV ASDIRECTED [facility] Last Admin: 06/18/19 23:00 Dose: 999 mls/hr Sodium Chloride (Normal Saline) 1,000 mls @ 50 mls/hr IV ASDIRECTED [facility] Last Admin: 06/20/19 13:02 Dose: 75 mls/hr Azithromycin 500 mg/ Sodium (Chloride) 250 mls @ 250 mls/hr IV Q24H [facility] Last Admin: 06/21/19 16:57 Dose: 250 mls/hr Isosorbide Mononitrate (Imdur) 60 mg PO DAILY [facility] Last Admin: 06/20/19 11:45 Dose: Not Given Isosorbide Mononitrate (Imdur) 60 mg PO DAILY [facility] Last Admin: 06/21/19 08:25 Dose: 60 mg Isosorbide Mononitrate (Imdur) 60 mg PO ONETIME ONE Stop: 06/20/19 11:16 Last Admin: 06/20/19 11:34 Dose: 60 mg Lorazepam (Ativan) 1 mg IVPUSH Q8H PRN PRN Reason: Anxiety Last Admin: 06/19/19 19:24 Dose: 1 mg Metoclopramide HCl (Reglan) 5 mg IV NOW STA Stop: 06/19/19 00:24 Last Admin: 06/19/19 01:16 Dose: 5 mg Morphine Sulfate (Morphine 10 Mg/0.5 Ml Oral Syringe) 5 mg PO Q30M PRN PRN Reason: PAIN/SHORTNESS OF BREATH Naloxone HCl (Narcan) 0.2 mg IVPUSH NOW STA Stop: 06/18/19 23:41 Last Admin: 06/18/19 23:44 Dose: 0.2 mg Nitroglycerin (Nitro-Bid 2%) 1 gm TOP Q8H [facility] Last Admin: 06/20/19 03:45 Dose: Not Given Ondansetron HCl (Zofran) 4 mg IVPUSH ONETIME ONE Stop: 06/18/19 23:23 Last Admin: 06/18/19 23:30 Dose: 4 mg Ondansetron HCl (Zofran) 4 mg IVPUSH ONETIME ONE Stop: 06/19/19 00:24 Last Admin: 06/19/19 01:16 Dose: 4 mg Ondansetron HCl (Zofran) 4 mg IVPUSH ONETIME ONE Stop: 06/19/19 00:59 Last Admin: 06/19/19 01:35 Dose: Not Given Ondansetron HCl (Zofran) 4 mg IVPUSH Q6H PRN PRN Reason: NAUSEA Last Admin: 06/19/19 09:46 Dose: 4 mg Simethicone (Infants' Gas Relief) 80 mg PO ONETIME ONE Stop: 06/18/19 22:32 Last Admin: 06/18/19 23:11 Dose: Not Given Simethicone (Simethicone) Confirm Administered Dose 80 mg .ROUTE .STK-MED ONE Stop: 06/18/19 22:57 Last Admin: 06/18/19 23:07 Dose: Not Given Sodium Chloride (Saline Flush) 10 ml FLUSH ASDIRECTED PRN PRN Reason: Keep Vein Open Last Admin: 06/21/19 18:09 Dose: 10 ml - Exam General: Alert, Cooperative, Mild Distress (audible wheezing, states he is very tired.) Lungs: Normal Respiratory Effort, Decreased Breath Sounds, Crackles, Wheezing Cardiovascular: Regular Rhythm, Tachycardia GI/Abdominal Exam: Normal Bowel Sounds, Soft, No Distention, Tender (mild diffuse ) Extremities: No Pedal Edema Sepsis Event Note - Evaluation Sepsis Screening Result: No Definite Risk - Focused Exam Vital Signs: Vital Signs Temp Pulse Resp BP BP Pulse Ox 06/23/19 10:00 109 H 20 96 06/23/19 09:40 160/92 H 06/23/19 08:00 97.1 F 120 H 22 H 160/92 H 94 L 06/23/19 02:50 91 L 06/23/19 02:45 97.7 F 122 H 24 H 152/92 H 80 L Date Exam was Performed: 06/23/19 Time Exam was Performed: 11:58 - Problem List & Annotations (1) Partial bowel obstruction SNOMED Code(s): 96093069126994499 Code(s): K56.600 - PARTIAL INTESTINAL OBSTRUCTION, UNSPECIFIED TO CAUSE Status: Acute Current Visit: Yes Annotation/Comment:: distal ileum, stable. Tolerated bland diet but now no appetite, denies worsening pain. (2) Pneumonia SNOMED Code(s): 797924748 Code(s): J18.9 - PNEUMONIA, UNSPECIFIED ORGANISM Status: Acute Current Visit: Yes Annotation/Comment:: bilateral, bases, upper lobes with questionable abscess nodules. (3) Pancreatic mass Status: Acute Current Visit: Yes (4) Cecum mass SNOMED Code(s): 922938848, 190167969 Code(s): K63.89 - OTHER SPECIFIED DISEASES OF INTESTINE Status: Acute Current Visit: Yes (5) Abdominal pain SNOMED Code(s): 62489725 Code(s): R10.9 - UNSPECIFIED ABDOMINAL PAIN Status: Acute Current Visit: Yes Qualifiers: Abdominal location: generalized Qualified Code(s): R10.84 - Generalized abdominal pain Annotation/Comment:: Stable. (6) CKD (chronic kidney disease) SNOMED Code(s): 417519342 Code(s): N18.9 - CHRONIC KIDNEY DISEASE, UNSPECIFIED Status: Acute Current Visit: No (7) Congestive heart failure (CHF) SNOMED Code(s): 95807903 Code(s): I50.9 - HEART FAILURE, UNSPECIFIED Status: Acute Current Visit: No Qualifiers: Qualified Code(s): I50.21 - Acute systolic (congestive) heart failure - Problem List Review Problem List Initiated/Reviewed/Updated: Yes - My Orders Last 24 Hours: My Active Orders 06/22/19 13:10 CORONAVIRUS COVID-19, ARABELLA Routine INPATIENT Routine 06/22/19 16:30 Azithromycin [Zithromax] 500 mg PO Q24H 06/23/19 09:00 Cefdinir [Omnicef] 300 mg PO BID Losartan [Cozaar] 50 mg PO DAILY 06/23/19 10:01 Melatonin 6 mg PO BEDTIME PRN 06/23/19 21:00 atenoloL [Tenormin] 100 mg PO BEDTIME 06/24/19 06:00 BASIC METABOLIC PANEL,BMP [CHEM] Routine CBC WITH AUTO DIFF [HEME] Routine - Plan Plan:: 1. Cefdinir 300 mg bid and Azithromycin 500 mg day 5, Florastor 250 mg bid. 2. Change to Morphine SL & Ativan oral as needed anxiety, Fentanyl patch change to 25 mcg. 3. Hydrogel, 4x4 gauze, with Kerlix to Right spencer daily. 4. Diet as tolerated. 5. Simethicone as needed gas. 6. DVT prophylaxis: Lovenox 40 mg daily. 7. CODE STATUS: DNR/DNI per his living will. He does not want surgery, willing to treat the pneumonia, pulled out his IV so medications changed to oral equivalents, Family is now desiring NH with hospice. Covid screen ordered for NH placement. Patient has declined from yesterday, sleeping more, having increased signs of heart failure. Daughter will be screened and gowned to come visit, will discuss making him comfort measures while we wait for Covid screen for NH placement, given his change in last 24 hours, may need to be put in swing bed as it may not be long for him.
[2019-06-23] MEDS: Azithromycin 500 MG Tab PO SCH (16:31)
[2019-06-23] MEDS: Isosorbide Mononitrate 30 MG Tab.ER PO SCH (20:55)
[2019-06-24] MEDS ORDERED: Levofloxacin 500 MG Tab PO SCH (08:15)
[2019-06-24] MEDS: Enoxaparin 30 MG/0.3 ML Syringe SUBCUT SCH (08:55)
[2019-06-24] MEDS: Saccharomyces Boulardii (Probiotic) 250 MG Cap PO SCH ×2 (08:56→21:03)
[2019-06-24] MEDS: Isosorbide Mononitrate 60 MG Tab.ER PO SCH (08:57)
[2019-06-24] MEDS: Furosemide 40 MG Tab PO SCH (08:57)
[2019-06-24] MEDS: Simethicone 80 MG Tab.Chew PO SCH ×3 (08:57→18:36)
[2019-06-24] MEDS: Losartan 50 MG Tab PO SCH (08:58)
--- NOTE | 2019-06-24 11:07 | PCM.PN ---
- General Info Date of Service: 06/24/19 Admission Dx/Problem (Free Text): Scott is up in the chair this morning, ate 75% of his breakfast. Denies any abdominal pain. No nausea. States breathing is better. Feels weak. He would like a family meeting with Lisa, his daughter Екатерина, caregiver Renee and myself today to go over plan. He does remember his daughters and Renee coming to visit yesterday. He states he is home alone in the evenings for 12-15 hours. Spoke with CLIFFORD Massey with Dr Montano's office at [facility], she had received call from patient on getting his Diabetic shoes, we had also sent CD of his CT scans for Dr Montano. Shilpa stated that Dr Montano is in the hospital for next week or so and would not be able to review scans. I will let family know this. He is not sure if he wants to do hospice or palliative care. Phelps was placed yesterday as he was not getting up and only urinating 100 ml at a time with over 300 ml residual. Functional Status: Reports: Pain Controlled, Tolerating Diet - Patient Data Vitals - Most Recent: Last Vital Signs Temp 97.5 F 06/24/19 07:20 Pulse 95 06/24/19 07:20 Resp 20 06/24/19 07:20 BP 130/81 06/24/19 08:58 Pulse Ox 97 06/24/19 07:20 Weight - Most Recent: 147 lb 12.8 oz I&O - Last 24 Hours: Intake & Output 06/23/19 06/24/19 06/24/19 22:59 06:59 14:59 Intake Total 200 300 Output Total 400 240 Balance -200 60 Lab Results Last 24 Hours: Laboratory Results - last 24 hr 06/22/19 06/24/19 06/24/19 Range/Units 13:10 06:30 06:30 WBC 11.8 (4.5-12.0) X10-3/uL RBC 3.90 L (4.30-5.75) x10(6)uL Hgb 11.7 L (13.5-17.8) g/dL Hct 35.5 (30.0-51.3) % MCV 91.2 (80-96) fL MCH 30.0 (27.7-33.6) pg MCHC 32.9 (32.2-35.4) g/dL RDW 14.8 (11.5-15.5) % Plt Count 208 (125-369) X10(3)uL MPV 10.1 (7.4-10.4) fL Add Manual Diff Yes Neutrophils % (Manual) 90 H (46-82) % Lymphocytes % (Manual) 4 L (13-37) % Monocytes % (Manual) 4 (4-12) % Eosinophils % (Manual) 2 (0-5) % Sodium 138 (135-145) mmol/L Potassium 4.6 (3.5-5.3) mmol/L Chloride 102 (100-110) mmol/L Carbon Dioxide 30 (21-32) mmol/L BUN 44 H (7-18) mg/dL Creatinine 1.9 H (0.70-1.30) mg/dL Est Cr Clr Drug Dosing 27.44 mL/min Estimated GFR (MDRD) 34 L (>60) BUN/Creatinine Ratio 23.2 H (9-20) Glucose 310 H (80-116) mg/dL Calcium 8.1 L (8.6-10.2) mg/dL Coronavirus (PCR) Not detected (Not Detected) Med Orders - Current: Current Medications Acetaminophen (Tylenol) 650 mg PO Q4H PRN PRN Reason: Pain/Fever Last Admin: 06/22/19 16:12 Dose: 650 mg Albuterol (Ventolin Hfa) 0 gm INH Q6H PRN PRN Reason: difficulty breathing Last Admin: 06/22/19 16:15 Dose: 2 puff Atenolol (Tenormin) 100 mg PO BEDTIME [facility] Last Admin: 06/23/19 20:54 Dose: 100 mg Enoxaparin Sodium (Lovenox) 30 mg SUBCUT Q24H [facility] Last Admin: 06/24/19 08:55 Dose: 30 mg Famotidine (Pepcid) 10 mg PO BEDTIME [facility] Fentanyl (Duragesic) 25 mcg TRDERM Q72H [facility] Last Admin: 06/21/19 16:51 Dose: 25 mcg Furosemide (Lasix) 40 mg PO DAILY [facility] Last Admin: 06/24/19 08:57 Dose: 40 mg Glyburide (Micronase) 10 mg PO BIDMEALS [facility] Isosorbide Mononitrate (Imdur) 30 mg PO BEDTIME [facility] Last Admin: 06/23/19 20:55 Dose: 30 mg Isosorbide Mononitrate (Imdur) 60 mg PO DAILY [facility] Last Admin: 06/24/19 08:57 Dose: 60 mg Levofloxacin (Levaquin) 250 mg PO DAILY [facility] Lorazepam (Ativan) 1 mg PO Q4H PRN PRN Reason: air hunger Last Admin: 06/23/19 08:29 Dose: 1 mg Losartan Potassium (Cozaar) 50 mg PO DAILY [facility] Last Admin: 06/24/19 08:58 Dose: 50 mg Melatonin (Melatonin) 6 mg PO BEDTIME PRN PRN Reason: Insomnia Metoclopramide HCl (Reglan) 5 mg PO Q8H PRN PRN Reason: Nausea Last Admin: 06/21/19 21:37 Dose: 5 mg Morphine Sulfate (Morphine 10 Mg/0.5 Ml Oral Syringe) 5 mg SL Q30M PRN PRN Reason: PAIN/SHORTNESS OF BREATH Last Admin: 06/22/19 19:38 Dose: 5 mg Nitroglycerin (Nitrostat) 0.4 mg SL Q5M PRN PRN Reason: Chest Pain Last Admin: 06/22/19 16:43 Dose: 0.4 mg Oxazepam (Serax) 15 mg PO BEDTIME [facility] Last Admin: 06/23/19 20:54 Dose: 15 mg Saccharomyces Boulardii (Florastor) 250 mg PO BID [facility] Last Admin: 06/24/19 08:56 Dose: 250 mg Simethicone (Simethicone) 80 mg PO TIDPC [facility] Last Admin: 06/24/19 08:57 Dose: 80 mg Sitagliptin Phosphate (Januvia) 50 mg PO DAILY [facility] Last Admin: 06/24/19 10:30 Dose: 50 mg Discontinued Medications Azithromycin (Zithromax) 500 mg PO Q24H [facility] Stop: 06/23/19 16:31 Last Admin: 06/23/19 16:31 Dose: 500 mg Cefdinir (Omnicef) 300 mg PO BID [facility] Stop: 06/26/19 09:01 Last Admin: 06/23/19 20:54 Dose: 300 mg Ceftriaxone Sodium (Rocephin) 1 gm IVPUSH Q24H [facility] Last Admin: 06/21/19 16:57 Dose: 1 gm Ceftriaxone Sodium (Rocephin) 1 gm IM Q24H [facility] Last Admin: 06/22/19 16:37 Dose: 1 gm Diatrizoate Meglum/Diatrizoate Sod (Gastrografin 37%) 30 ml PO . DIRECTED ONE Stop: 06/19/19 12:13 Last Admin: 06/19/19 12:21 Dose: 30 ml Enoxaparin Sodium (Lovenox) 30 mg SUBCUT Q24H [facility] Last Admin: 06/19/19 02:20 Dose: 30 mg Famotidine (Pepcid) 20 mg PO BID [facility] Last Admin: 06/23/19 20:55 Dose: 20 mg Hydromorphone HCl (Dilaudid) 2 mg IVPUSH ONETIME ONE Stop: 06/18/19 22:32 Last Admin: 06/18/19 22:50 Dose: 2 mg Hydromorphone HCl (Dilaudid) 1 mg IVPUSH ONETIME ONE Stop: 06/18/19 23:54 Last Admin: 06/18/19 23:56 Dose: 1 mg Hydromorphone HCl (Dilaudid) 1 mg IVPUSH Q4H PRN PRN Reason: Pain Last Admin: 06/21/19 13:35 Dose: 1 mg Sodium Chloride (Normal Saline) 1,000 mls @ 999 mls/hr IV ASDIRECTED [facility] Last Admin: 06/18/19 23:00 Dose: 999 mls/hr Sodium Chloride (Normal Saline) 1,000 mls @ 50 mls/hr IV ASDIRECTED [facility] Last Admin: 06/20/19 13:02 Dose: 75 mls/hr Azithromycin 500 mg/ Sodium (Chloride) 250 mls @ 250 mls/hr IV Q24H [facility] Last Admin: 06/21/19 16:57 Dose: 250 mls/hr Isosorbide Mononitrate (Imdur) 60 mg PO DAILY [facility] Last Admin: 06/20/19 11:45 Dose: Not Given Isosorbide Mononitrate (Imdur) 60 mg PO DAILY [facility] Last Admin: 06/21/19 08:25 Dose: 60 mg Isosorbide Mononitrate (Imdur) 60 mg PO ONETIME ONE Stop: 06/20/19 11:16 Last Admin: 06/20/19 11:34 Dose: 60 mg Levofloxacin (Levaquin) 500 mg PO Q24H [facility] Last Admin: 06/24/19 08:56 Dose: 500 mg Lorazepam (Ativan) 1 mg IVPUSH Q8H PRN PRN Reason: Anxiety Last Admin: 06/19/19 19:24 Dose: 1 mg Metoclopramide HCl (Reglan) 5 mg IV NOW STA Stop: 06/19/19 00:24 Last Admin: 06/19/19 01:16 Dose: 5 mg Morphine Sulfate (Morphine 10 Mg/0.5 Ml Oral Syringe) 5 mg PO Q30M PRN PRN Reason: PAIN/SHORTNESS OF BREATH Naloxone HCl (Narcan) 0.2 mg IVPUSH NOW STA Stop: 06/18/19 23:41 Last Admin: 06/18/19 23:44 Dose: 0.2 mg Nitroglycerin (Nitro-Bid 2%) 1 gm TOP Q8H [facility] Last Admin: 06/20/19 03:45 Dose: Not Given Ondansetron HCl (Zofran) 4 mg IVPUSH ONETIME ONE Stop: 06/18/19 23:23 Last Admin: 06/18/19 23:30 Dose: 4 mg Ondansetron HCl (Zofran) 4 mg IVPUSH ONETIME ONE Stop: 06/19/19 00:24 Last Admin: 06/19/19 01:16 Dose: 4 mg Ondansetron HCl (Zofran) 4 mg IVPUSH ONETIME ONE Stop: 06/19/19 00:59 Last Admin: 06/19/19 01:35 Dose: Not Given Ondansetron HCl (Zofran) 4 mg IVPUSH Q6H PRN PRN Reason: NAUSEA Last Admin: 06/19/19 09:46 Dose: 4 mg Simethicone (Infants' Gas Relief) 80 mg PO ONETIME ONE Stop: 06/18/19 22:32 Last Admin: 06/18/19 23:11 Dose: Not Given Simethicone (Simethicone) Confirm Administered Dose 80 mg .ROUTE .STK-MED ONE Stop: 06/18/19 22:57 Last Admin: 06/18/19 23:07 Dose: Not Given Sodium Chloride (Saline Flush) 10 ml FLUSH ASDIRECTED PRN PRN Reason: Keep Vein Open Last Admin: 06/21/19 18:09 Dose: 10 ml - Exam General: Alert, Oriented, Cooperative (states he feels weak), No Acute Distress (mild respiratory distress, sternal retractions) Neck: Trachea Midline Lungs: Decreased Breath Sounds (RR 20, bases). No: Crackles, Wheezing Cardiovascular: Regular Rate, Regular Rhythm GI/Abdominal Exam: Soft, Non-Tender, No Distention, Abnormal Bowel Sounds ( hypoactive) Extremities: No Pedal Edema Sepsis Event Note - Evaluation Sepsis Screening Result: No Definite Risk - Focused Exam Vital Signs: Vital Signs Temp Temp Pulse Resp BP BP Pulse Ox 06/24/19 08:58 130/81 06/24/19 07:20 97.5 F 95 20 130/81 97 06/24/19 00:00 97.3 F 98 18 114/69 97 Pulse Ox 06/24/19 08:58 06/24/19 07:20 06/24/19 00:00 97 Date Exam was Performed: 06/24/19 Time Exam was Performed: 11:02 - Problem List & Annotations (1) Partial bowel obstruction SNOMED Code(s): 24329364434226853 Code(s): K56.600 - PARTIAL INTESTINAL OBSTRUCTION, UNSPECIFIED TO CAUSE Status: Acute Current Visit: Yes Annotation/Comment:: distal ileum secondary to cecal mass. Tolerating diet, pain controlled. (2) Pneumonia SNOMED Code(s): 878716882 Code(s): J18.9 - PNEUMONIA, UNSPECIFIED ORGANISM Status: Acute Current Visit: Yes Annotation/Comment:: bilateral, bases, upper lobes with questionable abscess nodules. Diminished today, some sternal retractions but not tachypnic. No wheezing. WBC up to 11.8 with 90% neutrophils today, IV out so switched to Levofloxacin 500 mg today and then decrease to 250 mg daily. (3) Pancreatic mass Status: Acute Current Visit: Yes (4) Cecum mass SNOMED Code(s): 923461274, 624553791 Code(s): K63.89 - OTHER SPECIFIED DISEASES OF INTESTINE Status: Acute Current Visit: Yes (5) Abdominal pain SNOMED Code(s): 53078688 Code(s): R10.9 - UNSPECIFIED ABDOMINAL PAIN Status: Acute Current Visit: Yes Qualifiers: Abdominal location: generalized Qualified Code(s): R10.84 - Generalized abdominal pain Annotation/Comment:: Stable. (6) CKD (chronic kidney disease) SNOMED Code(s): 118942425 Code(s): N18.9 - CHRONIC KIDNEY DISEASE, UNSPECIFIED Status: Acute Current Visit: No (7) Congestive heart failure (CHF) SNOMED Code(s): 42414472 Code(s): I50.9 - HEART FAILURE, UNSPECIFIED Status: Acute Current Visit: No Qualifiers: Qualified Code(s): I50.21 - Acute systolic (congestive) heart failure (8) Palliative care encounter SNOMED Code(s): 114207434 Code(s): Z51.5 - ENCOUNTER FOR PALLIATIVE CARE Status: Acute Current Visit: Yes - Problem List Review Problem List Initiated/Reviewed/Updated: Yes - My Orders Last 24 Hours: My Active Orders 06/23/19 12:40 Insert Phelps Catheter [Insert Urinary Catheter] [OM.PC] Stat 06/23/19 13:26 Urinary Catheter Assessment [RC] QSHIFT 06/23/19 21:00 atenoloL [Tenormin] 100 mg PO BEDTIME 06/24/19 09:30 SitaGLIPtin [Januvia] 50 mg PO DAILY 06/24/19 18:00 glyBURIDE [Micronase] 10 mg PO BIDMEALS 06/24/19 21:00 Famotidine [Pepcid] 10 mg PO BEDTIME 06/25/19 06:00 BASIC METABOLIC PANEL,BMP [CHEM] Routine CBC WITH AUTO DIFF [HEME] Routine 06/25/19 09:00 levoFLOXacin [Levaquin] 250 mg PO DAILY - Plan Plan:: 1. Change to Levofloxacin 500 mg x 1 then 250 mg daily, Florastor 250 mg bid. 2. Change to Morphine SL & Ativan oral as needed anxiety, Fentanyl patch change to 25 mcg. 3. Hydrogel, 4x4 gauze, with Kerlix to Right spencer daily. 4. Diet as tolerated. 5. Simethicone as needed gas. 6. DVT prophylaxis: Lovenox 40 mg daily. 7. CODE STATUS: DNR/DNI per his living will. He does not want surgery, willing to treat the pneumonia, Family is now desiring NH with hospice vs palliative care. Covid screen negative. Patient has rallied today, ate almost all his breakfast, more alert. He would like family meeting today with Lisa, partner integration planner, myself, his daughter Екатерина and caregiver Renee in regards to discharge plan.
[2019-06-24] MEDS ORDERED: Albuterol/Ipratropium 3.0-0.5 MG/3 ML Neb Soln NEB PRN (14:24)
[2019-06-24] MEDS ORDERED: Hyoscyamine 0.125 MG Tab.SL SL PRN (14:25)
[2019-06-24] MEDS ORDERED: Haloperidol Lactate 2 MG/ML Oral Soln 15 ML Bottle SL PRN (15:30)
[2019-06-24] MEDS: fentaNYL 25 MCG/HR Transdermal Patch TRDERM SCH ×2 (15:44→15:51)
[2019-06-24] MEDS: glyBURIDE 5 MG Tab PO SCH (18:14)
[2019-06-24] MEDS: Isosorbide Mononitrate 30 MG Tab.ER PO SCH (20:00)
[2019-06-24] MEDS: Famotidine 10 MG Tab PO SCH (20:04)
[2019-06-25] MEDS: LORazepam 1 MG Tab PO PRN (03:26)
[2019-06-25] MEDS: Enoxaparin 30 MG/0.3 ML Syringe SUBCUT SCH (08:51)
[2019-06-25] MEDS: Saccharomyces Boulardii (Probiotic) 250 MG Cap PO SCH ×2 (08:52→20:00)
[2019-06-25] MEDS: Levofloxacin 250 MG Tab PO SCH (08:52)
[2019-06-25] MEDS: Furosemide 40 MG Tab PO SCH (08:52)
[2019-06-25] MEDS: Losartan 50 MG Tab PO SCH (08:52)
[2019-06-25] MEDS: Simethicone 80 MG Tab.Chew PO SCH ×3 (08:52→18:05)
[2019-06-25] MEDS: Isosorbide Mononitrate 60 MG Tab.ER PO SCH (08:52)
[2019-06-25] MEDS: glyBURIDE 5 MG Tab PO SCH ×2 (08:53→18:04)
--- NOTE | 2019-06-25 15:25 | PCM.PN ---
- General Info Date of Service: 06/25/19 Admission Dx/Problem (Free Text): Scott had some Ativan overnight, did not have any Nitro. Pain is controlled with sublingual Morphine. Denies any nausea or vomiting. No cough. Shortness of breath improved. No fevers. - Patient Data Vitals - Most Recent: Last Vital Signs Temp 97.6 F 06/25/19 08:00 Pulse 80 06/25/19 08:00 Resp 16 06/25/19 08:00 BP 121/73 06/25/19 08:52 Pulse Ox 93 L 06/25/19 08:00 Weight - Most Recent: 147 lb 12.8 oz I&O - Last 24 Hours: Intake & Output 06/25/19 06/25/19 06/25/19 06:59 14:59 22:59 Intake Total 100 480 Output Total 230 750 Balance -130 -270 Lab Results Last 24 Hours: Laboratory Results - last 24 hr 06/25/19 06/25/19 Range/Units 06:25 06:25 WBC 10.8 (4.5-12.0) X10-3/uL RBC 3.90 L (4.30-5.75) x10(6)uL Hgb 11.8 L (13.5-17.8) g/dL Hct 35.2 (30.0-51.3) % MCV 90.3 (80-96) fL MCH 30.2 (27.7-33.6) pg MCHC 33.5 (32.2-35.4) g/dL RDW 14.4 (11.5-15.5) % Plt Count 192 (125-369) X10(3)uL MPV 9.2 (7.4-10.4) fL Add Manual Diff Yes Neutrophils % (Manual) 78 (46-82) % Band Neutrophils % 4 (0-6) % Lymphocytes % (Manual) 11 L (13-37) % Monocytes % (Manual) 5 (4-12) % Eosinophils % (Manual) 2 (0-5) % Sodium 138 (135-145) mmol/L Potassium 4.3 (3.5-5.3) mmol/L Chloride 101 (100-110) mmol/L Carbon Dioxide 30 (21-32) mmol/L BUN 45 H (7-18) mg/dL Creatinine 1.9 H (0.70-1.30) mg/dL Est Cr Clr Drug Dosing 27.44 mL/min Estimated GFR (MDRD) 34 L (>60) BUN/Creatinine Ratio 23.7 H (9-20) Glucose 245 H (80-116) mg/dL Calcium 7.8 L (8.6-10.2) mg/dL Med Orders - Current: Current Medications Acetaminophen (Tylenol) 650 mg PO Q4H PRN PRN Reason: Pain/Fever Last Admin: 06/22/19 16:12 Dose: 650 mg Albuterol (Ventolin Hfa) 0 gm INH Q6H PRN PRN Reason: difficulty breathing Last Admin: 06/22/19 16:15 Dose: 2 puff Albuterol/Ipratropium (Duoneb 3.0-0.5 Mg/3 Ml) 3 ml NEB Q4H PRN PRN Reason: Shortness of Breath Atenolol (Tenormin) 100 mg PO BEDTIME [facility] Last Admin: 06/24/19 20:00 Dose: 100 mg Enoxaparin Sodium (Lovenox) 30 mg SUBCUT Q24H [facility] Last Admin: 06/25/19 08:51 Dose: 30 mg Famotidine (Pepcid) 10 mg PO BEDTIME [facility] Last Admin: 06/24/19 20:04 Dose: 10 mg Fentanyl (Duragesic) 25 mcg TRDERM Q72H [facility] Last Admin: 06/24/19 15:51 Dose: 25 mcg Furosemide (Lasix) 40 mg PO DAILY [facility] Last Admin: 06/25/19 08:52 Dose: 40 mg Glyburide (Micronase) 10 mg PO BIDMEALS [facility] Last Admin: 06/25/19 08:53 Dose: 10 mg Haloperidol Lactate (Haldol 2 Mg/Ml Soln) 0.5 mg SL Q6H PRN PRN Reason: NAUSEA Hyoscyamine (Hyomax-Sl) 0.125 mg SL Q4H PRN PRN Reason: Other Isosorbide Mononitrate (Imdur) 30 mg PO BEDTIME [facility] Last Admin: 06/24/19 20:00 Dose: 30 mg Isosorbide Mononitrate (Imdur) 60 mg PO DAILY [facility] Last Admin: 06/25/19 08:52 Dose: 60 mg Levofloxacin (Levaquin) 250 mg PO DAILY [facility] Last Admin: 06/25/19 08:52 Dose: 250 mg Lorazepam (Ativan) 1 mg PO Q4H PRN PRN Reason: air hunger Last Admin: 06/25/19 03:26 Dose: 1 mg Losartan Potassium (Cozaar) 50 mg PO DAILY [facility] Last Admin: 06/25/19 08:52 Dose: 50 mg Melatonin (Melatonin) 6 mg PO BEDTIME PRN PRN Reason: Insomnia Morphine Sulfate (Morphine 10 Mg/0.5 Ml Oral Syringe) 5 mg SL Q30M PRN PRN Reason: PAIN/SHORTNESS OF BREATH Last Admin: 06/22/19 19:38 Dose: 5 mg Nitroglycerin (Nitrostat) 0.4 mg SL Q5M PRN PRN Reason: Chest Pain Last Admin: 06/22/19 16:43 Dose: 0.4 mg Oxazepam (Serax) 15 mg PO BEDTIME [facility] Last Admin: 06/24/19 20:01 Dose: 15 mg Saccharomyces Boulardii (Florastor) 250 mg PO BID [facility] Last Admin: 06/25/19 08:52 Dose: 250 mg Simethicone (Simethicone) 80 mg PO TIDPC [facility] Last Admin: 06/25/19 12:28 Dose: 80 mg Sitagliptin Phosphate (Januvia) 50 mg PO DAILY [facility] Last Admin: 06/25/19 08:52 Dose: 50 mg Discontinued Medications Azithromycin (Zithromax) 500 mg PO Q24H [facility] Stop: 06/23/19 16:31 Last Admin: 06/23/19 16:31 Dose: 500 mg Cefdinir (Omnicef) 300 mg PO BID [facility] Stop: 06/26/19 09:01 Last Admin: 06/23/19 20:54 Dose: 300 mg Ceftriaxone Sodium (Rocephin) 1 gm IVPUSH Q24H [facility] Last Admin: 06/21/19 16:57 Dose: 1 gm Ceftriaxone Sodium (Rocephin) 1 gm IM Q24H [facility] Last Admin: 06/22/19 16:37 Dose: 1 gm Diatrizoate Meglum/Diatrizoate Sod (Gastrografin 37%) 30 ml PO . DIRECTED ONE Stop: 06/19/19 12:13 Last Admin: 06/19/19 12:21 Dose: 30 ml Enoxaparin Sodium (Lovenox) 30 mg SUBCUT Q24H [facility] Last Admin: 06/19/19 02:20 Dose: 30 mg Famotidine (Pepcid) 20 mg PO BID [facility] Last Admin: 06/23/19 20:55 Dose: 20 mg Hydromorphone HCl (Dilaudid) 2 mg IVPUSH ONETIME ONE Stop: 06/18/19 22:32 Last Admin: 06/18/19 22:50 Dose: 2 mg Hydromorphone HCl (Dilaudid) 1 mg IVPUSH ONETIME ONE Stop: 06/18/19 23:54 Last Admin: 06/18/19 23:56 Dose: 1 mg Hydromorphone HCl (Dilaudid) 1 mg IVPUSH Q4H PRN PRN Reason: Pain Last Admin: 06/21/19 13:35 Dose: 1 mg Sodium Chloride (Normal Saline) 1,000 mls @ 999 mls/hr IV ASDIRECTED [facility] Last Admin: 06/18/19 23:00 Dose: 999 mls/hr Sodium Chloride (Normal Saline) 1,000 mls @ 50 mls/hr IV ASDIRECTED [facility] Last Admin: 06/20/19 13:02 Dose: 75 mls/hr Azithromycin 500 mg/ Sodium (Chloride) 250 mls @ 250 mls/hr IV Q24H [facility] Last Admin: 06/21/19 16:57 Dose: 250 mls/hr Isosorbide Mononitrate (Imdur) 60 mg PO DAILY [facility] Last Admin: 06/20/19 11:45 Dose: Not Given Isosorbide Mononitrate (Imdur) 60 mg PO DAILY [facility] Last Admin: 06/21/19 08:25 Dose: 60 mg Isosorbide Mononitrate (Imdur) 60 mg PO ONETIME ONE Stop: 06/20/19 11:16 Last Admin: 06/20/19 11:34 Dose: 60 mg Levofloxacin (Levaquin) 500 mg PO Q24H [facility] Last Admin: 06/24/19 08:56 Dose: 500 mg Lorazepam (Ativan) 1 mg IVPUSH Q8H PRN PRN Reason: Anxiety Last Admin: 06/19/19 19:24 Dose: 1 mg Metoclopramide HCl (Reglan) 5 mg IV NOW STA Stop: 06/19/19 00:24 Last Admin: 06/19/19 01:16 Dose: 5 mg Metoclopramide HCl (Reglan) 5 mg PO Q8H PRN PRN Reason: Nausea Last Admin: 06/21/19 21:37 Dose: 5 mg Morphine Sulfate (Morphine 10 Mg/0.5 Ml Oral Syringe) 5 mg PO Q30M PRN PRN Reason: PAIN/SHORTNESS OF BREATH Naloxone HCl (Narcan) 0.2 mg IVPUSH NOW STA Stop: 06/18/19 23:41 Last Admin: 06/18/19 23:44 Dose: 0.2 mg Nitroglycerin (Nitro-Bid 2%) 1 gm TOP Q8H [facility] Last Admin: 06/20/19 03:45 Dose: Not Given Ondansetron HCl (Zofran) 4 mg IVPUSH ONETIME ONE Stop: 06/18/19 23:23 Last Admin: 06/18/19 23:30 Dose: 4 mg Ondansetron HCl (Zofran) 4 mg IVPUSH ONETIME ONE Stop: 06/19/19 00:24 Last Admin: 06/19/19 01:16 Dose: 4 mg Ondansetron HCl (Zofran) 4 mg IVPUSH ONETIME ONE Stop: 06/19/19 00:59 Last Admin: 06/19/19 01:35 Dose: Not Given Ondansetron HCl (Zofran) 4 mg IVPUSH Q6H PRN PRN Reason: NAUSEA Last Admin: 06/19/19 09:46 Dose: 4 mg Simethicone (Infants' Gas Relief) 80 mg PO ONETIME ONE Stop: 06/18/19 22:32 Last Admin: 06/18/19 23:11 Dose: Not Given Simethicone (Simethicone) Confirm Administered Dose 80 mg .ROUTE .STK-MED ONE Stop: 06/18/19 22:57 Last Admin: 06/18/19 23:07 Dose: Not Given Sodium Chloride (Saline Flush) 10 ml FLUSH ASDIRECTED PRN PRN Reason: Keep Vein Open Last Admin: 06/21/19 18:09 Dose: 10 ml - Exam General: Alert, Oriented, Cooperative, No Acute Distress Lungs: Normal Respiratory Effort, Decreased Breath Sounds. No: Crackles, Wheezing Cardiovascular: Regular Rate, Regular Rhythm GI/Abdominal Exam: Normal Bowel Sounds, Soft, Non-Tender, No Distention Extremities: No Pedal Edema Wound/Incisions: Other (small ulceration on right spencer) Sepsis Event Note - Evaluation Sepsis Screening Result: No Definite Risk - Focused Exam Vital Signs: Vital Signs Temp Pulse Resp BP BP Pulse Ox 06/25/19 08:52 121/73 06/25/19 08:00 97.6 F 80 16 121/73 93 L Date Exam was Performed: 06/25/19 Time Exam was Performed: 15:19 - Problem List & Annotations (1) Partial bowel obstruction SNOMED Code(s): 54141858243993241 Code(s): K56.600 - PARTIAL INTESTINAL OBSTRUCTION, UNSPECIFIED TO CAUSE Status: Acute Current Visit: Yes Annotation/Comment:: distal ileum secondary to cecal mass. Tolerating diet, pain controlled. (2) Pneumonia SNOMED Code(s): 848899479 Code(s): J18.9 - PNEUMONIA, UNSPECIFIED ORGANISM Status: Acute Current Visit: Yes Annotation/Comment:: bilateral, bases, upper lobes with questionable abscess nodules. WBC normal, 78 % neutrophils. Levofloxacin 250 mg daily day 2 of 7. (3) Pancreatic mass Status: Acute Current Visit: Yes (4) Cecum mass SNOMED Code(s): 892919861, 748856198 Code(s): K63.89 - OTHER SPECIFIED DISEASES OF INTESTINE Status: Acute Current Visit: Yes (5) Abdominal pain SNOMED Code(s): 41951073 Code(s): R10.9 - UNSPECIFIED ABDOMINAL PAIN Status: Acute Current Visit: Yes Qualifiers: Abdominal location: generalized Qualified Code(s): R10.84 - Generalized abdominal pain Annotation/Comment:: Stable. (6) CKD (chronic kidney disease) SNOMED Code(s): 153239421 Code(s): N18.9 - CHRONIC KIDNEY DISEASE, UNSPECIFIED Status: Acute Current Visit: No (7) Congestive heart failure (CHF) SNOMED Code(s): 88535907 Code(s): I50.9 - HEART FAILURE, UNSPECIFIED Status: Acute Current Visit: No Qualifiers: Qualified Code(s): I50.21 - Acute systolic (congestive) heart failure (8) Palliative care encounter SNOMED Code(s): 606535870 Code(s): Z51.5 - ENCOUNTER FOR PALLIATIVE CARE Status: Acute Current Visit: Yes - Problem List Review Problem List Initiated/Reviewed/Updated: Yes - My Orders Last 24 Hours: My Active Orders 06/24/19 14:24 RT Aerosol Therapy [RC] ASDIRECTED Albuterol/Ipratropium [DuoNeb 3.0-0.5 MG/3 ML] 3 ml NEB Q4H PRN 06/24/19 14:25 Hyoscyamine [Hyomax-SL] 0.125 mg SL Q4H PRN 06/24/19 15:30 Haloperidol Lactate [Haldol 2 MG/ML Soln] 0.5 mg SL Q6H PRN 06/24/19 18:00 glyBURIDE [Micronase] 10 mg PO BIDMEALS 06/24/19 21:00 Famotidine [Pepcid] 10 mg PO BEDTIME 06/25/19 09:00 levoFLOXacin [Levaquin] 250 mg PO DAILY - Plan Plan:: 1. Change to Levofloxacin 250 mg daily day 2 of 7, Florastor 250 mg bid. 2. Change to Morphine SL & Ativan oral as needed anxiety, Fentanyl patch change to 25 mcg. 3. CODE STATUS: DNR/DNI per his living will. 4. Family has decided to have him discharged to the [facility] tomorrow. Hospice consult will be sent at discharge to [facility].
[2019-06-25] MEDS: Isosorbide Mononitrate 30 MG Tab.ER PO SCH (19:59)
[2019-06-25] MEDS: Famotidine 10 MG Tab PO SCH (20:00)
[2019-06-26] MEDS: LORazepam 1 MG Tab PO PRN (01:46)
[2019-06-26] MEDS: Enoxaparin 30 MG/0.3 ML Syringe SUBCUT SCH (09:24)
[2019-06-26] MEDS: glyBURIDE 5 MG Tab PO SCH (09:25)
[2019-06-26] MEDS: Saccharomyces Boulardii (Probiotic) 250 MG Cap PO SCH (09:25)
[2019-06-26] MEDS: Losartan 50 MG Tab PO SCH (09:25)
[2019-06-26] MEDS: Simethicone 80 MG Tab.Chew PO SCH ×2 (09:26→12:59)
[2019-06-26] MEDS: Furosemide 40 MG Tab PO SCH (09:26)
[2019-06-26] MEDS: Isosorbide Mononitrate 60 MG Tab.ER PO SCH (09:26)
[2019-06-26 09:27] VITALS: BP 128/75
[2019-06-26] MEDS: Levofloxacin 250 MG Tab PO SCH (09:27)
[2019-06-26 10:48] VITALS: PULSE 84
[2019-06-26] MEDS ORDERED: Tuberculin, PPD 5 Units/0.1 ML 1 ML MDV IDERM ONE (12:47)
--- NOTE | 2019-06-26 13:07 | DISCH ---
DISCHARGE DATE: 06/26/2019 ADMITTING DIAGNOSES: 1. 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 2. Probable undiagnosed pancreatic cancer. 3. Complicated coronary artery disease. 4. Congestive heart failure. 5. Angina pectoris. 6. Type 2 diabetes mellitus. 7. Resolving pneumonia. HISTORY OF PRESENT ILLNESS: Scott Paayn is an 83-year-old male, admitted on 06/19/2019, increasing abdominal pain, nausea, vomiting. Has a diagnosis of probable cecal cancer, possible pancreatic cancer diagnosed in March 2019. Endoscopic and biopsy intervention were unsuccessful and were to be completed in May of 2019 but due to "pandemic" delayed. He has been on Duragesic patch and oral [place], pain has been increasingly problematic. He has severe underlying coronary artery disease. For past medical history, social history, review of systems, please see HPI. OBJECTIVE: VITAL SIGNS: At the time of discharge, 36.4, pulse of 86, 140/84, 94% on room air, respirations 16. GENERAL: Elderly gentleman, cooperative, conversant, in moderate distress. HEENT: Unremarkable. NECK: Benign. Thyroid small. CHEST: On auscultation, clear all lung cornejo. HEART: On auscultation, occasional ectopy. Soft murmur. ABDOMEN: Benign. Little bit of distention. Good bowel sounds. EXTREMITIES: Well perfused. LABORATORY STUDIES: Most recent on 06/25/2019, hemoglobin 11.8, white count 10,800, BUN 45, creatinine 1.5, GFR 34. 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 2. 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 Accompanied diagnosis, noted above. PLAN: Discharged home. Medications and care, treatment of ongoing disease, intervention and care to be provided along with the [facility] staff hospice. He will be discharged home on Duragesic, morphine, and Ativan for pain management issues. SURGICAL PROCEDURES: None. CONSULTATIONS: None. 30-minute visit, planning, treatment, and completion of discharge. /[id number] [place]/FLOYD
== END 2019-06-26 13:02 | DRG 374 ==
LOC: FB.ED 22:21 → FB.MS 06-19 00:57 → OBSVTOIN 06-19 15:40
PROVIDERS: ADMIT Emergency Medicine; ATTEND Family Medicine
DX: C18.0 Malignant neoplasm of cecum (principal); K56.600 Partial intestinal obstruction, unspecified as to cause; J18.9 Pneumonia, unspecified organism; I50.21 Acute systolic (congestive) heart failure; K63.89 Other specified diseases of intestine; I13.0 Hypertensive heart and chronic kidney disease with heart failure and stage 1 through stage 4 chronic kidney disease, or unspecified chronic kidney disease; K86.9 Disease of pancreas, unspecified; C25.9 Malignant neoplasm of pancreas, unspecified; J44.0 Chronic obstructive pulmonary disease with (acute) lower respiratory infection; Z11.59 Encounter for screening for other viral diseases; Z51.5 Encounter for palliative care; N18.9 Chronic kidney disease, unspecified; E78.00 Pure hypercholesterolemia, unspecified; H54.7 Unspecified visual loss; E11.22 Type 2 diabetes mellitus with diabetic chronic kidney disease; I11.0 Hypertensive heart disease with heart failure; Z66 Do not resuscitate; I25.10 Atherosclerotic heart disease of native coronary artery without angina pectoris; Z88.5 Allergy status to narcotic agent; Z87.01 Personal history of pneumonia (recurrent); I25.2 Old myocardial infarction; M06.9 Rheumatoid arthritis, unspecified; F41.9 Anxiety disorder, unspecified; E11.9 Type 2 diabetes mellitus without complications; Z89.9 Acquired absence of limb, unspecified; Z90.79 Acquired absence of other genital organ(s); Z98.49 Cataract extraction status, unspecified eye; N42.9 Disorder of prostate, unspecified; Z87.442 Personal history of urinary calculi; Z88.0 Allergy status to penicillin; Z88.6 Allergy status to analgesic agent; Z79.84 Long term (current) use of oral hypoglycemic drugs; Z79.02 Long term (current) use of antithrombotics/antiplatelets; Z88.2 Allergy status to sulfonamides; Z79.82 Long term (current) use of aspirin; Z79.899 Other long term (current) drug therapy
CPT/HCPCS: 36415 ×2; 71250; 74176; 80048; 80053; 82150; 83690; 85025 ×2; 96361 ×2; 96374; 96375 ×2; 96376 ×2; 99284; 99285; A9270 ×3; J1170 ×3; J1650; J2060; J2310; J2405 ×3; J2765; J7030 ×3; Q9963; 51702; 80069; 81001; 86580; J0456; J0696; J7050; U0002